=== PATIENT | female | born 1965 | race Two or more races ===

== ENCOUNTER 2016-10-03 03:01 | Inpatient (IN) | payer MEDICAID ==
[~2016-10-03] VITALS: Ht 162.6 cm; Wt 150.1 kg
[~2016-10-03 03:01] MED LIST: ALBU2.5V13 NEB; AMLO2.5T2 PO; ASPI-1035 PO; BACL-141 PO; BENA40TA66 PO; CITA10TA69 PO; FAMO20TA96 PO; FLUT1DIS3 IH; GABA-531 PO; METF850T2 PO; METH4TAB17 PO; MONT4TAB8 PO; Metoprolol Tartrate PO; OYSCO; PANT40TA4 PO
[2016-10-03] MEDS ORDERED: SODIUM CHLORIDE 0.9% 1,000 ML IV ONE (03:06)
[2016-10-03] MEDS ORDERED: IPRATROPIUM BROMIDE (0.02%) 0.5MG/2.5ML NEB HHN STA (03:06)
[2016-10-03] MEDS ORDERED: METHYLPREDNISOLONE SOD SUCC 125 MG/2 ML VIAL IV STA (03:06)
[2016-10-03] MEDS ORDERED: IPRATROPIUM/ALBUTEROL 0.5-3(2.5)MG/3ML NEB ONE (03:12)
[2016-10-03] MEDS ORDERED: MAGNESIUM 2 G PREMIX 50 ML IV ONE (03:15)
[2016-10-03] MEDS ORDERED: ALBUTEROL (0.083%) 2.5MG/3ML NEB HHN SCH ×2 (03:30→19:00)
[2016-10-03 04:10] LABS: ALBUMIN 3.5 g/dL (3.4-5.0); ANION GAP 14; CALCIUM 8.2 mg/dL (8.5-10.1); CARBON DIOXIDE 24 mEq/L (21-32); CHLORIDE 108 mEq/L (98-107); INDEX HEMOLYSI 1 (1-3); INDEX ICTERIC 1 (1-4); INDEX LIPEMIC 1 (1-3)
[2016-10-03 04:12] LABS: ALANINE AMINOTRANSFERASE 22 IU/L (13-61)
[2016-10-03 04:16] LABS: BASOPHILS % 0.7 % (0.0-2.0); EOSINOPHILS % 3.9 % (0.0-5.0); HEMATOCRIT. 34.1 % (36.0-48.0); HEMOGLOBIN. 10.8 g/dL (12.0-16.0); MEAN CORPUSCULAR HEMOGLOBIN 27.6 pg (28.0-32.0); MEAN CORPUSCULAR HGB CONC 31.8 g/dL (31.0-37.0); MEAN CORPUSCULAR VOLUME 86.7 fL (81.0-99.0); MEAN PLATELET VOLUME 7.4 fl (7.4-10.4); MONOCYTES % 6.6 % (2.0-8.0); NEUTROPHILS % 44.8 % (40.0-76.0); PLATELET 375 x1000/uL (130-400); RED BLOOD CELL COUNT 3.94 mill/uL (4.2-5.4); RED CELL DISTRIBUTION WIDTH 15.6 % (11.6-14.6); WHITE BLOOD COUNT 7.5 x1000/uL (4.5-11.0); eGFR > 60 mL/min (>60)
[2016-10-03 04:17] LABS: NT PRO B-TYPE NATRIURETIC PEP 47 pg/mL (5-125); TROPONIN I < 0.02 ng/mL (0.00-0.04)
[2016-10-03 04:19] LABS: UREA NITROGEN BLOOD 4 mg/dL (7-21)
[2016-10-03 04:20] LABS: LACTIC ACID 2.5 mmol/L (0.4-2.0)
[2016-10-03] MEDS ORDERED: KETOROLAC 15MG/ML VIAL IV ONE (04:45)
[2016-10-03] MEDS ORDERED: GUAIFENESIN/CODEINE 200-20MG/10ML UDC PO ONE (04:45)
[2016-10-03] MEDS ORDERED: ONDANSETRON HCL 4MG/2ML VIAL IV ONE (05:45)
[2016-10-03] MEDS ORDERED: MORPHINE SULFATE 4 MG/ML CPJ (NOT FOR IM USE) IV ONE (05:45)
[2016-10-03 08:00] VITALS: BP 110/76
[2016-10-03] MEDS ORDERED: PIPERACILLIN/TAZ 3.375G PREMIX 50 ML IV SCH (08:00)
[2016-10-03 08:04] VITALS: BP 110/76
[2016-10-03] MEDS ORDERED: ACETAMINOPHEN 650MG SUPP PR PRN (08:15)
[2016-10-03] MEDS ORDERED: ACETAMINOPHEN 325MG TABLET PO PRN (08:15)
[2016-10-03] MEDS ORDERED: VANCOMYCIN 1500MG in DEXTROSE 5% WATER 250ML IV NR (08:15)
[2016-10-03] MEDS ORDERED: DIPHENHYDRAMINE 50MG/ML VIAL IV PRN (08:15)
[2016-10-03] MEDS ORDERED: MAGNESIUM/ALUMINUM HYDROXIDE/SIMETHICONE 30ML UDC PO PRN (08:15)
[2016-10-03] MEDS ORDERED: IPRATROPIUM/ALBUTEROL 0.5-3(2.5)MG/3ML NEB INH PRN (08:15)
[2016-10-03] MEDS ORDERED: DOCUSATE SODIUM 100MG CAPSULE PO PRN (08:15)
[2016-10-03] MEDS ORDERED: ACETAMINOPHEN 650MG/20.3ML UDC GT PRN (08:15)
[2016-10-03] MEDS ORDERED: ONDANSETRON HCL 4MG/2ML VIAL IV PRN (08:15)
[2016-10-03] MEDS ORDERED: NA PHOS,M-B/NA PHOS,DI-BA ENEMA 118ML PR PRN (08:15)
[2016-10-03 08:47] LABS: BG BASE EXCESS -7.2 mmol/L (-2.0-2.0); BG CARBOXYHEMOGLOBIN 0.2 % (0.5-1.5); BG DEOXYHEMOGLOBIN 3.7 % (0.0-5.0); BG FRACTION INSPIRED OXYGEN 28; BG HCO3 ACT 18.1 mmol/L (22.0-26.0); BG METHEMOGLOBIN 0.4 % (0.0-1.5); BG OXYGEN SATURATION 96.3 % (92.0-98.5); BG OXYHEMOGLOBIN 95.7 % (94.0-97.0); BG PCO2 35.7 mmHg (35.0-45.0); BG PH 7.323 (7.350-7.450); BG PO2 94.1 mmHg (75.0-100.0); BG SAMPLE SITE LEFT BRACHIAL; BG TOTAL HEMOGLOBIN 11.6 g/dL (12.0-18.0); BG VENT MODE NASAL CANNULA
[2016-10-03] MEDS: ENOXAPARIN 40MG/0.4ML SYR SUBCUT SCH ×2 (09:00→20:08)
[2016-10-03] MEDS ORDERED: LEVOFLOXACIN 750MG PREMIX 150 ML IV SCH (09:00)
[2016-10-03] MEDS: PIPERACILLIN/TAZ 3.375G PREMIX 50 ML IV SCH ×4 (10:00→20:10)
[2016-10-03 10:04] LABS: BASOPHILS % 0.4 % (0.0-2.0); EOSINOPHILS % 0.1 % (0.0-5.0); HEMATOCRIT. 32.1 % (36.0-48.0); HEMOGLOBIN. 10.3 g/dL (12.0-16.0); LYMPHOCYTES % 9.8 % (20.0-50.0); MEAN CORPUSCULAR HEMOGLOBIN 28.1 pg (28.0-32.0); MEAN CORPUSCULAR HGB CONC 32.1 g/dL (31.0-37.0); MEAN CORPUSCULAR VOLUME 87.5 fL (81.0-99.0); MEAN PLATELET VOLUME 7.4 fl (7.4-10.4); MONOCYTES % 0.6 % (2.0-8.0); NEUTROPHILS % 89.1 % (40.0-76.0); PLATELET 356 x1000/uL (130-400); RED BLOOD CELL COUNT 3.67 mill/uL (4.2-5.4); RED CELL DISTRIBUTION WIDTH 15.8 % (11.6-14.6)
[2016-10-03 10:21] LABS: ALANINE AMINOTRANSFERASE 25 IU/L (13-61); ALBUMIN 3.2 g/dL (3.4-5.0); ANION GAP 16; CALCIUM 7.9 mg/dL (8.5-10.1); CARBON DIOXIDE 22 mEq/L (21-32); CHLORIDE 107 mEq/L (98-107); INDEX HEMOLYSI 1 (1-3); INDEX ICTERIC 1 (1-4); INDEX LIPEMIC 1 (1-3); UREA NITROGEN BLOOD 5 mg/dL (7-21); eGFR > 60 mL/min (>60)
[2016-10-03] MEDS ORDERED: POTASSIUM CHLORIDE 20 MEQ/PACKET PO SCH (10:45)
[2016-10-03] MEDS ORDERED: PNEUMOCOCCAL VACCINE IM ONE (11:00)
[2016-10-03] MEDS: VANCOMYCIN 1500MG in DEXTROSE 5% WATER 250ML IV NR ×2 (11:00→13:30)
[2016-10-03] MEDS: HYDROCODONE/ACETAMINOPHEN 5/325MG TABLET PO PRN ×2 (11:16→17:11)
[2016-10-03 12:00] VITALS: BP 115/80
[2016-10-03] MEDS ORDERED: DEXTROSE 50% WATER 50ML SYRINGE IV PRN (12:00)
[2016-10-03] MEDS: BLOOD SUGAR DIAGNOSTIC STRIP TEST SCH ×3 (12:47→20:38)
[2016-10-03] MEDS: INSULIN LISPRO 100 UNITS/ML SUBCUT SCH ×3 (13:29→21:36)
[2016-10-03] MEDS: GUAIFENESIN 200MG/10ML SUGAR FREE UDC PO PRN (13:37)
[2016-10-03] MEDS: SODIUM CHLORIDE 0.9% INJ 3ML FLUSH IVF SCH ×2 (14:00→20:10)
[2016-10-03] MEDS: IPRATROPIUM/ALBUTEROL 0.5-3(2.5)MG/3ML NEB INH SCH ×3 (14:01→23:46)
[2016-10-03] MEDS: BUDESONIDE 0.5MG/2ML NEB HHN SCH ×2 (14:02→20:20)
[2016-10-03] MEDS ORDERED: LIDOCAINE HCL/PF 1% 2ML VIAL ONE (14:10)
[2016-10-03 16:18] LABS: CREATINE KINASE MB FRACTION 1.1 ng/mL (0.5-3.6); TROPONIN I < 0.02 ng/mL (0.00-0.04)
[2016-10-03] MEDS: METHYLPREDNISOLONE SOD SUCC 125 MG/2 ML VIAL IV SCH ×2 (17:11→20:09)
[2016-10-03] MEDS: GABAPENTIN 300MG CAPSULE PO SCH (18:00)
[2016-10-03] MEDS: CLONIDINE 0.1MG TABLET PO PRN (18:17)
[2016-10-03] MEDS ORDERED: METHYLPREDNISOLONE 4MG TABLET PO SCH (19:00)
[2016-10-03 20:00] VITALS: BP 163/113
[2016-10-03] MEDS: ASPIRIN 81MG EC TABLET PO SCH (20:07)
[2016-10-03] MEDS: GUAIFENESIN 600MG ER TABLET PO SCH (20:07)
[2016-10-03] MEDS: METFORMIN HCL 850MG TABLET PO SCH (20:07)
[2016-10-03] MEDS: BACLOFEN 10MG TABLET PO SCH (20:07)
[2016-10-03] MEDS: CITALOPRAM HYDROBROMIDE 10MG TABLET PO SCH (20:07)
[2016-10-03] MEDS: MORPHINE SULFATE 2 MG/ML CPJ (NOT FOR IM USE) IV PRN (20:08)
[2016-10-03] MEDS: VANCOMYCIN 1500MG in DEXTROSE 5% WATER 250ML IV SCH (20:10)
[2016-10-03] MEDS: FAMOTIDINE 20MG TABLET PO SCH (20:13)
[2016-10-03] MEDS: AMLODIPINE 2.5MG TABLET PO SCH (20:13)
[2016-10-03] MEDS ORDERED: PANTOPRAZOLE 40MG DR TABLET PO SCH (21:00)
[2016-10-03 21:40] VITALS: BP 156/90
[2016-10-03 23:09] LABS: TROPONIN I < 0.02 ng/mL (0.00-0.04)
[2016-10-04] VITALS: BP 145/96
[2016-10-04] MEDS: PIPERACILLIN/TAZ 3.375G PREMIX 50 ML IV SCH ×4 (03:35→21:42)
[2016-10-04 04:00] VITALS: BP 145/90
[2016-10-04] MEDS: METHYLPREDNISOLONE SOD SUCC 125 MG/2 ML VIAL IV SCH (05:34)
[2016-10-04] MEDS: SODIUM CHLORIDE 0.9% INJ 3ML FLUSH IVF SCH ×3 (05:34→21:10)
[2016-10-04] MEDS: BLOOD SUGAR DIAGNOSTIC STRIP TEST SCH ×4 (05:40→21:12)
[2016-10-04] MEDS: MORPHINE SULFATE 2 MG/ML CPJ (NOT FOR IM USE) IV PRN ×5 (05:42→23:03)
[2016-10-04] MEDS: IPRATROPIUM/ALBUTEROL 0.5-3(2.5)MG/3ML NEB INH SCH ×3 (06:00→21:04)
[2016-10-04 08:00] VITALS: BP 147/80
[2016-10-04] MEDS: GUAIFENESIN 600MG ER TABLET PO SCH ×2 (08:26→20:47)
[2016-10-04] MEDS: BACLOFEN 10MG TABLET PO SCH ×3 (08:27→16:59)
[2016-10-04] MEDS: FAMOTIDINE 20MG TABLET PO SCH ×2 (08:27→20:47)
[2016-10-04] MEDS: METFORMIN HCL 850MG TABLET PO SCH ×2 (08:27→16:58)
[2016-10-04] MEDS: AMLODIPINE 2.5MG TABLET PO SCH (08:27)
[2016-10-04] MEDS: CITALOPRAM HYDROBROMIDE 10MG TABLET PO SCH (08:27)
[2016-10-04] MEDS: ASPIRIN 81MG EC TABLET PO SCH (08:27)
[2016-10-04] MEDS: INSULIN LISPRO 100 UNITS/ML SUBCUT SCH ×4 (08:29→21:00)
[2016-10-04] MEDS: ENOXAPARIN 40MG/0.4ML SYR SUBCUT SCH ×3 (08:29→20:57)
[2016-10-04] MEDS: VANCOMYCIN 1500MG in DEXTROSE 5% WATER 250ML IV SCH ×2 (09:23→20:47)
[2016-10-04] MEDS: BUDESONIDE 0.5MG/2ML NEB HHN SCH ×2 (09:27→21:04)
[2016-10-04] MEDS: GABAPENTIN 300MG CAPSULE PO SCH ×3 (09:28→17:46)
[2016-10-04 12:00] VITALS: BP 151/93
[2016-10-04 16:00] VITALS: BP 142/91
[2016-10-04] MEDS: DIPHENHYDRAMINE 50MG/ML VIAL IV PRN (19:12)
[2016-10-04 20:00] VITALS: BP 109/77
[2016-10-04] MEDS: METHYLPREDNISOLONE SOD SUCC 40 MG/ML VIAL IV SCH (20:47)
[2016-10-05] VITALS: BP 162/108
[2016-10-05] MEDS: DIPHENHYDRAMINE 50MG/ML VIAL IV PRN ×3 (01:49→21:41)
[2016-10-05] MEDS: IPRATROPIUM/ALBUTEROL 0.5-3(2.5)MG/3ML NEB INH SCH ×5 (02:40→20:35)
[2016-10-05 04:00] VITALS: BP 158/105
[2016-10-05] MEDS: PIPERACILLIN/TAZ 3.375G PREMIX 50 ML IV SCH ×4 (04:01→21:33)
[2016-10-05] MEDS: SODIUM CHLORIDE 0.9% INJ 3ML FLUSH IVF SCH ×3 (05:24→21:34)
[2016-10-05] MEDS: MORPHINE SULFATE 2 MG/ML CPJ (NOT FOR IM USE) IV PRN ×4 (05:40→22:45)
[2016-10-05] MEDS: BLOOD SUGAR DIAGNOSTIC STRIP TEST SCH ×4 (05:48→20:31)
[2016-10-05 07:55] LABS: BASOPHILS % 0.1 % (0.0-2.0); EOSINOPHILS % 0.1 % (0.0-5.0); HEMATOCRIT. 33.5 % (36.0-48.0); HEMOGLOBIN. 10.5 g/dL (12.0-16.0); MEAN CORPUSCULAR HEMOGLOBIN 27.6 pg (28.0-32.0); MEAN CORPUSCULAR HGB CONC 31.2 g/dL (31.0-37.0); MEAN CORPUSCULAR VOLUME 88.4 fL (81.0-99.0); MONOCYTES % 3.6 % (2.0-8.0); NEUTROPHILS % 84.2 % (40.0-76.0); PLATELET 386 x1000/uL (130-400); RED BLOOD CELL COUNT 3.79 mill/uL (4.2-5.4); RED CELL DISTRIBUTION WIDTH 15.7 % (11.6-14.6); WHITE BLOOD COUNT 11.8 x1000/uL (4.5-11.0)
[2016-10-05 08:00] VITALS: BP 142/94
[2016-10-05] MEDS: BUDESONIDE 0.5MG/2ML NEB HHN SCH ×2 (08:10→20:36)
[2016-10-05] MEDS: CITALOPRAM HYDROBROMIDE 10MG TABLET PO SCH (08:30)
[2016-10-05] MEDS: BACLOFEN 10MG TABLET PO SCH ×3 (08:30→17:06)
[2016-10-05] MEDS: METHYLPREDNISOLONE SOD SUCC 40 MG/ML VIAL IV SCH (08:30)
[2016-10-05] MEDS: GABAPENTIN 300MG CAPSULE PO SCH ×3 (08:31→17:06)
[2016-10-05] MEDS: GUAIFENESIN 600MG ER TABLET PO SCH ×2 (08:31→21:34)
[2016-10-05] MEDS: AMLODIPINE 2.5MG TABLET PO SCH (08:32)
[2016-10-05] MEDS: FAMOTIDINE 20MG TABLET PO SCH ×2 (08:32→21:33)
[2016-10-05] MEDS: ASPIRIN 81MG EC TABLET PO SCH (08:32)
[2016-10-05] MEDS: METFORMIN HCL 850MG TABLET PO SCH ×2 (08:34→17:12)
[2016-10-05] MEDS: ENOXAPARIN 40MG/0.4ML SYR SUBCUT SCH ×2 (08:34→21:00)
[2016-10-05 08:35] LABS: ANION GAP 12; CALCIUM 9.7 mg/dL (8.5-10.1); CARBON DIOXIDE 31 mEq/L (21-32); CHLORIDE 100 mEq/L (98-107); INDEX HEMOLYSI 1 (1-3); INDEX ICTERIC 1 (1-4); INDEX LIPEMIC 1 (1-3); UREA NITROGEN BLOOD 12 mg/dL (7-21); eGFR > 60 mL/min (>60)
[2016-10-05] MEDS: INSULIN LISPRO 100 UNITS/ML SUBCUT SCH ×4 (08:36→21:39)
[2016-10-05] MEDS: VANCOMYCIN 1500MG in DEXTROSE 5% WATER 250ML IV SCH (08:50)
[2016-10-05 12:00] VITALS: BP 141/103
[2016-10-05] MEDS: VANCOMYCIN 1250MG in DEXTROSE 5% WATER 250ML IV SCH ×2 (14:49→21:33)
[2016-10-05 16:00] VITALS: BP 150/97
[2016-10-05 20:00] VITALS: BP 135/83
[2016-10-06] MEDS: IPRATROPIUM/ALBUTEROL 0.5-3(2.5)MG/3ML NEB INH SCH ×6 (00:56→21:10)
[2016-10-06 04:00] VITALS: BP 141/99
[2016-10-06] MEDS: PIPERACILLIN/TAZ 3.375G PREMIX 50 ML IV SCH ×4 (04:13→21:55)
[2016-10-06] MEDS: GUAIFENESIN 200MG/10ML SUGAR FREE UDC PO PRN ×2 (04:22→08:53)
[2016-10-06] MEDS: MORPHINE SULFATE 2 MG/ML CPJ (NOT FOR IM USE) IV PRN ×4 (04:24→19:46)
[2016-10-06] MEDS: DIPHENHYDRAMINE 50MG/ML VIAL IV PRN ×3 (04:36→21:54)
[2016-10-06] MEDS: VANCOMYCIN 1250MG in DEXTROSE 5% WATER 250ML IV SCH ×3 (05:35→22:26)
[2016-10-06] MEDS: BLOOD SUGAR DIAGNOSTIC STRIP TEST SCH ×4 (05:35→21:55)
[2016-10-06] MEDS: SODIUM CHLORIDE 0.9% INJ 3ML FLUSH IVF SCH ×3 (05:35→21:55)
[2016-10-06] MEDS: BUDESONIDE 0.5MG/2ML NEB HHN SCH ×2 (07:44→21:11)
[2016-10-06 08:00] VITALS: BP 164/99
[2016-10-06] MEDS: INSULIN LISPRO 100 UNITS/ML SUBCUT SCH ×4 (08:10→21:00)
[2016-10-06] MEDS: GABAPENTIN 300MG CAPSULE PO SCH ×3 (08:53→16:03)
[2016-10-06] MEDS: ENOXAPARIN 40MG/0.4ML SYR SUBCUT SCH ×2 (08:53→21:00)
[2016-10-06] MEDS: AMLODIPINE 2.5MG TABLET PO SCH (08:53)
[2016-10-06] MEDS: METFORMIN HCL 850MG TABLET PO SCH ×2 (08:53→18:34)
[2016-10-06] MEDS: METHYLPREDNISOLONE SOD SUCC 40 MG/ML VIAL IV SCH (08:54)
[2016-10-06] MEDS: ASPIRIN 81MG EC TABLET PO SCH (08:54)
[2016-10-06] MEDS: CITALOPRAM HYDROBROMIDE 10MG TABLET PO SCH (08:54)
[2016-10-06] MEDS: FAMOTIDINE 20MG TABLET PO SCH ×2 (08:54→21:54)
[2016-10-06] MEDS: BACLOFEN 10MG TABLET PO SCH ×3 (08:54→16:03)
[2016-10-06] MEDS: GUAIFENESIN 600MG ER TABLET PO SCH ×2 (08:59→21:54)
[2016-10-06 12:00] VITALS: BP 146/105
[2016-10-06 16:00] VITALS: BP 144/93
[2016-10-06 20:00] VITALS: BP 139/97
[2016-10-07] VITALS: BP 139/97
[2016-10-07] MEDS: IPRATROPIUM/ALBUTEROL 0.5-3(2.5)MG/3ML NEB INH SCH ×6 (00:27→20:07)
[2016-10-07] MEDS: MORPHINE SULFATE 2 MG/ML CPJ (NOT FOR IM USE) IV PRN ×4 (01:30→14:33)
[2016-10-07] MEDS: PIPERACILLIN/TAZ 3.375G PREMIX 50 ML IV SCH ×4 (03:36→21:01)
[2016-10-07] MEDS: DIPHENHYDRAMINE 50MG/ML VIAL IV PRN ×3 (03:36→16:31)
[2016-10-07 04:00] VITALS: BP 150/98
[2016-10-07] MEDS: VANCOMYCIN 1250MG in DEXTROSE 5% WATER 250ML IV SCH ×3 (05:39→22:49)
[2016-10-07] MEDS: CLONIDINE 0.1MG TABLET PO PRN ×2 (05:39→20:57)
[2016-10-07] MEDS: SODIUM CHLORIDE 0.9% INJ 3ML FLUSH IVF SCH ×3 (05:40→21:01)
[2016-10-07] MEDS: BLOOD SUGAR DIAGNOSTIC STRIP TEST SCH ×4 (06:12→21:00)
[2016-10-07 06:28] LABS: BASOPHILS % 0.1 % (0.0-2.0); HEMATOCRIT. 32.2 % (36.0-48.0); HEMOGLOBIN. 10.2 g/dL (12.0-16.0); LYMPHOCYTES % 25.2 % (20.0-50.0); MEAN CORPUSCULAR HEMOGLOBIN 27.7 pg (28.0-32.0); MEAN CORPUSCULAR HGB CONC 31.8 g/dL (31.0-37.0); MEAN CORPUSCULAR VOLUME 87.2 fL (81.0-99.0); MEAN PLATELET VOLUME 7.6 fl (7.4-10.4); NEUTROPHILS % 66.7 % (40.0-76.0); PLATELET 404 x1000/uL (130-400); RED BLOOD CELL COUNT 3.69 mill/uL (4.2-5.4); RED CELL DISTRIBUTION WIDTH 16.2 % (11.6-14.6); WHITE BLOOD COUNT 14.2 x1000/uL (4.5-11.0)
[2016-10-07 07:15] LABS: ANION GAP 12; CALCIUM 9.4 mg/dL (8.5-10.1); CARBON DIOXIDE 33 mEq/L (21-32); CHLORIDE 99 mEq/L (98-107); INDEX HEMOLYSI 1 (1-3); INDEX ICTERIC 1 (1-4); INDEX LIPEMIC 1 (1-3); UREA NITROGEN BLOOD 17 mg/dL (7-21); VANCOMYCIN TROUGH 18.7 ug/mL (5.0-10.0); eGFR > 60 mL/min (>60)
[2016-10-07 08:00] VITALS: BP 134/90
[2016-10-07] MEDS: INSULIN LISPRO 100 UNITS/ML SUBCUT SCH ×4 (08:10→22:50)
[2016-10-07] MEDS: BUDESONIDE 0.5MG/2ML NEB HHN SCH ×2 (08:14→20:08)
[2016-10-07] MEDS: GABAPENTIN 300MG CAPSULE PO SCH ×3 (08:57→16:31)
[2016-10-07] MEDS: FAMOTIDINE 20MG TABLET PO SCH ×2 (08:57→20:57)
[2016-10-07] MEDS: GUAIFENESIN 600MG ER TABLET PO SCH ×2 (08:57→20:58)
[2016-10-07] MEDS: METFORMIN HCL 850MG TABLET PO SCH ×2 (08:57→18:03)
[2016-10-07] MEDS: CITALOPRAM HYDROBROMIDE 10MG TABLET PO SCH (08:57)
[2016-10-07] MEDS: BACLOFEN 10MG TABLET PO SCH ×3 (08:57→16:31)
[2016-10-07] MEDS: AMLODIPINE 2.5MG TABLET PO SCH (08:58)
[2016-10-07] MEDS: ASPIRIN 81MG EC TABLET PO SCH (08:58)
[2016-10-07] MEDS: METHYLPREDNISOLONE SOD SUCC 40 MG/ML VIAL IV SCH (08:58)
[2016-10-07] MEDS: ENOXAPARIN 40MG/0.4ML SYR SUBCUT SCH ×2 (09:01→20:58)
[2016-10-07 12:00] VITALS: BP 121/77
[2016-10-07] MEDS: GUAIFENESIN 200MG/10ML SUGAR FREE UDC PO PRN (14:25)
[2016-10-07 16:00] VITALS: BP 157/101
[2016-10-07 20:00] VITALS: BP 152/102
[2016-10-08] VITALS: BP 137/92
[2016-10-08] MEDS: IPRATROPIUM/ALBUTEROL 0.5-3(2.5)MG/3ML NEB INH SCH ×3 (00:23→11:38)
[2016-10-08] MEDS: PIPERACILLIN/TAZ 3.375G PREMIX 50 ML IV SCH ×2 (03:37→10:00)
[2016-10-08 04:00] VITALS: BP 148/99
[2016-10-08] MEDS: VANCOMYCIN 1250MG in DEXTROSE 5% WATER 250ML IV SCH (05:40)
[2016-10-08] MEDS: SODIUM CHLORIDE 0.9% INJ 3ML FLUSH IVF SCH (05:40)
[2016-10-08] MEDS: CLONIDINE 0.1MG TABLET PO PRN (05:42)
[2016-10-08] MEDS: BLOOD SUGAR DIAGNOSTIC STRIP TEST SCH ×2 (05:42→13:18)
[2016-10-08 08:00] VITALS: BP 134/91
[2016-10-08] MEDS: INSULIN LISPRO 100 UNITS/ML SUBCUT SCH ×2 (08:10→13:32)
[2016-10-08] MEDS: GUAIFENESIN 600MG ER TABLET PO SCH (08:33)
[2016-10-08] MEDS: FAMOTIDINE 20MG TABLET PO SCH (08:34)
[2016-10-08] MEDS: AMLODIPINE 2.5MG TABLET PO SCH (08:34)
[2016-10-08] MEDS: BACLOFEN 10MG TABLET PO SCH ×2 (08:35→13:00)
[2016-10-08] MEDS: ASPIRIN 81MG EC TABLET PO SCH (08:35)
[2016-10-08] MEDS: GABAPENTIN 300MG CAPSULE PO SCH ×2 (08:35→13:00)
[2016-10-08] MEDS: CITALOPRAM HYDROBROMIDE 10MG TABLET PO SCH (08:35)
[2016-10-08] MEDS: ENOXAPARIN 40MG/0.4ML SYR SUBCUT SCH (08:36)
[2016-10-08] MEDS: METFORMIN HCL 850MG TABLET PO SCH (08:42)
[2016-10-08] MEDS ORDERED: PREDNISONE 20MG TABLET PO SCH (09:00)
[2016-10-08 11:32] VITALS: BP 134/91
[2016-10-08 12:00] VITALS: BP 136/93
== END 2016-10-08 15:15 | disposition home or self-care (01) | DRG 140 ==
LOC: ER 03:05 → EDUNIT# 03:05 → 7WST 04:38
PROVIDERS: ADMIT Family Medicine; ATTEND Family Medicine
PROC: 02HV33Z Insertion of Infusion Device into Superior Vena Cava, Percutaneous Approach (ICD-10-PCS; principal; 2016-10-03)
PROC: B5181ZA Fluoroscopy of Superior Vena Cava using Low Osmolar Contrast, Guidance (ICD-10-PCS; 2016-10-03)
PROC: B548ZZA Ultrasonography of Superior Vena Cava, Guidance (ICD-10-PCS; 2016-10-03)
PROC: 5A09457 Assistance with Respiratory Ventilation, 24-96 Consecutive Hours, Continuous Positive Airway Pressure (ICD-10-PCS; 2016-10-03)
DX: J44.0 Chronic obstructive pulmonary disease with (acute) lower respiratory infection (principal); J96.20 Acute and chronic respiratory failure, unspecified whether with hypoxia or hypercapnia; I50.33 Acute on chronic diastolic (congestive) heart failure; J15.6 Pneumonia due to other Gram-negative bacteria; E87.2 Acidosis; Z99.81 Dependence on supplemental oxygen; I11.0 Hypertensive heart disease with heart failure; E11.9 Type 2 diabetes mellitus without complications; D72.829 Elevated white blood cell count, unspecified; E44.1 Mild protein-calorie malnutrition; J20.9 Acute bronchitis, unspecified; M19.90 Unspecified osteoarthritis, unspecified site; E66.01 Morbid (severe) obesity due to excess calories; G47.30 Sleep apnea, unspecified; T38.0X5A Adverse effect of glucocorticoids and synthetic analogues, initial encounter; E78.00 Pure hypercholesterolemia, unspecified; G89.29 Other chronic pain; J44.1 Chronic obstructive pulmonary disease with (acute) exacerbation; Z82.49 Family history of ischemic heart disease and other diseases of the circulatory system; Z87.891 Personal history of nicotine dependence; Z68.43 Body mass index [BMI] 50.0-59.9, adult; Z90.49 Acquired absence of other specified parts of digestive tract; Z88.1 Allergy status to other antibiotic agents; Z91.018 Allergy to other foods; Z79.899 Other long term (current) drug therapy; Z71.89 Other specified counseling; Z90.710 Acquired absence of both cervix and uterus; Y92.89 Other specified places as the place of occurrence of the external cause
CPT/HCPCS: 36415; 36569; 36600; 71010; 76937; 77001; 80048; 80053; 80202; 82375; 82553; 82805; 82962; 83605; 83880; 84484; 85025; 87040; 93306; 94640; 94660; 96365; 96375; 99291; C1725; J1200; J1650; J1815; J1885; J2270; J2405; J2543; J2920; J2930; J3370; J3475; J3490; J7030; J7040; J7050; J7060; J7512; J7611; J7620; J7626

== ENCOUNTER 2016-10-20 06:07 | Emergency (ER) | payer MEDICAID ==
[~2016-10-20] VITALS: Ht 162.6 cm; Wt 136.0 kg
[2016-10-20] MEDS ORDERED: SODIUM CHLORIDE 0.9% 1,000 ML IV ONE (06:27)
[2016-10-20] MEDS ORDERED: LIDOCAINE HCL/PF 1% 2ML VIAL ONE (06:27)
[2016-10-20] MEDS ORDERED: METHYLPREDNISOLONE SOD SUCC 125 MG/2 ML VIAL IV STA (06:27)
[2016-10-20] MEDS ORDERED: IPRATROPIUM/ALBUTEROL 0.5-3(2.5)MG/3ML NEB HHN ONE (06:30)
[2016-10-20] MEDS ORDERED: MAGNESIUM 2 G PREMIX 50 ML IV ONE (06:30)
[2016-10-20] MEDS ORDERED: ASPIRIN 81MG TABLET PO ONE (06:30)
[2016-10-20 06:50] LABS: BASOPHILS % 0.5 % (0.0-2.0); EOSINOPHILS % 1.3 % (0.0-5.0); HEMATOCRIT. 36.3 % (36.0-48.0); HEMOGLOBIN. 11.5 g/dL (12.0-16.0); LYMPHOCYTES % 31.8 % (20.0-50.0); MEAN CORPUSCULAR HEMOGLOBIN 27.2 pg (28.0-32.0); MEAN CORPUSCULAR HGB CONC 31.7 g/dL (31.0-37.0); MEAN CORPUSCULAR VOLUME 85.9 fL (81.0-99.0); MEAN PLATELET VOLUME 6.9 fl (7.4-10.4); MONOCYTES % 6.8 % (2.0-8.0); NEUTROPHILS % 59.6 % (40.0-76.0); PLATELET 377 x1000/uL (130-400); RED BLOOD CELL COUNT 4.22 mill/uL (4.2-5.4); RED CELL DISTRIBUTION WIDTH 16.8 % (11.6-14.6); WHITE BLOOD COUNT 14.6 x1000/uL (4.5-11.0)
[2016-10-20 07:06] LABS: ALANINE AMINOTRANSFERASE 34 IU/L (13-61); ALBUMIN 3.4 g/dL (3.4-5.0); ANION GAP 15; CALCIUM 8.8 mg/dL (8.5-10.1); CARBON DIOXIDE 28 mEq/L (21-32); CHLORIDE 100 mEq/L (98-107); INDEX HEMOLYSI 1 (1-3); INDEX ICTERIC 1 (1-4); INDEX LIPEMIC 1 (1-3); NT PRO B-TYPE NATRIURETIC PEP 86 pg/mL (5-125); TROPONIN I < 0.02 ng/mL (0.00-0.04); UREA NITROGEN BLOOD 18 mg/dL (7-21); eGFR > 60 mL/min (>60)
[2016-10-20 07:18] LABS: BG BASE EXCESS 4.1 mmol/L (-2.0-2.0); BG DEOXYHEMOGLOBIN 5.2 % (0.0-5.0); BG FRACTION INSPIRED OXYGEN 21; BG HCO3 ACT 28.8 mmol/L (22.0-26.0); BG METHEMOGLOBIN 0.2 % (0.0-1.5); BG OXYGEN SATURATION 94.7 % (92.0-98.5); BG OXYHEMOGLOBIN 92.6 % (94.0-97.0); BG PCO2 43.8 mmHg (35.0-45.0); BG PH 7.436 (7.350-7.450); BG PO2 78.5 mmHg (75.0-100.0); BG SAMPLE SITE RIGHT RADIAL; BG TOTAL HEMOGLOBIN 12.5 g/dL (12.0-18.0); BG VENT MODE ROOM AIR
[2016-10-20 07:19] LABS: D-DIMER 0.27 mg/L FEU (<0.50); PROTHROMBIN TIME 10.7 sec
[2016-10-20] MEDS ORDERED: ALPRAZOLAM 0.5 MG TABLET PO PRN (09:15)
[2016-10-20] MEDS ORDERED: BUDESONIDE 0.5MG/2ML NEB HHN SCH (09:15)
[2016-10-20] MEDS ORDERED: IPRATROPIUM/ALBUTEROL 0.5-3(2.5)MG/3ML NEB HHN PRN (09:15)
[2016-10-20] MEDS ORDERED: HYDROCODONE/ACETAMINOPHEN 5/325MG TABLET PO PRN (11:00)
[2016-10-20] MEDS ORDERED: IPRATROPIUM/ALBUTEROL 0.5-3(2.5)MG/3ML NEB INH PRN (11:00)
[2016-10-20] MEDS ORDERED: ONDANSETRON HCL 4MG/2ML VIAL IV PRN (11:00)
[2016-10-20] MEDS ORDERED: CLONIDINE 0.1MG TABLET PO PRN (11:00)
[2016-10-20] MEDS ORDERED: DOCUSATE SODIUM 100MG CAPSULE PO PRN (11:00)
[2016-10-20] MEDS ORDERED: MAGNESIUM/ALUMINUM HYDROXIDE/SIMETHICONE 30ML UDC PO PRN (11:00)
[2016-10-20] MEDS ORDERED: ENOXAPARIN 40MG/0.4ML SYR SUBCUT SCH ×2 (11:00→21:00)
[2016-10-20] MEDS ORDERED: ACETAMINOPHEN 325MG TABLET PO PRN (11:00)
[2016-10-20] MEDS ORDERED: IPRATROPIUM/ALBUTEROL 0.5-3(2.5)MG/3ML NEB HHN SCH (12:00)
[2016-10-20 14:26] VITALS: BP 131/88
== END 2016-10-20 14:33 | disposition left against medical advice (07) ==
LOC: ER 06:10
DX: J44.1 Chronic obstructive pulmonary disease with (acute) exacerbation (principal); R06.09 Other forms of dyspnea; E11.65 Type 2 diabetes mellitus with hyperglycemia; F41.9 Anxiety disorder, unspecified; F11.20 Opioid dependence, uncomplicated; I50.9 Heart failure, unspecified; I11.0 Hypertensive heart disease with heart failure; E66.01 Morbid (severe) obesity due to excess calories; Z79.82 Long term (current) use of aspirin
CPT/HCPCS: 36415; 36600; 71010; 80053; 82375; 82805; 83880; 84484; 85025; 85379; 85610; 87040; 93005; 93970; 94640; 96365; 96372; 96375; 99285; J1650; J2930; J3475; J3490; J7030; Z7610; J7620

== ENCOUNTER 2016-12-27 04:34 | Emergency (ER) | payer MEDICAID ==
[~2016-12-27] VITALS: Ht 167.6 cm; Wt 135.0 kg
[~2016-12-27 04:34] MED LIST changes: -ASPI-1035 PO; +ASPI-1159 PO; +CITA10TA16 PO; -CITA10TA69 PO; +METF10002 PO
[2016-12-27] MEDS ORDERED: METHYLPREDNISOLONE SOD SUCC 125 MG/2 ML VIAL IV STA (06:40)
[2016-12-27] MEDS ORDERED: IPRATROPIUM BROMIDE (0.02%) 0.5MG/2.5ML NEB HHN STA (06:40)
[2016-12-27] MEDS ORDERED: ALBUTEROL (0.083%) 2.5MG/3ML NEB HHN STA (06:40)
[2016-12-27] MEDS ORDERED: ACETAMINOPHEN 500MG TABLET PO ONE (06:45)
[2016-12-27 07:07] LABS: BASOPHILS % 0.9 % (0.0-2.0); EOSINOPHILS % 5.9 % (0.0-5.0); HEMATOCRIT. 34.7 % (36.0-48.0); HEMOGLOBIN. 11.3 g/dL (12.0-16.0); LYMPHOCYTES % 40.8 % (20.0-50.0); MEAN CORPUSCULAR HEMOGLOBIN 28.9 pg (28.0-32.0); MEAN CORPUSCULAR VOLUME 88.8 fL (81.0-99.0); MEAN PLATELET VOLUME 7.1 fl (7.4-10.4); MONOCYTES % 7.1 % (2.0-8.0); NEUTROPHILS % 45.3 % (40.0-76.0); PLATELET 346 x1000/uL (130-400); RED BLOOD CELL COUNT 3.91 mill/uL (4.2-5.4); RED CELL DISTRIBUTION WIDTH 17.4 % (11.6-14.6)
[2016-12-27 07:18] LABS: D-DIMER 0.92 mg/L FEU (<0.50); PROTHROMBIN TIME 10.7 sec
[2016-12-27 07:23] LABS: CARBON DIOXIDE 23 mEq/L (21-32); CHLORIDE 107 mEq/L (98-107)
[2016-12-27 07:29] LABS: TROPONIN I < 0.02 ng/mL (0.00-0.04)
[2016-12-27] MEDS ORDERED: KETOROLAC 30MG/ML VIAL IV ONE (08:45)
[2016-12-27 10:30] VITALS: BP 152/65
[2016-12-27] MEDS ORDERED: IOHEXOL-350 100 ML BOTTLE ONE (11:51)
[2016-12-27] MEDS ORDERED: SODIUM CHLORIDE 0.9% 10ML VIAL ONE (11:51)
== END 2016-12-27 10:30 | disposition home or self-care (01) ==
LOC: ER 08:12 → CANBEDREQ 13:04
DX: R07.9 Chest pain, unspecified (principal); R51 Headache; J44.9 Chronic obstructive pulmonary disease, unspecified; I10 Essential (primary) hypertension; J45.909 Unspecified asthma, uncomplicated; Z88.1 Allergy status to other antibiotic agents
CPT/HCPCS: 36415; 71010; 71275; 80053; 83880; 84484; 85025; 85379; 85610; 93005; 94640; 96374; 96375; 99285; A4216; J1885; J2930; J7611; Q9967; Z7610

== ENCOUNTER 2017-01-09 02:15 | Emergency (ER) | payer MEDICAID ==
[~2017-01-09] VITALS: Ht 165.1 cm; Wt 138.0 kg
[2017-01-09] MEDS ORDERED: LORAZEPAM 2MG/ML CPJ IV STA (03:24)
[2017-01-09] MEDS ORDERED: MORPHINE SULFATE 4 MG/ML CPJ (NOT FOR IM USE) IV STA (03:24)
[2017-01-09] MEDS ORDERED: ONDANSETRON HCL 4MG/2ML VIAL IV STA (03:24)
[2017-01-09 09:00] VITALS: BP 140/80
== END 2017-01-09 09:35 | disposition home or self-care (01) ==
LOC: ER 02:15
DX: R51 Headache (principal); R06.02 Shortness of breath; I10 Essential (primary) hypertension; E11.9 Type 2 diabetes mellitus without complications; J44.9 Chronic obstructive pulmonary disease, unspecified; F17.200 Nicotine dependence, unspecified, uncomplicated; Z79.82 Long term (current) use of aspirin; Z88.1 Allergy status to other antibiotic agents; Z88.8 Allergy status to other drugs, medicaments and biological substances
CPT/HCPCS: 70450; 71010; 82962; 96374; 96375; 99284; J2060; J2270; J2405; Z7610

== ENCOUNTER 2017-03-07 03:33 | Inpatient (IN) | payer MEDICAID ==
[2017-03-07] VITALS (9 sets, daily range): BP systolic 133–174; BP diastolic 79–108
[~2017-03-07] VITALS: Ht 165.1 cm; Wt 153.3 kg
[~2017-03-07 03:33] MED LIST changes: +FAMO-135 PO; -FAMO20TA96 PO; -METF850T2 PO; -MONT4TAB8 PO; +MONT4TAB9 PO; -Metoprolol Tartrate PO; -OYSCO
[2017-03-07] MEDS ORDERED: NITROGLYCERIN OINT 1GM/INCH UDPKT TD ONE (04:30)
[2017-03-07] MEDS ORDERED: ASPIRIN 81MG TABLET PO ONE (04:30)
[2017-03-07] MEDS ORDERED: LEVOFLOXACIN 750MG PREMIX 150 ML IV ONE ×2 (04:30→05:00)
[2017-03-07] MEDS ORDERED: ALBUTEROL (0.083%) 2.5MG/3ML NEB HHN STA (04:49)
[2017-03-07] MEDS ORDERED: IPRATROPIUM BROMIDE (0.02%) 0.5MG/2.5ML NEB HHN STA (04:49)
[2017-03-07] MEDS ORDERED: METHYLPREDNISOLONE SOD SUCC 125 MG/2 ML VIAL IV STA (04:49)
[2017-03-07] MEDS ORDERED: MAGNESIUM 2 G PREMIX 50 ML IV ONE (05:00)
[2017-03-07 05:07] LABS: BG BILEVEL POS AIRWAY PRESSURE 20/5; BG FRACTION INSPIRED OXYGEN 40; BG HCO3 ACT 24.1 mmol/L (22.0-26.0); BG METHEMOGLOBIN 0.4 % (0.0-1.5); BG OXYHEMOGLOBIN 97.6 % (94.0-97.0); BG PCO2 41.9 mmHg (35.0-45.0); BG PH 7.378 (7.350-7.450); BG PO2 166.3 mmHg (75.0-100.0); BG SAMPLE SITE RIGHT RADIAL; BG TOTAL HEMOGLOBIN 11.2 g/dL (12.0-18.0); BG VENT MODE MASK - BIPAP; BG VENT RATE 16 set
[2017-03-07 06:29] LABS: BASOPHILS % 0.2 % (0.0-2.0); EOSINOPHILS % 1.3 % (0.0-5.0); HEMATOCRIT. 31.5 % (36.0-48.0); HEMOGLOBIN. 10.1 g/dL (12.0-16.0); LYMPHOCYTES % 32.5 % (20.0-50.0); MEAN CORPUSCULAR VOLUME 84.5 fL (81.0-99.0); MEAN PLATELET VOLUME 7.4 fl (7.4-10.4); MONOCYTES % 5.4 % (2.0-8.0); NEUTROPHILS % 60.6 % (40.0-76.0); PLATELET 430 x1000/uL (130-400); RED BLOOD CELL COUNT 3.73 mill/uL (4.2-5.4); RED CELL DISTRIBUTION WIDTH 19.8 % (11.6-14.6)
[2017-03-07 06:33] LABS: PARTIAL THROMBOPLASTIN TIME 25.3 sec (23.4-31.0); PROTHROMBIN TIME 10.8 sec (9.4-11.6)
[2017-03-07 06:51] LABS: CARBON DIOXIDE 26 mEq/L (21-32); CHLORIDE 103 mEq/L (98-107); ETHANOL BLOOD 160 mg/dL
[2017-03-07 06:56] LABS: TROPONIN I < 0.04 ng/mL (0.00-0.04)
[2017-03-07] MEDS ORDERED: MORPHINE SULFATE 2 MG/ML CPJ (NOT FOR IM USE) IV PRN (11:30)
[2017-03-07] MEDS ORDERED: ACETAMINOPHEN 325MG TABLET PO PRN (11:30)
[2017-03-07] MEDS ORDERED: IPRATROPIUM/ALBUTEROL 0.5-3(2.5)MG/3ML NEB INH PRN (11:30)
[2017-03-07] MEDS ORDERED: ONDANSETRON HCL 4MG/2ML VIAL IV PRN (11:30)
[2017-03-07] MEDS ORDERED: METHYLPREDNISOLONE 4MG TABLET PO SCH (12:00)
[2017-03-07] MEDS ORDERED: BENAZEPRIL HCL 20 MG PO SCH (12:00)
[2017-03-07] MEDS ORDERED: FAMOTIDINE(NEO) 1MG/ML SUSP PO SCH (12:00)
[2017-03-07] MEDS ORDERED: MONTELUKAST SODIUM PO SCH (12:00)
[2017-03-07] MEDS ORDERED: ALBUTEROL (0.083%) 2.5MG/3ML NEB INH SCH (12:00)
[2017-03-07] MEDS ORDERED: DEXTROSE 50% WATER 50ML SYRINGE IV PRN (12:15)
[2017-03-07] MEDS: IPRATROPIUM/ALBUTEROL 0.5-3(2.5)MG/3ML NEB INH SCH ×3 (12:18→21:01)
[2017-03-07] MEDS: BACLOFEN 10MG TABLET PO SCH ×3 (13:00→17:43)
[2017-03-07] MEDS: GABAPENTIN 300MG CAPSULE PO SCH ×3 (13:00→17:43)
[2017-03-07] MEDS: BLOOD SUGAR DIAGNOSTIC STRIP TEST SCH ×3 (13:01→20:48)
[2017-03-07] MEDS: CITALOPRAM HYDROBROMIDE 10MG TABLET PO SCH (13:14)
[2017-03-07] MEDS: METHYLPREDNISOLONE SOD SUCC 40 MG/ML VIAL IV SCH ×2 (13:14→20:56)
[2017-03-07] MEDS: INSULIN LISPRO 100 UNITS/ML SUBCUT SCH ×3 (13:15→20:54)
[2017-03-07] MEDS: BENAZEPRIL 20MG TABLET PO SCH ×2 (13:17→20:55)
[2017-03-07] MEDS: AMLODIPINE 2.5MG TABLET PO SCH (13:17)
[2017-03-07] MEDS: MORPHINE SULFATE 4 MG/ML CPJ (NOT FOR IM USE) IV PRN ×2 (13:18→20:18)
[2017-03-07] MEDS ORDERED: POTASSIUM CHLORIDE 20MEQ TABLET SR PO NR (15:00)
[2017-03-07] MEDS: DIPHENHYDRAMINE 50MG/ML VIAL IV PRN ×2 (15:38→20:55)
[2017-03-07] MEDS: GUAIFENESIN-DM 200MG-20MG/10ML UDC PO PRN (15:38)
[2017-03-07] MEDS ORDERED: MEDICATION NOT ON FORMULARY EA (Metformin Hcl 1 TAB) PO SCH (17:00)
[2017-03-07] MEDS ORDERED: MEDICATION NOT ON FORMULARY EA (Fluticasone/Salmeterol (Advair 250-50 Diskus) 1 DISK) IH SCH (17:00)
[2017-03-07] MEDS: METFORMIN HCL 500MG TABLET PO SCH (17:43)
[2017-03-07] MEDS: FAMOTIDINE 20MG TABLET PO SCH (20:55)
[2017-03-07] MEDS: CLONIDINE 0.1MG TABLET PO PRN (20:57)
[2017-03-07] MEDS ORDERED: PANTOPRAZOLE 40MG DR TABLET PO SCH (21:00)
[2017-03-08] VITALS (11 sets, daily range): BP systolic 125–198; BP diastolic 66–102
[2017-03-08] MEDS: IPRATROPIUM/ALBUTEROL 0.5-3(2.5)MG/3ML NEB INH SCH ×6 (00:35→16:33)
[2017-03-08] MEDS: HYDROCODONE/ACETAMINOPHEN 5/325MG TABLET PO PRN ×2 (01:13→20:54)
[2017-03-08] MEDS: DIPHENHYDRAMINE 50MG/ML VIAL IV PRN ×5 (04:01→20:30)
[2017-03-08] MEDS: MORPHINE SULFATE 4 MG/ML CPJ (NOT FOR IM USE) IV PRN ×5 (04:14→20:31)
[2017-03-08] MEDS: METHYLPREDNISOLONE SOD SUCC 40 MG/ML VIAL IV SCH ×3 (05:03→20:54)
[2017-03-08] MEDS: LEVOFLOXACIN 500MG PREMIX 100 ML IV SCH (05:04)
[2017-03-08 06:08] LABS: HEMATOCRIT. 31.2 % (36.0-48.0); HEMOGLOBIN. 9.9 g/dL (12.0-16.0); MEAN CORPUSCULAR HEMOGLOBIN 26.9 pg (28.0-32.0); MEAN PLATELET VOLUME 7.7 fl (7.4-10.4); PLATELET 400 x1000/uL (130-400); RED BLOOD CELL COUNT 3.68 mill/uL (4.2-5.4); RED CELL DISTRIBUTION WIDTH 19.8 % (11.6-14.6)
[2017-03-08 06:44] LABS: CARBON DIOXIDE 26 mEq/L (21-32); CHLORIDE 100 mEq/L (98-107); HDL CHOLESTEROL 101 mg/dL (40-59); LDL CHOLESTEROL 68 mg/dL (5-100)
[2017-03-08] MEDS: BLOOD SUGAR DIAGNOSTIC STRIP TEST SCH ×4 (07:30→20:33)
[2017-03-08] MEDS: ASPIRIN 81MG EC TABLET PO SCH (08:18)
[2017-03-08] MEDS: GABAPENTIN 300MG CAPSULE PO SCH ×3 (08:18→17:28)
[2017-03-08] MEDS: BACLOFEN 10MG TABLET PO SCH ×3 (08:19→17:28)
[2017-03-08] MEDS: METFORMIN HCL 500MG TABLET PO SCH ×2 (08:19→17:28)
[2017-03-08] MEDS: CITALOPRAM HYDROBROMIDE 10MG TABLET PO SCH (08:19)
[2017-03-08] MEDS: FAMOTIDINE 20MG TABLET PO SCH ×2 (08:19→20:29)
[2017-03-08] MEDS: BENAZEPRIL 20MG TABLET PO SCH ×2 (08:23→20:29)
[2017-03-08] MEDS: AMLODIPINE 2.5MG TABLET PO SCH (08:24)
[2017-03-08] MEDS: INSULIN LISPRO 100 UNITS/ML SUBCUT SCH ×4 (08:30→20:48)
[2017-03-08] MEDS: GUAIFENESIN-DM 200MG-20MG/10ML UDC PO PRN (09:17)
[2017-03-08 10:33] LABS: PLATELET ESTIMATE NORMAL
[2017-03-08] MEDS: GUAIFENESIN 600MG ER TABLET PO SCH ×2 (12:27→20:29)
[2017-03-08] MEDS: HYDRALAZINE HCL 25MG TABLET PO SCH ×2 (12:28→20:30)
[2017-03-08] MEDS: ENOXAPARIN 40MG/0.4ML SYR SUBCUT SCH (12:29)
[2017-03-08] MEDS ORDERED: ZOLPIDEM TARTRATE 5MG TABLET PO PRN (22:30)
[2017-03-09] VITALS (12 sets, daily range): BP systolic 138–175; BP diastolic 81–122
[2017-03-09] MEDS: IPRATROPIUM/ALBUTEROL 0.5-3(2.5)MG/3ML NEB INH SCH ×3 (00:03→08:10)
[2017-03-09] MEDS: DIPHENHYDRAMINE 50MG/ML VIAL IV PRN ×6 (00:06→20:48)
[2017-03-09] MEDS: ENOXAPARIN 40MG/0.4ML SYR SUBCUT SCH ×2 (00:08→12:27)
[2017-03-09] MEDS: MORPHINE SULFATE 4 MG/ML CPJ (NOT FOR IM USE) IV PRN ×6 (00:08→20:50)
[2017-03-09] MEDS: HYDROCODONE/ACETAMINOPHEN 5/325MG TABLET PO PRN ×2 (00:10→04:15)
[2017-03-09] MEDS: LEVOFLOXACIN 500MG PREMIX 100 ML IV SCH (04:11)
[2017-03-09] MEDS: CLONIDINE 0.1MG TABLET PO PRN (04:13)
[2017-03-09] MEDS: METHYLPREDNISOLONE SOD SUCC 40 MG/ML VIAL IV SCH (06:32)
[2017-03-09 07:02] LABS: BASOPHILS % 0.1 % (0.0-2.0); HEMATOCRIT. 30.2 % (36.0-48.0); HEMOGLOBIN. 9.6 g/dL (12.0-16.0); LYMPHOCYTES % 7.5 % (20.0-50.0); MEAN CORPUSCULAR HEMOGLOBIN 27.1 pg (28.0-32.0); MEAN CORPUSCULAR VOLUME 84.9 fL (81.0-99.0); MEAN PLATELET VOLUME 7.6 fl (7.4-10.4); MONOCYTES % 4.7 % (2.0-8.0); NEUTROPHILS % 87.7 % (40.0-76.0); PLATELET 353 x1000/uL (130-400); RED BLOOD CELL COUNT 3.56 mill/uL (4.2-5.4); RED CELL DISTRIBUTION WIDTH 19.6 % (11.6-14.6)
[2017-03-09] MEDS: BLOOD SUGAR DIAGNOSTIC STRIP TEST SCH ×4 (07:38→20:53)
[2017-03-09 07:48] LABS: CARBON DIOXIDE 28 mEq/L (21-32); CHLORIDE 98 mEq/L (98-107)
[2017-03-09] MEDS: FAMOTIDINE 20MG TABLET PO SCH ×2 (08:35→20:48)
[2017-03-09] MEDS: BACLOFEN 10MG TABLET PO SCH ×3 (08:35→16:28)
[2017-03-09] MEDS: CITALOPRAM HYDROBROMIDE 10MG TABLET PO SCH (08:36)
[2017-03-09] MEDS: METFORMIN HCL 500MG TABLET PO SCH ×2 (08:36→18:01)
[2017-03-09] MEDS: ASPIRIN 81MG EC TABLET PO SCH (08:40)
[2017-03-09] MEDS: GABAPENTIN 300MG CAPSULE PO SCH ×3 (08:40→16:28)
[2017-03-09] MEDS: GUAIFENESIN 600MG ER TABLET PO SCH ×2 (08:41→20:48)
[2017-03-09] MEDS: AMLODIPINE 2.5MG TABLET PO SCH (08:44)
[2017-03-09] MEDS: BENAZEPRIL 20MG TABLET PO SCH ×2 (08:44→20:50)
[2017-03-09] MEDS: HYDRALAZINE HCL 25MG TABLET PO SCH ×2 (08:44→20:50)
[2017-03-09] MEDS: INSULIN LISPRO 100 UNITS/ML SUBCUT SCH ×4 (08:45→20:56)
[2017-03-09] MEDS ORDERED: AZITHROMYCIN 500 MG TABLET PO SCH (13:16)
[2017-03-09] MEDS ORDERED: IPRATROPIUM/ALBUTEROL 0.5-3(2.5)MG/3ML NEB HHN PRN (14:15)
[2017-03-09] MEDS ORDERED: FUROSEMIDE 40MG/4ML VIAL IVP NR (14:30)
[2017-03-09] MEDS: ALPRAZOLAM 0.5 MG TABLET PO SCH ×2 (14:43→21:00)
[2017-03-09] MEDS: LEVOFLOXACIN 500MG TABLET PO SCH (14:43)
[2017-03-09] MEDS: PREDNISONE 20MG TABLET PO SCH (14:43)
[2017-03-09] MEDS: IPRATROPIUM/ALBUTEROL 0.5-3(2.5)MG/3ML NEB HHN SCH ×2 (16:50→20:48)
[2017-03-09] MEDS: BUDESONIDE 0.5MG/2ML NEB HHN SCH (20:48)
[2017-03-10] VITALS (7 sets, daily range): BP systolic 150–161; BP diastolic 65–107
[2017-03-10] MEDS: IPRATROPIUM/ALBUTEROL 0.5-3(2.5)MG/3ML NEB HHN SCH ×4 (00:46→12:44)
[2017-03-10] MEDS: ENOXAPARIN 40MG/0.4ML SYR SUBCUT SCH ×2 (01:19→12:53)
[2017-03-10] MEDS: DIPHENHYDRAMINE 50MG/ML VIAL IV PRN ×4 (01:21→13:31)
[2017-03-10] MEDS: MORPHINE SULFATE 4 MG/ML CPJ (NOT FOR IM USE) IV PRN ×4 (01:22→13:30)
[2017-03-10] MEDS: ALPRAZOLAM 0.5 MG TABLET PO SCH ×2 (05:18→12:45)
[2017-03-10 06:59] LABS: BASOPHILS % 0.3 % (0.0-2.0); EOSINOPHILS % 0.1 % (0.0-5.0); HEMATOCRIT. 33.4 % (36.0-48.0); HEMOGLOBIN. 10.7 g/dL (12.0-16.0); LYMPHOCYTES % 18.8 % (20.0-50.0); MEAN CORPUSCULAR HEMOGLOBIN 27.1 pg (28.0-32.0); MEAN CORPUSCULAR VOLUME 84.9 fL (81.0-99.0); MEAN PLATELET VOLUME 7.7 fl (7.4-10.4); MONOCYTES % 8.5 % (2.0-8.0); NEUTROPHILS % 72.3 % (40.0-76.0); PLATELET 371 x1000/uL (130-400); RED BLOOD CELL COUNT 3.94 mill/uL (4.2-5.4); RED CELL DISTRIBUTION WIDTH 19.9 % (11.6-14.6)
[2017-03-10] MEDS: BLOOD SUGAR DIAGNOSTIC STRIP TEST SCH ×2 (07:57→12:50)
[2017-03-10] MEDS: BUDESONIDE 0.5MG/2ML NEB HHN SCH (08:19)
[2017-03-10 08:20] LABS: CARBON DIOXIDE 33 mEq/L (21-32); CHLORIDE 95 mEq/L (98-107)
[2017-03-10] MEDS: GABAPENTIN 300MG CAPSULE PO SCH ×2 (08:53→12:44)
[2017-03-10] MEDS: PREDNISONE 20MG TABLET PO SCH (08:53)
[2017-03-10] MEDS: ASPIRIN 81MG EC TABLET PO SCH (08:53)
[2017-03-10] MEDS: FAMOTIDINE 20MG TABLET PO SCH (08:53)
[2017-03-10] MEDS: METFORMIN HCL 500MG TABLET PO SCH (08:53)
[2017-03-10] MEDS: AMLODIPINE 2.5MG TABLET PO SCH (08:53)
[2017-03-10] MEDS: HYDRALAZINE HCL 25MG TABLET PO SCH (08:54)
[2017-03-10] MEDS: BENAZEPRIL 20MG TABLET PO SCH (08:54)
[2017-03-10] MEDS: GUAIFENESIN 600MG ER TABLET PO SCH (08:54)
[2017-03-10] MEDS: INSULIN LISPRO 100 UNITS/ML SUBCUT SCH ×2 (08:57→12:49)
[2017-03-10] MEDS: HYDROCODONE/ACETAMINOPHEN 5/325MG TABLET PO PRN ×2 (08:59→12:45)
[2017-03-10] MEDS ORDERED: FLUOXETINE HCL 10 MG CAPSULE PO SCH (09:00)
[2017-03-10] MEDS ORDERED: FUROSEMIDE 40MG/4ML VIAL IVP SCH (09:00)
[2017-03-10] MEDS: BACLOFEN 10MG TABLET PO SCH ×2 (09:32→12:45)
[2017-03-10] MEDS: CITALOPRAM HYDROBROMIDE 10MG TABLET PO SCH (09:32)
[2017-03-10] MEDS: LEVOFLOXACIN 500MG TABLET PO SCH (11:44)
[2017-03-10] MEDS: GUAIFENESIN-DM 200MG-20MG/10ML UDC PO PRN (11:56)
[2017-03-10] MEDS ORDERED: GUAI600T44 PO (12:36)
[2017-03-10] MEDS ORDERED: BENA20TA3 PO (12:36)
[2017-03-10] MEDS ORDERED: HYDR-4134 PO (12:36)
[2017-03-10] MEDS ORDERED: P20 PO (12:36)
[2017-05-11] MEDS ORDERED: D-ME473S8 PO (13:14)
[2017-05-11] MEDS ORDERED: HYDR-4001 PO (13:14)
[2017-05-11] MEDS ORDERED: LORA-250 PO (13:14)
== END 2017-03-10 17:10 | disposition home or self-care (01) | DRG 133 ==
LOC: ER 03:33 → ENRESERV 08:06 → 5EST 09:15
PROVIDERS: ADMIT Internal Medicine; ATTEND Internal Medicine
PROC: 5A09457 Assistance with Respiratory Ventilation, 24-96 Consecutive Hours, Continuous Positive Airway Pressure (ICD-10-PCS; principal; 2017-03-07)
DX: J96.00 Acute respiratory failure, unspecified whether with hypoxia or hypercapnia (principal); I50.33 Acute on chronic diastolic (congestive) heart failure; R65.10 Systemic inflammatory response syndrome (SIRS) of non-infectious origin without acute organ dysfunction; J44.0 Chronic obstructive pulmonary disease with (acute) lower respiratory infection; E11.65 Type 2 diabetes mellitus with hyperglycemia; Z68.43 Body mass index [BMI] 50.0-59.9, adult; I11.0 Hypertensive heart disease with heart failure; Z79.82 Long term (current) use of aspirin; D64.9 Anemia, unspecified; G47.33 Obstructive sleep apnea (adult) (pediatric); E66.01 Morbid (severe) obesity due to excess calories; F41.9 Anxiety disorder, unspecified; J20.9 Acute bronchitis, unspecified; T38.0X5A Adverse effect of glucocorticoids and synthetic analogues, initial encounter; Z90.710 Acquired absence of both cervix and uterus; Y92.89 Other specified places as the place of occurrence of the external cause; Z88.1 Allergy status to other antibiotic agents; Z91.013 Allergy to seafood; Z88.8 Allergy status to other drugs, medicaments and biological substances; Z79.51 Long term (current) use of inhaled steroids; Z79.899 Other long term (current) drug therapy; Z90.49 Acquired absence of other specified parts of digestive tract; Z72.89 Other problems related to lifestyle; Z82.49 Family history of ischemic heart disease and other diseases of the circulatory system; Z71.41 Alcohol abuse counseling and surveillance of alcoholic
CPT/HCPCS: 36415; 36600; 71010; 80048; 80053; 80061; 82375; 82805; 82962; 83605; 83690; 83735; 83880; 84484; 85025; 85610; 85730; 87040; 93005; 94640; 94660; 96365; 96366; 96367; 96375; 97162; 99285; A6261; G0482; J1200; J1650; J1815; J1940; J1956; J2270; J2405; J2920; J2930; J3475; J7030; J7050; J7512; J7611; J7620; J7626

== ENCOUNTER 2017-06-13 16:19 | Emergency (ER) | payer MEDICAID ==
[~2017-06-13] VITALS: Ht 170.2 cm; Wt 110.0 kg
[~2017-06-13 16:19] MED LIST changes: +AZIT500T2 PO; +BENA20TA3 PO; -BENA40TA66 PO; +D-ME473S8 PO; +GUAI600T44 PO; +HYDR-4001 PO; +HYDR-4134 PO; +LORA-250 PO; -METH4TAB17 PO; -MONT4TAB9 PO; +QUET200T PO; +SERT20OR6 PO
[2017-06-13 16:23] VITALS: BP_SYST 1
== END 2017-06-13 19:00 | disposition left against medical advice (07) ==
LOC: ER 16:39
DX: R06.02 Shortness of breath (principal); Z53.21 Procedure and treatment not carried out due to patient leaving prior to being seen by health care provider

== ENCOUNTER 2017-06-27 00:02 | Inpatient (IN) | payer MEDICAID ==
[~2017-06-27] VITALS: Ht 160 cm; Wt 140.6 kg
[2017-06-27] MEDS ORDERED: ALBUTEROL (0.083%) 2.5MG/3ML NEB HHN STA (00:28)
[2017-06-27] MEDS ORDERED: METHYLPREDNISOLONE SOD SUCC 125 MG/2 ML VIAL IV STA (00:28)
[2017-06-27] MEDS ORDERED: IBUPROFEN 600MG TABLET PO ONE (01:00)
[2017-06-27 01:45] LABS: BASOPHILS % 0.6 % (0.0-2.0); EOSINOPHILS % 2.9 % (0.0-5.0); HEMATOCRIT. 33.9 % (36.0-48.0); HEMOGLOBIN. 10.4 g/dL (12.0-16.0); LYMPHOCYTES % 66.1 % (20.0-50.0); MEAN CORPUSCULAR HEMOGLOBIN 24.6 pg (28.0-32.0); MEAN CORPUSCULAR VOLUME 80.1 fL (81.0-99.0); MEAN PLATELET VOLUME 7.6 fl (7.4-10.4); MONOCYTES % 5.9 % (2.0-8.0); NEUTROPHILS % 24.5 % (40.0-76.0); PLATELET 531 x1000/uL (130-400); RED BLOOD CELL COUNT 4.23 mill/uL (4.2-5.4); RED CELL DISTRIBUTION WIDTH 22.6 % (11.6-14.6)
[2017-06-27 01:49] LABS: PROTHROMBIN TIME 10.7 sec (9.4-11.6)
[2017-06-27 01:58] LABS: CARBON DIOXIDE 17 mEq/L (21-32); CHLORIDE 103 mEq/L (98-107); TROPONIN I <0.01 ng/mL ng/mL (0.00-0.04)
[2017-06-27] MEDS ORDERED: LEVOFLOXACIN 500MG PREMIX 100 ML IV SCH (08:45)
[2017-06-27] MEDS ORDERED: IPRATROPIUM/ALBUTEROL 0.5-3(2.5)MG/3ML NEB HHN PRN (08:45)
[2017-06-27] MEDS ORDERED: IPRATROPIUM/ALBUTEROL 0.5-3(2.5)MG/3ML NEB HHN SCH (08:45)
[2017-06-27] MEDS ORDERED: IPRATROPIUM/ALBUTEROL 0.5-3(2.5)MG/3ML NEB ONE (09:10)
[2017-06-27] MEDS: MORPHINE SULFATE 4 MG/ML CPJ (NOT FOR IM USE) IV PRN ×4 (09:26→22:45)
[2017-06-27] MEDS ORDERED: DIPHENHYDRAMINE 50MG/ML VIAL IV ONE (13:30)
[2017-06-27 14:52] VITALS: BP 133/109
[2017-06-27 16:44] VITALS: BP 153/108
[2017-06-27] MEDS ORDERED: DEXTROSE 50% WATER 50ML SYRINGE IV PRN (17:45)
[2017-06-27] MEDS: METHYLPREDNISOLONE SOD SUCC 40 MG/ML VIAL IV SCH (18:00)
[2017-06-27] MEDS ORDERED: CLONIDINE 0.1MG TABLET PO PRN (18:30)
[2017-06-27] MEDS ORDERED: DIPHENHYDRAMINE 50MG/ML VIAL IV PRN (18:30)
[2017-06-27 20:00] VITALS: BP 146/76
[2017-06-27] MEDS: BENAZEPRIL 20MG TABLET PO SCH (20:10)
[2017-06-27] MEDS: AMLODIPINE 10MG TABLET PO SCH (20:11)
[2017-06-27] MEDS: BLOOD SUGAR DIAGNOSTIC STRIP TEST SCH (20:42)
[2017-06-27] MEDS: BUDESONIDE 0.5MG/2ML NEB HHN SCH (20:47)
[2017-06-27] MEDS: INSULIN LISPRO 100 UNITS/ML SUBCUT SCH (20:48)
[2017-06-27] MEDS ORDERED: BUDESONIDE 0.5MG/2ML NEB ONE (21:01)
[2017-06-27] MEDS: GABAPENTIN 300MG CAPSULE PO SCH (22:44)
[2017-06-27] MEDS: LORAZEPAM 1MG TABLET PO PRN (22:44)
[2017-06-27] MEDS: DIPHENHYDRAMINE 50MG/ML VIAL IV PRN (23:13)
[2017-06-28] VITALS (7 sets, daily range): BP systolic 113–134; BP diastolic 58–84
[2017-06-28] MEDS: IPRATROPIUM/ALBUTEROL 0.5-3(2.5)MG/3ML NEB HHN SCH ×4 (01:36→19:54)
[2017-06-28] MEDS: METHYLPREDNISOLONE SOD SUCC 40 MG/ML VIAL IV SCH ×3 (02:00→18:00)
[2017-06-28] MEDS: MORPHINE SULFATE 4 MG/ML CPJ (NOT FOR IM USE) IV PRN ×5 (03:13→23:56)
[2017-06-28] MEDS: DIPHENHYDRAMINE 50MG/ML VIAL IV PRN ×3 (06:04→20:48)
[2017-06-28] MEDS: INSULIN LISPRO 100 UNITS/ML SUBCUT SCH ×4 (07:40→21:35)
[2017-06-28] MEDS: BLOOD SUGAR DIAGNOSTIC STRIP TEST SCH ×4 (07:52→21:02)
[2017-06-28] MEDS: BUDESONIDE 0.5MG/2ML NEB HHN SCH ×2 (08:43→19:54)
[2017-06-28] MEDS: AMLODIPINE 10MG TABLET PO SCH (08:57)
[2017-06-28] MEDS: GABAPENTIN 300MG CAPSULE PO SCH (08:57)
[2017-06-28] MEDS: BENAZEPRIL 20MG TABLET PO SCH (09:03)
[2017-06-28] MEDS ORDERED: LEVOFLOXACIN 500MG PREMIX 100 ML IV SCH (10:00)
[2017-06-28] MEDS: LORAZEPAM 1MG TABLET PO PRN ×3 (10:47→23:15)
[2017-06-28] MEDS: LEVOFLOXACIN 500MG TABLET PO SCH (12:16)
[2017-06-28] MEDS: NYSTATIN POWDER 15GM TOP SCH ×2 (14:30→17:00)
[2017-06-28] MEDS ORDERED: GUAIFENESIN 200MG/10ML SUGAR FREE UDC PO PRN (23:30)
[2017-06-29] VITALS: BP 118/75
[2017-06-29] MEDS: METHYLPREDNISOLONE SOD SUCC 40 MG/ML VIAL IV SCH ×2 (00:58→10:00)
[2017-06-29] MEDS: IPRATROPIUM/ALBUTEROL 0.5-3(2.5)MG/3ML NEB HHN SCH ×2 (01:51→09:12)
[2017-06-29 04:00] VITALS: BP 113/74
[2017-06-29] MEDS: MORPHINE SULFATE 4 MG/ML CPJ (NOT FOR IM USE) IV PRN ×2 (04:22→08:51)
[2017-06-29] MEDS: DIPHENHYDRAMINE 50MG/ML VIAL IV PRN ×2 (05:03→11:33)
[2017-06-29] MEDS: LORAZEPAM 1MG TABLET PO PRN (06:33)
[2017-06-29] MEDS: INSULIN LISPRO 100 UNITS/ML SUBCUT SCH ×2 (07:05→12:40)
[2017-06-29] MEDS: BLOOD SUGAR DIAGNOSTIC STRIP TEST SCH ×2 (07:05→11:22)
[2017-06-29 08:00] VITALS: BP 132/86
[2017-06-29] MEDS: BENAZEPRIL 20MG TABLET PO SCH (08:45)
[2017-06-29] MEDS: GABAPENTIN 300MG CAPSULE PO SCH (08:45)
[2017-06-29] MEDS: AMLODIPINE 10MG TABLET PO SCH (08:45)
[2017-06-29] MEDS: NYSTATIN POWDER 15GM TOP SCH (08:46)
[2017-06-29] MEDS: LEVOFLOXACIN 500MG TABLET PO SCH (10:19)
[2017-06-29 12:27] LABS: BG BASE EXCESS 4.4 mmol/L (-2.0-2.0); BG CARBOXYHEMOGLOBIN 0.4 % (0.5-1.5); BG FRACTION INSPIRED OXYGEN 21; BG HCO3 ACT 28.8 mmol/L (22.0-26.0); BG METHEMOGLOBIN 0.3 % (0.0-1.5); BG OXYHEMOGLOBIN 94.3 % (94.0-97.0); BG PCO2 42.4 mmHg (35.0-45.0); BG PO2 75.9 mmHg (75.0-100.0); BG SAMPLE SITE RIGHT RADIAL; BG TOTAL HEMOGLOBIN 11.1 g/dL (12.0-18.0); BG VENT MODE ROOM AIR
[2017-06-29 14:11] VITALS: BP 135/89
== END 2017-06-29 14:38 | disposition home or self-care (01) | DRG 140 ==
LOC: ER 00:15 → 8WST 03:00 → ENRESERV 12:55
PROVIDERS: ADMIT Internal Medicine; ATTEND Internal Medicine
PROC: 5A09357 Assistance with Respiratory Ventilation, Less than 24 Consecutive Hours, Continuous Positive Airway Pressure (ICD-10-PCS; principal; 2017-06-27)
PROC: 5A09357 Assistance with Respiratory Ventilation, Less than 24 Consecutive Hours, Continuous Positive Airway Pressure (ICD-10-PCS; 2017-06-28)
PROC: 5A09357 Assistance with Respiratory Ventilation, Less than 24 Consecutive Hours, Continuous Positive Airway Pressure (ICD-10-PCS; 2017-06-29)
DX: J44.0 Chronic obstructive pulmonary disease with (acute) lower respiratory infection (principal); J96.00 Acute respiratory failure, unspecified whether with hypoxia or hypercapnia; I11.0 Hypertensive heart disease with heart failure; I50.30 Unspecified diastolic (congestive) heart failure; Z99.81 Dependence on supplemental oxygen; E11.9 Type 2 diabetes mellitus without complications; E66.01 Morbid (severe) obesity due to excess calories; G47.33 Obstructive sleep apnea (adult) (pediatric); J44.1 Chronic obstructive pulmonary disease with (acute) exacerbation; J20.9 Acute bronchitis, unspecified; M17.0 Bilateral primary osteoarthritis of knee; F41.9 Anxiety disorder, unspecified; Z90.49 Acquired absence of other specified parts of digestive tract; Z98.891 History of uterine scar from previous surgery; Z88.8 Allergy status to other drugs, medicaments and biological substances; Z79.899 Other long term (current) drug therapy; Z79.82 Long term (current) use of aspirin; Z68.43 Body mass index [BMI] 50.0-59.9, adult
CPT/HCPCS: 36415; 36600; 71010; 71045; 80053; 82375; 82805; 82962; 83880; 84484; 85025; 85610; 87804; 93005; 94640; 94660; 96365; 96375; 99285; A6261; C1893; J1200; J1815; J1956; J2270; J2920; J2930; J7611; J7620; J7626

== ENCOUNTER 2017-07-22 03:12 | Emergency (ER) | payer MEDICAID ==
[~2017-07-22] VITALS: Ht 162.6 cm; Wt 141.0 kg
[~2017-07-22 03:12] MED LIST changes: -AZIT500T2 PO
[2017-07-22] MEDS ORDERED: ALBUTEROL (0.083%) 2.5MG/3ML NEB HHN STA (03:38)
[2017-07-22] MEDS ORDERED: METHYLPREDNISOLONE SOD SUCC 125 MG/2 ML VIAL IV STA (03:38)
[2017-07-22] MEDS ORDERED: IPRATROPIUM BROMIDE (0.02%) 0.5MG/2.5ML NEB HHN STA (03:38)
[2017-07-22] MEDS ORDERED: MAGNESIUM 2 G PREMIX 50 ML IV ONE (03:45)
[2017-07-22] MEDS ORDERED: FUROSEMIDE 40MG/4ML VIAL IV ONE (05:45)
[2017-07-22] MEDS ORDERED: KETOROLAC 30MG/ML VIAL IV ONE (05:45)
[2017-07-22 06:12] LABS: HEMATOCRIT. 32.1 % (36.0-48.0); MEAN CORPUSCULAR HEMOGLOBIN 24.2 pg (28.0-32.0); MEAN CORPUSCULAR VOLUME 77.5 fL (81.0-99.0); MEAN PLATELET VOLUME 7.5 fl (7.4-10.4); PLATELET 474 x1000/uL (130-400); RED BLOOD CELL COUNT 4.14 mill/uL (4.2-5.4); RED CELL DISTRIBUTION WIDTH 23.3 % (11.6-14.6)
[2017-07-22 06:13] LABS: CHLORIDE 106 mEq/L (98-107)
[2017-07-22 06:15] LABS: PROTHROMBIN TIME 10.5 sec (9.4-11.6)
[2017-07-22 06:24] LABS: CARBON DIOXIDE 23 mEq/L (21-32)
[2017-07-22 07:50] VITALS: BP 155/68
[2017-07-22 09:00] LABS: PLATELET ESTIMATE INCREASED
== END 2017-07-22 08:47 | disposition left against medical advice (07) ==
LOC: ER 03:12 → CANBEDREQ 16:05
DX: R06.03 Acute respiratory distress (principal); I50.9 Heart failure, unspecified; I11.0 Hypertensive heart disease with heart failure; E11.9 Type 2 diabetes mellitus without complications; J44.9 Chronic obstructive pulmonary disease, unspecified; Z88.1 Allergy status to other antibiotic agents; Z79.82 Long term (current) use of aspirin
CPT/HCPCS: 36415; 71045; 80053; 83880; 85025; 85610; 93005; 94644; 96361; 96374; 96375; 99285; J1885; J1940; J2930; J3475; J7611; Z7610

== ENCOUNTER 2017-07-31 03:37 | Inpatient (IN) | payer MEDICAID ==
[~2017-07-31] VITALS: Ht 160 cm; Wt 154.7 kg
[~2017-07-31 03:37] MED LIST changes: +BENA20TA10 PO; -BENA20TA3 PO; +METF-416 PO; -METF10002 PO
[2017-07-31] MEDS ORDERED: METHYLPREDNISOLONE SOD SUCC 125 MG/2 ML VIAL IV STA (03:49)
[2017-07-31] MEDS ORDERED: IPRATROPIUM BROMIDE (0.02%) 0.5MG/2.5ML NEB HHN STA (03:49)
[2017-07-31] MEDS ORDERED: ALBUTEROL (0.083%) 2.5MG/3ML NEB HHN STA (03:49)
[2017-07-31] MEDS ORDERED: ALBUTEROL (0.5%) 2.5MG/0.5ML NEB HHN ONE (04:00)
[2017-07-31 04:52] LABS: BASOPHILS % 0.8 % (0.0-2.0); EOSINOPHILS % 5.6 % (0.0-5.0); HEMATOCRIT. 31.2 % (36.0-48.0); HEMOGLOBIN. 9.8 g/dL (12.0-16.0); LYMPHOCYTES % 37.8 % (20.0-50.0); MEAN CORPUSCULAR HEMOGLOBIN 24.1 pg (28.0-32.0); MEAN CORPUSCULAR VOLUME 76.7 fL (81.0-99.0); MEAN PLATELET VOLUME 7.5 fl (7.4-10.4); MONOCYTES % 10.7 % (2.0-8.0); NEUTROPHILS % 45.1 % (40.0-76.0); PLATELET 416 x1000/uL (130-400); RED BLOOD CELL COUNT 4.07 mill/uL (4.2-5.4); RED CELL DISTRIBUTION WIDTH 23.1 % (11.6-14.6)
[2017-07-31 05:03] LABS: CHLORIDE 103 mEq/L (98-107)
[2017-07-31 05:07] LABS: PROTHROMBIN TIME 10.7 sec (9.4-11.6)
[2017-07-31] MEDS ORDERED: KETOROLAC 30MG/ML VIAL IV ONE (05:45)
[2017-07-31] MEDS ORDERED: ACETAMINOPHEN 325MG TABLET PO PRN (06:15)
[2017-07-31] MEDS ORDERED: MAGNESIUM/ALUMINUM HYDROXIDE/SIMETHICONE 30ML UDC PO PRN (06:15)
[2017-07-31] MEDS ORDERED: IPRATROPIUM/ALBUTEROL 0.5-3(2.5)MG/3ML NEB INH PRN (06:15)
[2017-07-31] MEDS ORDERED: ENOXAPARIN 40MG/0.4ML SYR SUBCUT SCH (06:15)
[2017-07-31] MEDS ORDERED: CLONIDINE 0.1MG TABLET PO PRN (06:15)
[2017-07-31] MEDS ORDERED: DOCUSATE SODIUM 100MG CAPSULE PO PRN (06:15)
[2017-07-31] MEDS ORDERED: NA PHOS,M-B/NA PHOS,DI-BA ENEMA 118ML PR PRN (06:15)
[2017-07-31] MEDS ORDERED: ONDANSETRON HCL 4MG/2ML INJ IV PRN (06:15)
[2017-07-31] MEDS ORDERED: HYDROCODONE/ACETAMINOPHEN 10/325MG TABLET PO PRN (06:15)
[2017-07-31 08:00] VITALS: BP 140/85
[2017-07-31 08:29] LABS: CHLORIDE 105 mEq/L (98-107)
[2017-07-31] MEDS ORDERED: DEXTROSE 50% WATER 50ML SYRINGE IV PRN (09:00)
[2017-07-31] MEDS: INSULIN LISPRO 100 UNITS/ML SUBCUT SCH ×4 (09:00→20:14)
[2017-07-31] MEDS: BLOOD SUGAR DIAGNOSTIC STRIP TEST SCH ×4 (09:23→20:11)
[2017-07-31] MEDS: ASPIRIN 81MG EC TABLET PO SCH (09:56)
[2017-07-31] MEDS: METHYLPREDNISOLONE SOD SUCC 125 MG/2 ML VIAL IV SCH ×2 (09:56→15:00)
[2017-07-31] MEDS: ENOXAPARIN 30MG/0.3ML SYR SUBCUT SCH ×2 (09:57→20:16)
[2017-07-31] MEDS: MORPHINE SULFATE 2 MG/ML CPJ (NOT FOR IM USE) IV PRN ×3 (10:08→18:28)
[2017-07-31] MEDS: BUDESONIDE 0.5MG/2ML NEB HHN SCH ×2 (11:30→21:24)
[2017-07-31] MEDS: IPRATROPIUM/ALBUTEROL 0.5-3(2.5)MG/3ML NEB HHN SCH ×3 (11:30→21:25)
[2017-07-31 11:58] VITALS: BP 125/83
[2017-07-31] MEDS: GUAIFENESIN-DM 200MG-20MG/10ML UDC PO PRN (12:17)
[2017-07-31] MEDS: LEVOFLOXACIN 500MG PREMIX 100 ML IV SCH (12:17)
[2017-07-31] MEDS: CITALOPRAM HYDROBROMIDE 10MG TABLET PO SCH (13:29)
[2017-07-31] MEDS: GABAPENTIN 300MG CAPSULE PO SCH ×2 (13:29→18:27)
[2017-07-31] MEDS: AMLODIPINE 2.5MG TABLET PO SCH (13:29)
[2017-07-31 16:00] VITALS: BP 153/94
[2017-07-31] MEDS: BACLOFEN 10MG TABLET PO SCH ×2 (16:02→17:00)
[2017-07-31 16:31] LABS: CREATINE KINASE 86 IU/L (26-192); CREATINE KINASE MB FRACTION 0.9 ng/mL (0.5-3.6)
[2017-07-31 16:45] VITALS: BP 125/83
[2017-07-31] MEDS ORDERED: METFORMIN HCL PO SCH (17:00)
[2017-07-31] MEDS: METFORMIN HCL 500MG TABLET PO SCH (18:27)
[2017-07-31] MEDS: SERTRALINE HCL 50MG TABLET PO SCH (18:27)
[2017-07-31] MEDS: GUAIFENESIN 200MG/10ML SUGAR FREE UDC PO PRN (18:28)
[2017-07-31] MEDS ORDERED: LORAZEPAM 1MG TABLET PO PRN (19:00)
[2017-07-31 20:00] VITALS: BP 147/97
[2017-07-31] MEDS: DIPHENHYDRAMINE 50MG/ML VIAL IV PRN (20:16)
[2017-07-31] MEDS: LORAZEPAM 2MG/ML CPJ IV PRN (21:43)
[2017-08-01] VITALS: BP 148/88
[2017-08-01 00:10] LABS: CREATINE KINASE 65 IU/L (26-192); CREATINE KINASE MB FRACTION 0.8 ng/mL (0.5-3.6)
[2017-08-01] MEDS: MORPHINE SULFATE 2 MG/ML CPJ (NOT FOR IM USE) IV PRN ×6 (00:36→21:35)
[2017-08-01] MEDS: IPRATROPIUM/ALBUTEROL 0.5-3(2.5)MG/3ML NEB HHN SCH ×6 (00:54→21:23)
[2017-08-01 04:00] VITALS: BP 149/81
[2017-08-01] MEDS: BLOOD SUGAR DIAGNOSTIC STRIP TEST SCH ×4 (06:17→21:00)
[2017-08-01] MEDS: GUAIFENESIN 200MG/10ML SUGAR FREE UDC PO PRN (06:22)
[2017-08-01] MEDS: INSULIN LISPRO 100 UNITS/ML SUBCUT SCH ×4 (06:23→21:00)
[2017-08-01 07:34] VITALS: BP 144/91
[2017-08-01] MEDS: SERTRALINE HCL 50MG TABLET PO SCH (08:27)
[2017-08-01] MEDS: METFORMIN HCL 500MG TABLET PO SCH ×2 (08:27→16:47)
[2017-08-01] MEDS: ASPIRIN 81MG EC TABLET PO SCH (08:27)
[2017-08-01] MEDS: GABAPENTIN 300MG CAPSULE PO SCH ×3 (08:27→16:47)
[2017-08-01] MEDS: CITALOPRAM HYDROBROMIDE 10MG TABLET PO SCH (08:27)
[2017-08-01] MEDS: AMLODIPINE 2.5MG TABLET PO SCH (08:28)
[2017-08-01] MEDS: BACLOFEN 10MG TABLET PO SCH ×3 (08:28→16:47)
[2017-08-01] MEDS: ENOXAPARIN 30MG/0.3ML SYR SUBCUT SCH ×2 (08:42→21:00)
[2017-08-01 08:55] LABS: BASOPHILS % 0.6 % (0.0-2.0); EOSINOPHILS % 2.7 % (0.0-5.0); HEMATOCRIT. 28.7 % (36.0-48.0); HEMOGLOBIN. 9.2 g/dL (12.0-16.0); LYMPHOCYTES % 36.4 % (20.0-50.0); MEAN CORPUSCULAR VOLUME 78.1 fL (81.0-99.0); MEAN PLATELET VOLUME 7.6 fl (7.4-10.4); MONOCYTES % 13.3 % (2.0-8.0); PLATELET 391 x1000/uL (130-400); RED BLOOD CELL COUNT 3.68 mill/uL (4.2-5.4); RED CELL DISTRIBUTION WIDTH 23.2 % (11.6-14.6)
[2017-08-01] MEDS ORDERED: SERTRALINE HCL 50 MG PO SCH (09:00)
[2017-08-01] MEDS: BUDESONIDE 0.5MG/2ML NEB HHN SCH ×2 (09:19→21:22)
[2017-08-01 09:30] LABS: CHLORIDE 102 mEq/L (98-107); CREATINE KINASE 56 IU/L (26-192); HDL CHOLESTEROL 84 mg/dL (40-59); LDL CHOLESTEROL 76 mg/dL (5-100)
[2017-08-01] MEDS: DIPHENHYDRAMINE 50MG/ML VIAL IV PRN ×2 (09:31→18:53)
[2017-08-01] MEDS: LEVOFLOXACIN 500MG PREMIX 100 ML IV SCH (09:50)
[2017-08-01 11:21] LABS: PLATELET ESTIMATE NORMAL
[2017-08-01] MEDS: LORAZEPAM 2MG/ML CPJ IV PRN ×2 (13:58→21:26)
[2017-08-01 16:17] VITALS: BP 152/94
[2017-08-01 20:00] VITALS: BP 153/89
[2017-08-02] VITALS: BP 148/66
[2017-08-02] MEDS: IPRATROPIUM/ALBUTEROL 0.5-3(2.5)MG/3ML NEB HHN SCH ×6 (00:54→20:07)
[2017-08-02] MEDS: DIPHENHYDRAMINE 50MG/ML VIAL IV PRN ×2 (01:31→10:50)
[2017-08-02] MEDS: MORPHINE SULFATE 2 MG/ML CPJ (NOT FOR IM USE) IV PRN ×5 (01:32→23:26)
[2017-08-02] MEDS: GUAIFENESIN-DM 200MG-20MG/10ML UDC PO PRN (02:46)
[2017-08-02] MEDS: LORAZEPAM 2MG/ML CPJ IV PRN ×4 (03:58→23:25)
[2017-08-02 04:00] VITALS: BP 147/97
[2017-08-02] MEDS: BLOOD SUGAR DIAGNOSTIC STRIP TEST SCH ×4 (06:44→21:00)
[2017-08-02] MEDS: INSULIN LISPRO 100 UNITS/ML SUBCUT SCH ×4 (06:44→21:00)
[2017-08-02] MEDS: BUDESONIDE 0.5MG/2ML NEB HHN SCH ×2 (07:51→20:11)
[2017-08-02 08:00] VITALS: BP_SYST 160
[2017-08-02] MEDS: METFORMIN HCL 500MG TABLET PO SCH ×2 (08:18→17:36)
[2017-08-02] MEDS: SERTRALINE HCL 50MG TABLET PO SCH (08:19)
[2017-08-02] MEDS: GABAPENTIN 300MG CAPSULE PO SCH ×3 (08:19→17:36)
[2017-08-02] MEDS: ASPIRIN 81MG EC TABLET PO SCH (08:19)
[2017-08-02] MEDS: BACLOFEN 10MG TABLET PO SCH ×3 (08:19→17:36)
[2017-08-02] MEDS: CITALOPRAM HYDROBROMIDE 10MG TABLET PO SCH (08:20)
[2017-08-02] MEDS: AMLODIPINE 2.5MG TABLET PO SCH (08:22)
[2017-08-02] MEDS: ENOXAPARIN 30MG/0.3ML SYR SUBCUT SCH ×2 (08:22→21:00)
[2017-08-02] MEDS: GUAIFENESIN 200MG/10ML SUGAR FREE UDC PO PRN (10:50)
[2017-08-02 12:00] VITALS: BP 155/95
[2017-08-02] MEDS: LEVOFLOXACIN 500MG PREMIX 100 ML IV SCH (13:22)
[2017-08-02 16:00] VITALS: BP 147/71
[2017-08-02 20:00] VITALS: BP 148/84
[2017-08-03] VITALS: BP 152/100
[2017-08-03] MEDS: IPRATROPIUM/ALBUTEROL 0.5-3(2.5)MG/3ML NEB HHN SCH ×7 (00:15→23:38)
[2017-08-03 04:00] VITALS: BP 123/100
[2017-08-03] MEDS: DIPHENHYDRAMINE 50MG/ML VIAL IV PRN ×4 (04:32→23:48)
[2017-08-03] MEDS: MORPHINE SULFATE 2 MG/ML CPJ (NOT FOR IM USE) IV PRN ×4 (04:33→23:50)
[2017-08-03] MEDS ORDERED: FLUCONAZOLE 100MG TABLET PO SCH (06:15)
[2017-08-03] MEDS: INSULIN LISPRO 100 UNITS/ML SUBCUT SCH ×4 (06:31→21:00)
[2017-08-03] MEDS: BLOOD SUGAR DIAGNOSTIC STRIP TEST SCH ×4 (06:40→21:29)
[2017-08-03] MEDS: BUDESONIDE 0.5MG/2ML NEB HHN SCH ×2 (07:47→15:32)
[2017-08-03] MEDS: LORAZEPAM 2MG/ML CPJ IV PRN ×2 (07:56→19:01)
[2017-08-03 08:00] VITALS: BP 138/90
[2017-08-03] MEDS: METFORMIN HCL 500MG TABLET PO SCH ×2 (08:08→18:04)
[2017-08-03] MEDS: ASPIRIN 81MG EC TABLET PO SCH (08:52)
[2017-08-03] MEDS: BACLOFEN 10MG TABLET PO SCH ×3 (08:52→18:04)
[2017-08-03] MEDS: CITALOPRAM HYDROBROMIDE 10MG TABLET PO SCH (08:52)
[2017-08-03] MEDS: SERTRALINE HCL 50MG TABLET PO SCH (08:53)
[2017-08-03] MEDS: GABAPENTIN 300MG CAPSULE PO SCH ×3 (08:53→18:04)
[2017-08-03] MEDS: AMLODIPINE 2.5MG TABLET PO SCH (08:54)
[2017-08-03] MEDS: ENOXAPARIN 30MG/0.3ML SYR SUBCUT SCH (08:55)
[2017-08-03] MEDS: GUAIFENESIN 200MG/10ML SUGAR FREE UDC PO PRN (10:30)
[2017-08-03 12:00] VITALS: BP 136/96
[2017-08-03] MEDS: LEVOFLOXACIN 500MG PREMIX 100 ML IV SCH (13:48)
[2017-08-03 16:00] VITALS: BP 133/91
[2017-08-03] MEDS ORDERED: LORAZEPAM 1MG TABLET PO PRN (19:00)
[2017-08-03 20:00] VITALS: BP 140/68
[2017-08-03] MEDS: ENOXAPARIN 40MG/0.4ML SYR SUBCUT SCH (21:00)
[2017-08-04] VITALS: BP 147/87
[2017-08-04] MEDS: LORAZEPAM 2MG/ML CPJ IV PRN ×3 (00:20→18:45)
[2017-08-04] MEDS: IPRATROPIUM/ALBUTEROL 0.5-3(2.5)MG/3ML NEB HHN SCH ×5 (03:27→21:55)
[2017-08-04 04:00] VITALS: BP 152/66
[2017-08-04] MEDS: DIPHENHYDRAMINE 50MG/ML VIAL IV PRN ×5 (04:12→22:45)
[2017-08-04] MEDS: MORPHINE SULFATE 2 MG/ML CPJ (NOT FOR IM USE) IV PRN ×5 (04:13→21:44)
[2017-08-04] MEDS: BLOOD SUGAR DIAGNOSTIC STRIP TEST SCH ×4 (06:23→21:52)
[2017-08-04] MEDS: INSULIN LISPRO 100 UNITS/ML SUBCUT SCH ×4 (06:46→21:00)
[2017-08-04 07:08] LABS: BASOPHILS % 0.7 % (0.0-2.0); EOSINOPHILS % 6.4 % (0.0-5.0); HEMOGLOBIN. 8.8 g/dL (12.0-16.0); LYMPHOCYTES % 33.4 % (20.0-50.0); MEAN PLATELET VOLUME 7.6 fl (7.4-10.4); MONOCYTES % 7.8 % (2.0-8.0); NEUTROPHILS % 51.7 % (40.0-76.0); PLATELET 373 x1000/uL (130-400); RED BLOOD CELL COUNT 3.54 mill/uL (4.2-5.4); RED CELL DISTRIBUTION WIDTH 23.4 % (11.6-14.6)
[2017-08-04 07:25] LABS: CHLORIDE 101 mEq/L (98-107)
[2017-08-04] MEDS: BUDESONIDE 0.5MG/2ML NEB HHN SCH ×2 (07:28→21:55)
[2017-08-04] MEDS: CITALOPRAM HYDROBROMIDE 10MG TABLET PO SCH (08:31)
[2017-08-04] MEDS: SERTRALINE HCL 50MG TABLET PO SCH (08:31)
[2017-08-04] MEDS: GUAIFENESIN 200MG/10ML SUGAR FREE UDC PO PRN ×2 (08:31→21:41)
[2017-08-04] MEDS: GABAPENTIN 300MG CAPSULE PO SCH ×3 (08:31→17:08)
[2017-08-04] MEDS: METFORMIN HCL 500MG TABLET PO SCH ×2 (08:31→17:08)
[2017-08-04] MEDS: ASPIRIN 81MG EC TABLET PO SCH (08:31)
[2017-08-04] MEDS: BACLOFEN 10MG TABLET PO SCH ×3 (08:32→17:08)
[2017-08-04] MEDS: ENOXAPARIN 40MG/0.4ML SYR SUBCUT SCH ×2 (08:32→21:43)
[2017-08-04] MEDS: AMLODIPINE 2.5MG TABLET PO SCH (08:32)
[2017-08-04 12:00] VITALS: BP 122/76
[2017-08-04] MEDS: LEVOFLOXACIN 500MG PREMIX 100 ML IV SCH (12:40)
[2017-08-04 16:00] VITALS: BP_SYST 122; BP_SYST 151; BP_DIAS 69; BP_DIAS 76
[2017-08-04 20:00] VITALS: BP 116/57
[2017-08-05] VITALS: BP 140/80
[2017-08-05] MEDS: IPRATROPIUM/ALBUTEROL 0.5-3(2.5)MG/3ML NEB HHN SCH ×3 (00:53→09:11)
[2017-08-05 04:00] VITALS: BP 123/77
[2017-08-05] MEDS: MORPHINE SULFATE 2 MG/ML CPJ (NOT FOR IM USE) IV PRN (04:25)
[2017-08-05] MEDS: LORAZEPAM 2MG/ML CPJ IV PRN (05:31)
[2017-08-05] MEDS: BLOOD SUGAR DIAGNOSTIC STRIP TEST SCH (07:33)
[2017-08-05] MEDS: INSULIN LISPRO 100 UNITS/ML SUBCUT SCH (07:34)
[2017-08-05] MEDS: METFORMIN HCL 500MG TABLET PO SCH (08:19)
[2017-08-05] MEDS: SERTRALINE HCL 50MG TABLET PO SCH (08:19)
[2017-08-05] MEDS: AMLODIPINE 2.5MG TABLET PO SCH (08:19)
[2017-08-05] MEDS: GABAPENTIN 300MG CAPSULE PO SCH (08:19)
[2017-08-05] MEDS: CITALOPRAM HYDROBROMIDE 10MG TABLET PO SCH (08:19)
[2017-08-05 08:20] VITALS: BP 164/104
[2017-08-05] MEDS: BACLOFEN 10MG TABLET PO SCH (08:20)
[2017-08-05] MEDS: ENOXAPARIN 40MG/0.4ML SYR SUBCUT SCH ×2 (08:20→08:28)
[2017-08-05] MEDS: ASPIRIN 81MG EC TABLET PO SCH (08:20)
[2017-08-05] MEDS: BUDESONIDE 0.5MG/2ML NEB HHN SCH (09:10)
[2017-08-05] MEDS ORDERED: IPRATROPIUM/ALBUTEROL 0.5-3(2.5)MG/3ML NEB INH SCH (09:15)
[2017-08-05 09:50] VITALS: BP 155/97
[2017-08-05] MEDS ORDERED: LEVOFLOXACIN 500MG TABLET PO SCH (11:00)
[2018-05-14] MEDS ORDERED: LANTUSUD SUBCUT (16:40)
== END 2017-08-05 10:05 | disposition home or self-care (01) | DRG 133 ==
LOC: ER 03:37 → 8WST 05:43 → EDBEDREQ 05:48 → ENRESERV 07:16
PROVIDERS: ADMIT Internal Medicine; ATTEND Internal Medicine
PROC: 5A09357 Assistance with Respiratory Ventilation, Less than 24 Consecutive Hours, Continuous Positive Airway Pressure (ICD-10-PCS; principal; 2017-07-31)
PROC: 5A09357 Assistance with Respiratory Ventilation, Less than 24 Consecutive Hours, Continuous Positive Airway Pressure (ICD-10-PCS; 2017-07-31)
PROC: 5A09357 Assistance with Respiratory Ventilation, Less than 24 Consecutive Hours, Continuous Positive Airway Pressure (ICD-10-PCS; 2017-08-03)
PROC: 5A09357 Assistance with Respiratory Ventilation, Less than 24 Consecutive Hours, Continuous Positive Airway Pressure (ICD-10-PCS; 2017-08-04)
DX: J96.01 Acute respiratory failure with hypoxia (principal); I50.33 Acute on chronic diastolic (congestive) heart failure; R65.10 Systemic inflammatory response syndrome (SIRS) of non-infectious origin without acute organ dysfunction; E87.2 Acidosis; J44.0 Chronic obstructive pulmonary disease with (acute) lower respiratory infection; I11.0 Hypertensive heart disease with heart failure; E66.2 Morbid (severe) obesity with alveolar hypoventilation; Z99.81 Dependence on supplemental oxygen; J44.1 Chronic obstructive pulmonary disease with (acute) exacerbation; E11.9 Type 2 diabetes mellitus without complications; D64.9 Anemia, unspecified; G89.29 Other chronic pain; E78.5 Hyperlipidemia, unspecified; F41.9 Anxiety disorder, unspecified; I25.10 Atherosclerotic heart disease of native coronary artery without angina pectoris; Z79.82 Long term (current) use of aspirin; Z79.84 Long term (current) use of oral hypoglycemic drugs; Z79.899 Other long term (current) drug therapy; Z74.01 Bed confinement status; Z88.1 Allergy status to other antibiotic agents; Z79.1 Long term (current) use of non-steroidal anti-inflammatories (NSAID); Z90.49 Acquired absence of other specified parts of digestive tract; Z68.44 Body mass index [BMI] 60.0-69.9, adult; J40 Bronchitis, not specified as acute or chronic
CPT/HCPCS: 36415; 71045; 80048; 80061; 82550; 82553; 82962; 83036; 83605; 83880; 84439; 84443; 84484; 85379; 87804; 93005; 93306; 94640; 94660; 96374; 96375; 97161; 99285; C1893; J1200; J1650; J1815; J1885; J1956; J2060; J2270; J2405; J2930; J7611; J7620; J7626

== ENCOUNTER 2017-08-14 04:37 | Emergency (ER) | payer MEDICAID ==
[~2017-08-14] VITALS: Ht 170.2 cm; Wt 148.0 kg
[~2017-08-14 04:37] MED LIST changes: -BENA20TA10 PO; +BENA20TA3 PO; -METF-416 PO; +METF10002 PO
[2017-08-14 05:45] LABS: BASOPHILS % 0.4 % (0.0-2.0); HEMATOCRIT. 32.3 % (36.0-48.0); HEMOGLOBIN. 10.3 g/dL (12.0-16.0); LYMPHOCYTES % 34.4 % (20.0-50.0); MEAN CORPUSCULAR HEMOGLOBIN 25.1 pg (28.0-32.0); MEAN CORPUSCULAR VOLUME 78.5 fL (81.0-99.0); MEAN PLATELET VOLUME 7.4 fl (7.4-10.4); MONOCYTES % 6.5 % (2.0-8.0); NEUTROPHILS % 53.7 % (40.0-76.0); PLATELET 515 x1000/uL (130-400); RED BLOOD CELL COUNT 4.11 mill/uL (4.2-5.4)
[2017-08-14 06:01] LABS: CHLORIDE 104 mEq/L (98-107); TROPONIN I < 0.02 ng/mL (0.00-0.04)
[2017-08-14 06:03] LABS: PROTHROMBIN TIME 10.7 sec (9.4-11.6)
[2017-08-14] MEDS ORDERED: TRAMADOL 50MG TABLET PO ONE ×2 (06:30→18:00)
[2017-08-14] MEDS ORDERED: KETOROLAC 30MG/ML VIAL IV ONE (06:30)
[2017-08-14] MEDS ORDERED: LORAZEPAM 1MG TABLET PO SCH (06:45)
[2017-08-14] MEDS ORDERED: OXYCODONE HCL/ACETAMINOPHEN 5/325MG TABLET PO ONE (07:30)
[2017-08-14 18:21] VITALS: BP 148/72
== END 2017-08-14 18:23 | disposition home or self-care (01) ==
LOC: ER 04:48
DX: S20.211A Contusion of right front wall of thorax, initial encounter (principal); I11.0 Hypertensive heart disease with heart failure; I50.9 Heart failure, unspecified; J44.9 Chronic obstructive pulmonary disease, unspecified; E11.9 Type 2 diabetes mellitus without complications; Z88.1 Allergy status to other antibiotic agents; Z79.82 Long term (current) use of aspirin; Y04.0XXA Assault by unarmed brawl or fight, initial encounter; Y93.89 Activity, other specified; Y92.89 Other specified places as the place of occurrence of the external cause; Y99.8 Other external cause status
CPT/HCPCS: 36415; 71045; 71100; 80053; 82962; 83880; 84484; 85025; 85610; 93005; 99285; J1885; Z7610

== ENCOUNTER 2017-08-31 08:35 | Emergency (ER) | payer MEDICAID ==
[~2017-08-31] VITALS: Ht 167.6 cm; Wt 147.0 kg
[2017-08-31 09:45] VITALS: BP 139/99
[2017-08-31] MEDS ORDERED: LORAZEPAM 2MG/ML CPJ IV ONE (11:45)
[2017-08-31] MEDS ORDERED: KETOROLAC 30MG/ML VIAL IV STA (11:45)
[2017-08-31] MEDS ORDERED: KETOROLAC 15MG/ML VIAL IM ONE (13:30)
[2017-08-31] MEDS ORDERED: OXYCODONE HCL 5MG TABLET PO ONE (13:30)
[2017-08-31] MEDS ORDERED: LORAZEPAM 2MG/ML CPJ IM ONE (13:30)
[2017-08-31 14:08] LABS: BASOPHILS % 0.7 % (0.0-2.0); EOSINOPHILS % 6.6 % (0.0-5.0); HEMATOCRIT. 31.9 % (36.0-48.0); HEMOGLOBIN. 9.7 g/dL (12.0-16.0); LYMPHOCYTES % 39.8 % (20.0-50.0); MEAN CORPUSCULAR HEMOGLOBIN 23.7 pg (28.0-32.0); MEAN CORPUSCULAR VOLUME 77.8 fL (81.0-99.0); MEAN PLATELET VOLUME 7.6 fl (7.4-10.4); MONOCYTES % 7.2 % (2.0-8.0); NEUTROPHILS % 45.7 % (40.0-76.0); PLATELET 485 x1000/uL (130-400); RED BLOOD CELL COUNT 4.09 mill/uL (4.2-5.4); RED CELL DISTRIBUTION WIDTH 21.4 % (11.6-14.6)
[2017-08-31] MEDS ORDERED: OXYCODONE HCL 5MG TABLET PO SCH (14:10)
[2017-08-31 14:13] LABS: PROTHROMBIN TIME 10.6 sec (9.4-11.6)
[2017-08-31 14:17] LABS: CHLORIDE 104 mEq/L (98-107)
== END 2017-08-31 17:43 | disposition home or self-care (01) ==
LOC: ER 08:35
DX: G62.9 Polyneuropathy, unspecified (principal); M17.12 Unilateral primary osteoarthritis, left knee; E87.3 Alkalosis; D50.9 Iron deficiency anemia, unspecified; E11.9 Type 2 diabetes mellitus without complications; F41.9 Anxiety disorder, unspecified; J44.9 Chronic obstructive pulmonary disease, unspecified; I10 Essential (primary) hypertension; M19.90 Unspecified osteoarthritis, unspecified site; E66.01 Morbid (severe) obesity due to excess calories; Z88.3 Allergy status to other anti-infective agents; Z91.013 Allergy to seafood; Z91.018 Allergy to other foods; Z68.43 Body mass index [BMI] 50.0-59.9, adult; Z79.82 Long term (current) use of aspirin
CPT/HCPCS: 36415; 71045; 73562; 80053; 82962; 83735; 85025; 85610; 93971; 96372; 99285; J1885; J2060; Z7610

== ENCOUNTER 2017-11-03 08:13 | Emergency (ER) | payer MEDICAID ==
[~2017-11-03] VITALS: Ht 160 cm; Wt 150.0 kg
[2017-11-03] MEDS ORDERED: ONDANSETRON HCL 4MG/2ML VIAL IV STA (09:00)
[2017-11-03] MEDS ORDERED: MORPHINE SULFATE 4 MG/ML CPJ (NOT FOR IM USE) IV STA (09:00)
[2017-11-03] MEDS ORDERED: DIPHENHYDRAMINE 50MG/ML VIAL IV ONE (10:15)
[2017-11-03] MEDS ORDERED: TRAMADOL 50MG TABLET PO ONE (14:00)
[2017-11-03 14:27] VITALS: BP 158/99
== END 2017-11-03 14:35 | disposition home or self-care (01) ==
LOC: ER 08:19
DX: S80.12XA Contusion of left lower leg, initial encounter (principal); S93.402A Sprain of unspecified ligament of left ankle, initial encounter; J44.9 Chronic obstructive pulmonary disease, unspecified; E11.9 Type 2 diabetes mellitus without complications; E78.00 Pure hypercholesterolemia, unspecified; I10 Essential (primary) hypertension; Z79.82 Long term (current) use of aspirin; Z87.891 Personal history of nicotine dependence; W05.0XXA Fall from non-moving wheelchair, initial encounter; Y93.89 Activity, other specified; Y92.129 Unspecified place in nursing home as the place of occurrence of the external cause
CPT/HCPCS: 73590; 73610; 73630; 96374; 96375; 99284; J1200; J2270; J2405; Z7610

== ENCOUNTER 2018-01-02 02:24 | Inpatient (IN) | payer MEDICAID ==
[~2018-01-02] VITALS: Ht 160 cm; Wt 148.3 kg
[~2018-01-02 02:24] MED LIST changes: -METF10002 PO; +METF10004 PO
[2018-01-02] MEDS ORDERED: IPRATROPIUM BROMIDE (0.02%) 0.5MG/2.5ML NEB HHN STA (03:07)
[2018-01-02] MEDS ORDERED: METHYLPREDNISOLONE SOD SUCC 125 MG/2 ML VIAL IV STA (03:07)
[2018-01-02] MEDS ORDERED: ALBUTEROL (0.083%) 2.5MG/3ML NEB HHN STA (03:07)
[2018-01-02 03:28] LABS: BASOPHILS % 0.8 % (0.0-2.0); EOSINOPHILS % 3.1 % (0.0-5.0); HEMATOCRIT. 35.5 % (36.0-48.0); LYMPHOCYTES % 54.9 % (20.0-50.0); MEAN CORPUSCULAR VOLUME 77.9 fL (81.0-99.0); MEAN PLATELET VOLUME 6.9 fl (7.4-10.4); MONOCYTES % 5.1 % (2.0-8.0); NEUTROPHILS % 36.1 % (40.0-76.0); PLATELET 494 x1000/uL (130-400); RED BLOOD CELL COUNT 4.56 mill/uL (4.2-5.4); RED CELL DISTRIBUTION WIDTH 21.1 % (11.6-14.6)
[2018-01-02 03:32] LABS: CHLORIDE 110 mEq/L (98-107)
[2018-01-02] MEDS ORDERED: ACETAMINOPHEN WITH CODEINE 300/30MG TABLET PO ONE (06:15)
[2018-01-02] MEDS ORDERED: GUAIFENESIN 200MG/10ML SUGAR FREE UDC PO PRN (07:15)
[2018-01-02] MEDS ORDERED: MAGNESIUM/ALUMINUM HYDROXIDE/SIMETHICONE 30ML UDC PO PRN (07:15)
[2018-01-02] MEDS ORDERED: LORAZEPAM 0.5MG TABLET PO PRN (07:15)
[2018-01-02] MEDS ORDERED: DOCUSATE SODIUM 100MG CAPSULE PO PRN (07:15)
[2018-01-02] MEDS ORDERED: HYDROMORPHONE HCL/PF 2MG/ML CPJ IV PRN (07:15)
[2018-01-02] MEDS ORDERED: HYDROCODONE/ACETAMINOPHEN 5/325MG TABLET PO PRN (07:15)
[2018-01-02] MEDS ORDERED: ONDANSETRON HCL 4MG/2ML VIAL IV PRN (07:15)
[2018-01-02] MEDS ORDERED: ACETAMINOPHEN 325MG TABLET PO PRN (07:15)
[2018-01-02] MEDS ORDERED: CLONIDINE 0.1MG TABLET PO PRN (07:15)
[2018-01-02] MEDS ORDERED: METHYLPREDNISOLONE SOD SUCC 40 MG/ML VIAL IV NR (10:15)
[2018-01-02] MEDS ORDERED: ASPIRIN 81MG EC TABLET PO NR (10:15)
[2018-01-02] MEDS ORDERED: ENOXAPARIN 40MG/0.4ML SYR SUBCUT NR (10:15)
[2018-01-02 11:08] VITALS: BP 138/88
[2018-01-02 11:20] VITALS: BP 138/88
[2018-01-02] MEDS ORDERED: DEXTROSE 50% WATER 50ML SYRINGE IV PRN (12:30)
[2018-01-02] MEDS: BLOOD SUGAR DIAGNOSTIC STRIP TEST SCH ×3 (12:52→21:25)
[2018-01-02] MEDS: INSULIN LISPRO 100 UNITS/ML SUBCUT SCH ×3 (12:57→21:25)
[2018-01-02] MEDS: MORPHINE SULFATE 4 MG/ML CPJ (NOT FOR IM USE) IV PRN ×2 (12:59→18:32)
[2018-01-02 16:00] VITALS: BP 134/96
[2018-01-02 16:51] LABS: CREATINE KINASE 49 IU/L (26-192)
[2018-01-02 16:52] LABS: CREATINE KINASE MB FRACTION 0.6 ng/mL (0.5-3.6)
[2018-01-02] MEDS: IPRATROPIUM/ALBUTEROL 0.5-3(2.5)MG/3ML NEB INH PRN ×2 (17:05→23:46)
[2018-01-02] MEDS: METHYLPREDNISOLONE SOD SUCC 40 MG/ML VIAL IV SCH ×2 (18:00→18:30)
[2018-01-02] MEDS ORDERED: ZOLPIDEM TARTRATE 5MG TABLET PO PRN (19:00)
[2018-01-02 20:00] VITALS: BP 147/88
[2018-01-02] MEDS: ENOXAPARIN 40MG/0.4ML SYR SUBCUT SCH (21:00)
[2018-01-02] MEDS: GABAPENTIN 300MG CAPSULE PO SCH (21:25)
[2018-01-03] MEDS: MORPHINE SULFATE 4 MG/ML CPJ (NOT FOR IM USE) IV PRN ×4 (00:28→19:07)
[2018-01-03 04:00] VITALS: BP 156/90
[2018-01-03] MEDS: IPRATROPIUM/ALBUTEROL 0.5-3(2.5)MG/3ML NEB INH PRN ×2 (04:06→10:06)
[2018-01-03] MEDS: GABAPENTIN 300MG CAPSULE PO SCH ×2 (06:51→13:15)
[2018-01-03] MEDS: INSULIN LISPRO 100 UNITS/ML SUBCUT SCH ×3 (06:54→17:44)
[2018-01-03] MEDS: BLOOD SUGAR DIAGNOSTIC STRIP TEST SCH ×3 (06:54→17:08)
[2018-01-03 08:00] VITALS: BP 127/84
[2018-01-03] MEDS: ENOXAPARIN 40MG/0.4ML SYR SUBCUT SCH (08:08)
[2018-01-03] MEDS ORDERED: ASPIRIN 81MG EC TABLET PO SCH (09:00)
[2018-01-03 10:08] LABS: BG BASE EXCESS -8.8 mmol/L (-2.0-2.0); BG CARBOXYHEMOGLOBIN 0.1 % (0.5-1.5); BG DEOXYHEMOGLOBIN 2.8 % (0.0-5.0); BG FRACTION INSPIRED OXYGEN 28; BG HCO3 ACT 13.3 mmol/L (22.0-26.0); BG METHEMOGLOBIN 0.3 % (0.0-1.5); BG OXYGEN SATURATION 97.2 % (92.0-98.5); BG OXYHEMOGLOBIN 96.8 % (94.0-97.0); BG PCO2 18.6 mmHg (35.0-45.0); BG PH 7.472 (7.350-7.450); BG PO2 108.9 mmHg (75.0-100.0); BG SAMPLE SITE LEFT RADIAL; BG TOTAL HEMOGLOBIN 8.9 g/dL (12.0-18.0); BG VENT MODE NASAL CANNULA
[2018-01-03 11:18] LABS: BASOPHILS % 0.3 % (0.0-2.0); EOSINOPHILS % 0.4 % (0.0-5.0); HEMATOCRIT. 31.5 % (36.0-48.0); HEMOGLOBIN. 9.9 g/dL (12.0-16.0); LYMPHOCYTES % 30.5 % (20.0-50.0); MEAN CORPUSCULAR HEMOGLOBIN 24.4 pg (28.0-32.0); MEAN PLATELET VOLUME 7.5 fl (7.4-10.4); MONOCYTES % 7.3 % (2.0-8.0); NEUTROPHILS % 61.5 % (40.0-76.0); PLATELET 432 x1000/uL (130-400); RED BLOOD CELL COUNT 4.04 mill/uL (4.2-5.4); RED CELL DISTRIBUTION WIDTH 21.4 % (11.6-14.6)
[2018-01-03 11:28] LABS: CHLORIDE 101 mEq/L (98-107)
[2018-01-03 11:43] LABS: LDL CHOLESTEROL 79 mg/dL (5-100)
[2018-01-03 11:44] LABS: CREATINE KINASE 42 IU/L (26-192)
[2018-01-03 11:45] LABS: HDL CHOLESTEROL 73 mg/dL (40-59); T4 FREE 0.82 ng/dL (0.76-1.46)
[2018-01-03 12:00] VITALS: BP 160/110
[2018-01-03] MEDS ORDERED: GUAIFENESIN/CODEINE 200-20MG/10ML UDC PO PRN (12:00)
[2018-01-03] MEDS: DILTIAZEM HCL 30MG TABLET PO SCH ×2 (13:15→17:42)
[2018-01-03] MEDS ORDERED: LIDOCAINE HCL/PF 1% 2ML VIAL ONE (14:41)
[2018-01-03] MEDS ORDERED: IPRATROPIUM/ALBUTEROL 0.5-3(2.5)MG/3ML NEB INH SCH (15:15)
[2018-01-03 16:00] VITALS: BP 118/79
[2018-01-03] MEDS ORDERED: GUAIFENESIN/CODEINE 100-10MG/5ML UDC PO PRN (18:45)
[2018-01-03 19:07] VITALS: BP 118/79
== END 2018-01-03 19:48 | disposition left against medical advice (07) | DRG 133 ==
LOC: ER 02:24 → 5WST 05:39 → EDBEDREQ 05:41 → EDBEDREQTM 05:41 → ENRESERV 09:56
PROVIDERS: ADMIT Internal Medicine; ATTEND Internal Medicine
DX: J96.20 Acute and chronic respiratory failure, unspecified whether with hypoxia or hypercapnia (principal); I50.33 Acute on chronic diastolic (congestive) heart failure; J44.0 Chronic obstructive pulmonary disease with (acute) lower respiratory infection; E66.2 Morbid (severe) obesity with alveolar hypoventilation; Z99.81 Dependence on supplemental oxygen; I11.0 Hypertensive heart disease with heart failure; J44.1 Chronic obstructive pulmonary disease with (acute) exacerbation; J20.9 Acute bronchitis, unspecified; R07.89 Other chest pain; E11.9 Type 2 diabetes mellitus without complications; E78.00 Pure hypercholesterolemia, unspecified; F41.9 Anxiety disorder, unspecified; G89.29 Other chronic pain; Z53.21 Procedure and treatment not carried out due to patient leaving prior to being seen by health care provider; M54.9 Dorsalgia, unspecified; Z68.43 Body mass index [BMI] 50.0-59.9, adult; M17.0 Bilateral primary osteoarthritis of knee; Z87.891 Personal history of nicotine dependence; Z79.899 Other long term (current) drug therapy; Z79.82 Long term (current) use of aspirin; Z88.8 Allergy status to other drugs, medicaments and biological substances; J98.11 Atelectasis
CPT/HCPCS: 36415; 36600; 71045; 71101; 80053; 80061; 82375; 82550; 82553; 82805; 82962; 83880; 84439; 84443; 84481; 84484; 85025; 93005; 93970; 94640; 96374; 99285; J1650; J1815; J2270; J2920; J2930; J3490; J7611; J7620

== ENCOUNTER 2018-03-29 23:09 | Emergency (ER) | payer MEDICAID ==
[~2018-03-29] VITALS: Ht 162.6 cm; Wt 145.0 kg
[~2018-03-29 23:09] MED LIST changes: +BENA20TA10 PO; -BENA20TA3 PO
[2018-03-30] MEDS ORDERED: MORPHINE SULFATE 10 MG/ML CPJ IM ONE (00:45)
[2018-03-30] MEDS ORDERED: IPRATROPIUM/ALBUTEROL 0.5-3(2.5)MG/3ML NEB HHN ONE ×2 (00:45→03:30)
[2018-03-30] MEDS ORDERED: KETOROLAC 60MG/2ML VIAL IM ONE (00:45)
[2018-03-30 04:50] VITALS: BP 132/95
== END 2018-03-30 05:05 | disposition home or self-care (01) ==
LOC: ER 23:09
DX: S00.83XA Contusion of other part of head, initial encounter (principal); R07.89 Other chest pain; R06.2 Wheezing; J44.9 Chronic obstructive pulmonary disease, unspecified; M54.2 Cervicalgia; E11.9 Type 2 diabetes mellitus without complications; I10 Essential (primary) hypertension; Y08.89XA Assault by other specified means, initial encounter; Y93.89 Activity, other specified; Y92.89 Other specified places as the place of occurrence of the external cause; Y99.8 Other external cause status; Z90.49 Acquired absence of other specified parts of digestive tract; Z79.899 Other long term (current) drug therapy; Z91.013 Allergy to seafood; Z88.1 Allergy status to other antibiotic agents
CPT/HCPCS: 70450; 71045; 72125; 94640; 96372; 99284; J1885; J2270; J7620

== ENCOUNTER 2019-01-23 00:39 | Inpatient (IN) | payer MEDICAID ==
[2019-01-23] VITALS (19 sets, daily range): BP systolic 122–161; BP diastolic 55–94
[~2019-01-23] VITALS: Ht 160 cm; Wt 152.4 kg
[~2019-01-23 00:39] MED LIST changes: -ASPI-1159 PO; +ASPI-1393 PO; -D-ME473S8 PO; -HYDR-4001 PO; +LANTUSUD SUBCUT; -LORA-250 PO; +METF-416 PO; -METF10004 PO; -SERT20OR6 PO
[2019-01-23] MEDS ORDERED: IPRATROPIUM BROMIDE (0.02%) 0.5MG/2.5ML NEB HHN STA (00:45)
[2019-01-23] MEDS ORDERED: ALBUTEROL (0.083%) 2.5MG/3ML NEB HHN STA (00:45)
[2019-01-23] MEDS ORDERED: METHYLPREDNISOLONE SOD SUCC 125 MG/2 ML VIAL IV STA (00:45)
[2019-01-23] MEDS ORDERED: ASPIRIN 81MG TABLET PO ONE (01:00)
[2019-01-23] MEDS ORDERED: ONDANSETRON HCL 4MG/2ML INJ IV ONE (01:00)
[2019-01-23] MEDS: NITROGLYCERIN 0.4MG TABLET SL SL PRN ×2 (01:12→03:54)
[2019-01-23] MEDS ORDERED: ONDANSETRON HCL 4MG/2ML INJ IV STA (01:41)
[2019-01-23] MEDS ORDERED: MORPHINE SULFATE 4 MG/ML CPJ (NOT FOR IM USE) IV STA (01:41)
[2019-01-23 01:52] LABS: BASOPHILS % 0.5 % (0.0-2.0); EOSINOPHILS % 3.5 % (0.0-5.0); HEMATOCRIT. 32.5 % (36.0-48.0); HEMOGLOBIN. 10.4 g/dL (12.0-16.0); LYMPHOCYTES % 44.3 % (20.0-50.0); MEAN CORPUSCULAR HEMOGLOBIN 25.5 pg (28.0-32.0); MEAN CORPUSCULAR VOLUME 79.9 fL (81.0-99.0); MEAN PLATELET VOLUME 7.6 fl (7.4-10.4); NEUTROPHILS % 46.7 % (40.0-76.0); PLATELET 352 x1000/uL (130-400); RED BLOOD CELL COUNT 4.07 mill/uL (4.2-5.4); RED CELL DISTRIBUTION WIDTH 19.7 % (11.6-14.6)
[2019-01-23 01:59] LABS: CHLORIDE 102 mEq/L (98-107)
[2019-01-23 02:03] LABS: PARTIAL THROMBOPLASTIN TIME 30.5 sec (23.4-31.0); PROTHROMBIN TIME 10.7 sec (9.6-11.0)
[2019-01-23 02:36] LABS: BG BILEVEL POS AIRWAY PRESSURE 15/5; BG CARBOXYHEMOGLOBIN 0.7 % (0.5-1.5); BG DEOXYHEMOGLOBIN 6.1 % (0.0-5.0); BG FRACTION INSPIRED OXYGEN 100; BG HCO3 ACT 22.2 mmol/L (22.0-26.0); BG METHEMOGLOBIN 0.4 % (0.0-1.5); BG OXYGEN SATURATION 93.8 % (92.0-98.5); BG OXYHEMOGLOBIN 92.8 % (94.0-97.0); BG PCO2 50.6 mmHg (35.0-45.0); BG PO2 82.6 mmHg (75.0-100.0); BG SAMPLE SITE RIGHT RADIAL; BG TOTAL HEMOGLOBIN 11.2 g/dL (12.0-18.0); BG VENT MODE MASK - BIPAP
[2019-01-23] MEDS ORDERED: MORPHINE SULFATE 4 MG/ML CPJ (NOT FOR IM USE) IV ONE (03:00)
[2019-01-23] MEDS ORDERED: FUROSEMIDE 40MG/4ML VIAL IV ONE (03:00)
[2019-01-23] MEDS ORDERED: DEXTROSE 50% WATER 50ML SYRINGE IV PRN (06:15)
[2019-01-23] MEDS: BLOOD SUGAR DIAGNOSTIC STRIP TEST SCH ×4 (07:16→21:00)
[2019-01-23] MEDS: PANTOPRAZOLE 40MG DR TABLET PO SCH (07:16)
[2019-01-23] MEDS: METHYLPREDNISOLONE SOD SUCC 40 MG/ML VIAL IV SCH ×2 (07:16→16:51)
[2019-01-23] MEDS: INSULIN LISPRO 100 UNITS/ML SUBCUT SCH ×4 (08:00→21:35)
[2019-01-23] MEDS ORDERED: LIDOCAINE HCL/PF 1% 2ML VIAL ONE (08:34)
[2019-01-23] MEDS: IPRATROPIUM/ALBUTEROL 0.5-3(2.5)MG/3ML NEB HHN SCH ×4 (09:20→21:08)
[2019-01-23] MEDS: ENOXAPARIN 40MG/0.4ML SYR SUBCUT SCH ×2 (09:41→21:00)
[2019-01-23] MEDS: FUROSEMIDE 40MG/4ML VIAL IVP SCH (10:12)
[2019-01-23] MEDS: MORPHINE SULFATE 2 MG/ML CPJ (NOT FOR IM USE) IV PRN ×3 (10:15→20:41)
[2019-01-23] MEDS ORDERED: AMLODIPINE BESYLATE 2.5 MG PO SCH (11:00)
[2019-01-23] MEDS ORDERED: ALBUTEROL SULFATE NEB SCH (11:00)
[2019-01-23] MEDS ORDERED: MEDICATION NOT ON FORMULARY EA (Famotidine (Pepcid) 20 MG) PO SCH (11:00)
[2019-01-23] MEDS ORDERED: CITALOPRAM HYDROBROMIDE 10 MG PO SCH (11:00)
[2019-01-23] MEDS ORDERED: MEDICATION NOT ON FORMULARY EA (Baclofen 10 MG) PO SCH (13:00)
[2019-01-23] MEDS ORDERED: MEDICATION NOT ON FORMULARY EA (Gabapentin 300 MG) PO SCH (13:00)
[2019-01-23] MEDS: BACLOFEN 10MG TABLET PO SCH ×2 (13:40→21:31)
[2019-01-23] MEDS: AMLODIPINE 2.5MG TABLET PO SCH (13:40)
[2019-01-23] MEDS: CITALOPRAM HYDROBROMIDE 10MG TABLET PO SCH (13:40)
[2019-01-23] MEDS: QUETIAPINE FUMARATE 50MG TABLET PO SCH (13:41)
[2019-01-23] MEDS: ASPIRIN 81MG EC TABLET PO SCH (13:41)
[2019-01-23] MEDS: GABAPENTIN 300MG CAPSULE PO SCH ×2 (14:17→21:31)
[2019-01-23] MEDS: BUDESONIDE 0.5MG/2ML NEB HHN SCH ×2 (15:55→21:08)
[2019-01-23] MEDS ORDERED: MEDICATION NOT ON FORMULARY EA (Quetiapine Fumarate (Seroquel) 1 TAB) PO SCH (17:00)
[2019-01-23] MEDS ORDERED: MEDICATION NOT ON FORMULARY EA (Fluticasone/Salmeterol (Advair 250-50 Diskus) 1 DISK) IH SCH (17:00)
[2019-01-23 20:05] LABS: BG BILEVEL POS AIRWAY PRESSURE 15/5; BG CARBOXYHEMOGLOBIN 0.3 % (0.5-1.5); BG DEOXYHEMOGLOBIN 0.8 % (0.0-5.0); BG FRACTION INSPIRED OXYGEN 100; BG HCO3 ACT 25.6 mmol/L (22.0-26.0); BG METHEMOGLOBIN 0.2 % (0.0-1.5); BG OXYGEN SATURATION 99.2 % (92.0-98.5); BG OXYHEMOGLOBIN 98.7 % (94.0-97.0); BG PCO2 45.6 mmHg (35.0-45.0); BG PH 7.367 (7.350-7.450); BG PO2 202.6 mmHg (75.0-100.0); BG SAMPLE SITE LEFT RADIAL; BG TOTAL HEMOGLOBIN 11.1 g/dL (12.0-18.0); BG VENT MODE MASK - BIPAP
[2019-01-23] MEDS ORDERED: MEDICATION NOT ON FORMULARY EA (Hydralazine Hcl 25 MG) PO SCH (21:00)
[2019-01-23] MEDS ORDERED: GUAIFENESIN 600 MG PO SCH (21:00)
[2019-01-23] MEDS ORDERED: MEDICATION NOT ON FORMULARY EA (Pantoprazole Sodium 40 MG) PO SCH (21:00)
[2019-01-23] MEDS ORDERED: MEDICATION NOT ON FORMULARY EA (Benazepril Hcl 20 MG) PO SCH (21:00)
[2019-01-23] MEDS: HYDRALAZINE HCL 25MG TABLET PO SCH (21:00)
[2019-01-23] MEDS: GUAIFENESIN 600MG ER TABLET PO SCH (21:31)
[2019-01-23] MEDS: BENAZEPRIL 10MG TABLET PO SCH (21:31)
[2019-01-23] MEDS ORDERED: INSULIN GLARGINE UD 100 UNITS/ML SYR SUBCUT SCH (22:00)
[2019-01-24] VITALS (24 sets, daily range): BP systolic 118–168; BP diastolic 68–110
[2019-01-24] MEDS: METHYLPREDNISOLONE SOD SUCC 40 MG/ML VIAL IV SCH ×3 (00:51→16:22)
[2019-01-24] MEDS: IPRATROPIUM/ALBUTEROL 0.5-3(2.5)MG/3ML NEB HHN SCH ×6 (01:58→20:52)
[2019-01-24] MEDS: MORPHINE SULFATE 2 MG/ML CPJ (NOT FOR IM USE) IV PRN ×3 (04:29→17:18)
[2019-01-24] MEDS: PANTOPRAZOLE 40MG DR TABLET PO SCH (06:23)
[2019-01-24] MEDS: BLOOD SUGAR DIAGNOSTIC STRIP TEST SCH ×4 (06:23→21:00)
[2019-01-24] MEDS: BACLOFEN 10MG TABLET PO SCH ×3 (06:23→21:53)
[2019-01-24] MEDS: GABAPENTIN 300MG CAPSULE PO SCH ×3 (06:23→21:54)
[2019-01-24 08:26] LABS: BG BASE EXCESS 3.3 mmol/L (-2.0-2.0); BG BILEVEL POS AIRWAY PRESSURE 15/5; BG CARBOXYHEMOGLOBIN 0.3 % (0.5-1.5); BG DEOXYHEMOGLOBIN 0.8 % (0.0-5.0); BG FRACTION INSPIRED OXYGEN 100; BG HCO3 ACT 30.1 mmol/L (22.0-26.0); BG METHEMOGLOBIN 0.3 % (0.0-1.5); BG OXYGEN SATURATION 99.2 % (92.0-98.5); BG OXYHEMOGLOBIN 98.6 % (94.0-97.0); BG PCO2 57.1 mmHg (35.0-45.0); BG PO2 189.1 mmHg (75.0-100.0); BG SAMPLE SITE LEFT RADIAL; BG TOTAL HEMOGLOBIN 10.7 g/dL (12.0-18.0); BG VENT MODE MASK - BIPAP; BG VENT RATE 16 set
[2019-01-24] MEDS: INSULIN LISPRO 100 UNITS/ML SUBCUT SCH ×4 (08:35→21:56)
[2019-01-24] MEDS: FUROSEMIDE 40MG/4ML VIAL IVP SCH (08:43)
[2019-01-24] MEDS: ENOXAPARIN 40MG/0.4ML SYR SUBCUT SCH ×2 (08:45→21:57)
[2019-01-24] MEDS: BENAZEPRIL 10MG TABLET PO SCH ×2 (08:45→21:54)
[2019-01-24] MEDS: GUAIFENESIN 600MG ER TABLET PO SCH ×2 (08:46→21:53)
[2019-01-24] MEDS: CITALOPRAM HYDROBROMIDE 10MG TABLET PO SCH (08:46)
[2019-01-24] MEDS: ASPIRIN 81MG EC TABLET PO SCH (08:46)
[2019-01-24] MEDS: AMLODIPINE 2.5MG TABLET PO SCH (08:46)
[2019-01-24] MEDS: HYDRALAZINE HCL 25MG TABLET PO SCH ×2 (09:24→21:58)
[2019-01-24] MEDS: QUETIAPINE FUMARATE 50MG TABLET PO SCH (09:27)
[2019-01-24] MEDS ORDERED: INSULIN GLARGINE UD 100 UNITS/ML SYR SUBCUT SCH (10:00)
[2019-01-24] MEDS: BUDESONIDE 0.5MG/2ML NEB HHN SCH ×2 (10:37→20:52)
[2019-01-24] MEDS ORDERED: GUAIFENESIN/CODEINE 100-10MG/5ML UDC PO PRN (10:45)
[2019-01-24 12:17] LABS: CHLORIDE 95 mEq/L (98-107)
[2019-01-24 12:27] LABS: BASOPHILS % 0.1 % (0.0-2.0); HEMATOCRIT. 32.6 % (36.0-48.0); HEMOGLOBIN. 10.1 g/dL (12.0-16.0); LYMPHOCYTES % 12.1 % (20.0-50.0); MEAN CORPUSCULAR HEMOGLOBIN 24.9 pg (28.0-32.0); MEAN CORPUSCULAR VOLUME 80.6 fL (81.0-99.0); MEAN PLATELET VOLUME 8.3 fl (7.4-10.4); MONOCYTES % 3.3 % (2.0-8.0); NEUTROPHILS % 84.5 % (40.0-76.0); PLATELET 334 x1000/uL (130-400); RED BLOOD CELL COUNT 4.05 mill/uL (4.2-5.4); RED CELL DISTRIBUTION WIDTH 19.7 % (11.6-14.6)
[2019-01-24] MEDS: HYDROCODONE/ACETAMINOPHEN 5/325MG TABLET PO PRN (13:55)
[2019-01-24] MEDS ORDERED: CEFTRIAXONE 2 G PREMIX 50 ML IV ONE (16:30)
[2019-01-24] MEDS ORDERED: CEFTRIAXONE 2 G in DEXTROSE 5% WATER 50 ML IV NR (18:00)
[2019-01-24] MEDS ORDERED: ALBU2.5V13 NEB (19:51)
[2019-01-24] MEDS ORDERED: BENA20TA10 MT (19:53)
[2019-01-24] MEDS: INSULIN GLARGINE UD 100 UNITS/ML SYR SUBCUT SCH (22:01)
[2019-01-25] VITALS (9 sets, daily range): BP systolic 97–132; BP diastolic 68–87
[2019-01-25] MEDS: IPRATROPIUM/ALBUTEROL 0.5-3(2.5)MG/3ML NEB HHN SCH ×6 (00:43→20:02)
[2019-01-25] MEDS: METHYLPREDNISOLONE SOD SUCC 40 MG/ML VIAL IV SCH ×3 (01:05→15:25)
[2019-01-25] MEDS: MORPHINE SULFATE 2 MG/ML CPJ (NOT FOR IM USE) IV PRN ×4 (01:14→22:08)
[2019-01-25] MEDS: BACLOFEN 10MG TABLET PO SCH ×3 (06:15→21:48)
[2019-01-25] MEDS: HYDROCODONE/ACETAMINOPHEN 5/325MG TABLET PO PRN ×2 (06:16→20:47)
[2019-01-25] MEDS: GABAPENTIN 300MG CAPSULE PO SCH ×3 (06:16→21:48)
[2019-01-25 07:33] LABS: HEMATOCRIT. 31.6 % (36.0-48.0); HEMOGLOBIN. 10.2 g/dL (12.0-16.0); LYMPHOCYTES % 14.9 % (20.0-50.0); MEAN CORPUSCULAR HEMOGLOBIN 25.8 pg (28.0-32.0); MEAN CORPUSCULAR VOLUME 80.3 fL (81.0-99.0); MEAN PLATELET VOLUME 8.4 fl (7.4-10.4); NEUTROPHILS % 81.1 % (40.0-76.0); PLATELET 369 x1000/uL (130-400); RED BLOOD CELL COUNT 3.93 mill/uL (4.2-5.4); RED CELL DISTRIBUTION WIDTH 20.2 % (11.6-14.6)
[2019-01-25] MEDS: QUETIAPINE FUMARATE 50MG TABLET PO SCH (08:30)
[2019-01-25] MEDS: ASPIRIN 81MG EC TABLET PO SCH (08:30)
[2019-01-25] MEDS: GUAIFENESIN 600MG ER TABLET PO SCH ×2 (08:31→21:48)
[2019-01-25] MEDS: FUROSEMIDE 40MG/4ML VIAL IVP SCH (08:31)
[2019-01-25] MEDS: BUDESONIDE 0.5MG/2ML NEB HHN SCH ×2 (08:31→20:01)
[2019-01-25] MEDS: FAMOTIDINE 20MG TABLET PO SCH ×2 (08:31→21:47)
[2019-01-25 08:32] LABS: CHLORIDE 98 mEq/L (98-107)
[2019-01-25] MEDS: HYDRALAZINE HCL 25MG TABLET PO SCH ×2 (08:32→21:48)
[2019-01-25] MEDS: CITALOPRAM HYDROBROMIDE 10MG TABLET PO SCH (08:32)
[2019-01-25] MEDS: BENAZEPRIL 10MG TABLET PO SCH ×2 (08:32→21:47)
[2019-01-25] MEDS: AMLODIPINE 2.5MG TABLET PO SCH (08:32)
[2019-01-25] MEDS: INSULIN LISPRO 100 UNITS/ML SUBCUT SCH ×4 (08:33→21:54)
[2019-01-25] MEDS: ENOXAPARIN 40MG/0.4ML SYR SUBCUT SCH ×3 (08:33→21:49)
[2019-01-25] MEDS: BLOOD SUGAR DIAGNOSTIC STRIP TEST SCH ×5 (11:05→21:35)
[2019-01-25] MEDS: INSULIN GLARGINE UD 100 UNITS/ML SYR SUBCUT SCH ×2 (11:06→21:54)
[2019-01-26] VITALS (7 sets, daily range): BP systolic 128–162; BP diastolic 71–96
[2019-01-26] MEDS: METHYLPREDNISOLONE SOD SUCC 40 MG/ML VIAL IV SCH ×2 (00:08→08:36)
[2019-01-26] MEDS: IPRATROPIUM/ALBUTEROL 0.5-3(2.5)MG/3ML NEB HHN SCH ×6 (00:26→20:42)
[2019-01-26] MEDS: MORPHINE SULFATE 2 MG/ML CPJ (NOT FOR IM USE) IV PRN ×2 (04:22→10:53)
[2019-01-26] MEDS: GABAPENTIN 300MG CAPSULE PO SCH ×3 (06:19→22:32)
[2019-01-26] MEDS: BACLOFEN 10MG TABLET PO SCH ×3 (06:19→22:32)
[2019-01-26] MEDS: BLOOD SUGAR DIAGNOSTIC STRIP TEST SCH ×4 (06:20→21:00)
[2019-01-26] MEDS: INSULIN LISPRO 100 UNITS/ML SUBCUT SCH ×5 (06:58→23:00)
[2019-01-26 08:02] LABS: HEMATOCRIT. 33.1 % (36.0-48.0); HEMOGLOBIN. 10.5 g/dL (12.0-16.0); LYMPHOCYTES % 17.2 % (20.0-50.0); MEAN CORPUSCULAR HEMOGLOBIN 25.6 pg (28.0-32.0); MEAN CORPUSCULAR VOLUME 80.9 fL (81.0-99.0); MONOCYTES % 4.1 % (2.0-8.0); NEUTROPHILS % 78.7 % (40.0-76.0); PLATELET 342 x1000/uL (130-400); RED BLOOD CELL COUNT 4.09 mill/uL (4.2-5.4); RED CELL DISTRIBUTION WIDTH 20.1 % (11.6-14.6)
[2019-01-26 08:10] LABS: CHLORIDE 98 mEq/L (98-107)
[2019-01-26] MEDS: FUROSEMIDE 40MG/4ML VIAL IVP SCH (08:37)
[2019-01-26] MEDS: CITALOPRAM HYDROBROMIDE 10MG TABLET PO SCH (08:37)
[2019-01-26] MEDS: QUETIAPINE FUMARATE 50MG TABLET PO SCH (08:37)
[2019-01-26] MEDS: FAMOTIDINE 20MG TABLET PO SCH ×2 (08:38→22:33)
[2019-01-26] MEDS: BENAZEPRIL 10MG TABLET PO SCH ×2 (08:38→22:33)
[2019-01-26] MEDS: AMLODIPINE 2.5MG TABLET PO SCH (08:38)
[2019-01-26] MEDS: GUAIFENESIN 600MG ER TABLET PO SCH ×2 (08:38→22:32)
[2019-01-26] MEDS: ENOXAPARIN 40MG/0.4ML SYR SUBCUT SCH ×3 (08:39→22:32)
[2019-01-26] MEDS: BUDESONIDE 0.5MG/2ML NEB HHN SCH ×2 (08:52→20:43)
[2019-01-26] MEDS: HYDROCODONE/ACETAMINOPHEN 5/325MG TABLET PO PRN (08:54)
[2019-01-26] MEDS: ASPIRIN 81MG EC TABLET PO SCH (08:55)
[2019-01-26] MEDS: HYDRALAZINE HCL 25MG TABLET PO SCH ×2 (08:57→22:33)
[2019-01-26] MEDS: INSULIN GLARGINE UD 100 UNITS/ML SYR SUBCUT SCH ×2 (10:51→22:59)
[2019-01-26] MEDS ORDERED: DEXTROSE 50% WATER 50ML SYRINGE IV PRN (12:30)
[2019-01-26] MEDS ORDERED: MORPHINE SULFATE 2 MG/ML CPJ (NOT FOR IM USE) IV PRN (14:00)
[2019-01-26] MEDS: PREDNISONE 20MG TABLET PO SCH (16:47)
[2019-01-26] MEDS ORDERED: INSULIN LISPRO 100 UNITS/ML SUBCUT NR (22:45)
[2019-01-27] VITALS: BP 138/77
[2019-01-27] MEDS: IPRATROPIUM/ALBUTEROL 0.5-3(2.5)MG/3ML NEB HHN SCH ×4 (00:41→11:20)
[2019-01-27 04:00] VITALS: BP 127/78
[2019-01-27] MEDS: BLOOD SUGAR DIAGNOSTIC STRIP TEST SCH ×2 (06:15→12:20)
[2019-01-27] MEDS: BACLOFEN 10MG TABLET PO SCH ×2 (06:15→13:42)
[2019-01-27] MEDS: GABAPENTIN 300MG CAPSULE PO SCH ×2 (06:15→13:43)
[2019-01-27] MEDS: INSULIN LISPRO 100 UNITS/ML SUBCUT SCH ×2 (06:25→13:58)
[2019-01-27] MEDS: BUDESONIDE 0.5MG/2ML NEB HHN SCH (07:38)
[2019-01-27 08:00] VITALS: BP 132/92
[2019-01-27] MEDS: HYDRALAZINE HCL 25MG TABLET PO SCH (09:00)
[2019-01-27] MEDS: ENOXAPARIN 40MG/0.4ML SYR SUBCUT SCH (09:00)
[2019-01-27] MEDS: ASPIRIN 81MG EC TABLET PO SCH (10:09)
[2019-01-27] MEDS: PREDNISONE 20MG TABLET PO SCH (10:09)
[2019-01-27] MEDS: FAMOTIDINE 20MG TABLET PO SCH (10:10)
[2019-01-27] MEDS: QUETIAPINE FUMARATE 50MG TABLET PO SCH (10:10)
[2019-01-27] MEDS: GUAIFENESIN 600MG ER TABLET PO SCH (10:12)
[2019-01-27] MEDS: BENAZEPRIL 10MG TABLET PO SCH (10:12)
[2019-01-27] MEDS: FUROSEMIDE 40MG/4ML VIAL IVP SCH (10:13)
[2019-01-27] MEDS: CITALOPRAM HYDROBROMIDE 10MG TABLET PO SCH (10:13)
[2019-01-27] MEDS: AMLODIPINE 2.5MG TABLET PO SCH (10:13)
[2019-01-27] MEDS: INSULIN GLARGINE UD 100 UNITS/ML SYR SUBCUT SCH (10:36)
[2019-01-27 12:00] VITALS: BP 96/48
[2019-01-27 14:03] VITALS: BP_SYST 125; BP_SYST 96; BP_DIAS 48; BP_DIAS 79
== END 2019-01-27 16:29 | disposition home or self-care (01) | DRG 133 ==
LOC: ER 00:39 → EDBEDREQ 03:10 → EDBEDREQTM 03:10 → ENRESERV 03:27 → 3WST 04:15 → 6WST 01-25 11:49
PROVIDERS: ADMIT Internal Medicine; ATTEND Internal Medicine
PROC: 5A09357 Assistance with Respiratory Ventilation, Less than 24 Consecutive Hours, Continuous Positive Airway Pressure (ICD-10-PCS; principal; 2019-01-23)
PROC: 5A09357 Assistance with Respiratory Ventilation, Less than 24 Consecutive Hours, Continuous Positive Airway Pressure (ICD-10-PCS; 2019-01-24)
PROC: 5A09357 Assistance with Respiratory Ventilation, Less than 24 Consecutive Hours, Continuous Positive Airway Pressure (ICD-10-PCS; 2019-01-25)
PROC: 5A09357 Assistance with Respiratory Ventilation, Less than 24 Consecutive Hours, Continuous Positive Airway Pressure (ICD-10-PCS; 2019-01-26)
PROC: 5A09357 Assistance with Respiratory Ventilation, Less than 24 Consecutive Hours, Continuous Positive Airway Pressure (ICD-10-PCS; 2019-01-27)
DX: J96.20 Acute and chronic respiratory failure, unspecified whether with hypoxia or hypercapnia (principal); I50.33 Acute on chronic diastolic (congestive) heart failure; J44.1 Chronic obstructive pulmonary disease with (acute) exacerbation; J45.901 Unspecified asthma with (acute) exacerbation; E11.65 Type 2 diabetes mellitus with hyperglycemia; E66.2 Morbid (severe) obesity with alveolar hypoventilation; K76.0 Fatty (change of) liver, not elsewhere classified; Z99.81 Dependence on supplemental oxygen; I11.0 Hypertensive heart disease with heart failure; M94.0 Chondrocostal junction syndrome [Tietze]; F11.90 Opioid use, unspecified, uncomplicated; D64.9 Anemia, unspecified; F41.9 Anxiety disorder, unspecified; S97.82XA Crushing injury of left foot, initial encounter; S97.81XA Crushing injury of right foot, initial encounter; X58.XXXA Exposure to other specified factors, initial encounter; T38.0X5A Adverse effect of glucocorticoids and synthetic analogues, initial encounter; Z90.49 Acquired absence of other specified parts of digestive tract; Z88.8 Allergy status to other drugs, medicaments and biological substances; Z88.4 Allergy status to anesthetic agent; Z91.013 Allergy to seafood; Z79.82 Long term (current) use of aspirin; Z79.84 Long term (current) use of oral hypoglycemic drugs; Z68.43 Body mass index [BMI] 50.0-59.9, adult; Z71.3 Dietary counseling and surveillance; Y93.89 Activity, other specified; Y92.89 Other specified places as the place of occurrence of the external cause; Y99.8 Other external cause status
CPT/HCPCS: 36415; 36600; 71045; 73620; 80048; 82375; 82805; 82962; 83880; 84484; 93005; 93306; 93970; 94640; 94660; 96374; 96375; 96376; 97162; 99291; J0696; J1650; J1815; J1940; J2270; J2405; J2920; J2930; J3490; J7060; J7512; J7611; J7620; J7626

== ENCOUNTER 2019-03-24 14:52 | Inpatient (IN) | payer MEDICAID ==
[~2019-03-24] VITALS: Ht 162.6 cm; Wt 159.7 kg
[~2019-03-24 14:52] MED LIST changes: -AMLO2.5T2 PO; -BACL-141 PO; +BENA20TA10 MT; -BENA20TA10 PO; -GUAI600T44 PO; -HYDR-4134 PO
[2019-03-24] MEDS ORDERED: METHYLPREDNISOLONE SOD SUCC 125 MG/2 ML VIAL IV STA (15:16)
[2019-03-24] MEDS ORDERED: MAGNESIUM 2 G PREMIX 50 ML IV STA (15:16)
[2019-03-24] MEDS ORDERED: IPRATROPIUM BROMIDE (0.02%) 0.5MG/2.5ML NEB HHN STA (15:16)
[2019-03-24] MEDS ORDERED: ALBUTEROL (0.083%) 2.5MG/3ML NEB HHN STA (15:16)
[2019-03-24] MEDS ORDERED: ASPIRIN 81MG TABLET PO ONE (15:30)
[2019-03-24 16:42] LABS: BASOPHILS % 0.3 % (0.0-2.0); EOSINOPHILS % 0.1 % (0.0-5.0); HEMATOCRIT. 34.8 % (36.0-48.0); LYMPHOCYTES % 13.1 % (20.0-50.0); MEAN CORPUSCULAR HEMOGLOBIN 26.3 pg (28.0-32.0); MEAN CORPUSCULAR VOLUME 82.7 fL (81.0-99.0); MEAN PLATELET VOLUME 8.3 fl (7.4-10.4); MONOCYTES % 1.2 % (2.0-8.0); NEUTROPHILS % 85.3 % (40.0-76.0); PLATELET 293 x1000/uL (130-400); RED BLOOD CELL COUNT 4.21 mill/uL (4.2-5.4); RED CELL DISTRIBUTION WIDTH 22.5 % (11.6-14.6)
[2019-03-24 16:45] LABS: CHLORIDE 99 mEq/L (98-107)
[2019-03-24 16:58] LABS: PLATELET ESTIMATE NORMAL
[2019-03-24] MEDS ORDERED: HYDROCODONE/ACETAMINOPHEN 5/325MG TABLET PO ONE (17:00)
[2019-03-24] MEDS ORDERED: INSULIN REGULAR (HUMULIN R) 300UNITS/3ML SUBCUT ONE (19:45)
[2019-03-24] MEDS: MORPHINE SULFATE 2 MG/ML CPJ (NOT FOR IM USE) IV PRN (20:13)
[2019-03-24 22:50] VITALS: BP 150/87
[2019-03-24 22:51] VITALS: BP 151/88
[2019-03-24] MEDS ORDERED: DEXTROSE 50% WATER 50ML SYRINGE IV PRN (23:00)
[2019-03-24] MEDS ORDERED: IPRATROPIUM/ALBUTEROL 0.5-3(2.5)MG/3ML NEB HHN PRN (23:00)
[2019-03-24] MEDS ORDERED: ACETAMINOPHEN 325MG TABLET PO PRN (23:15)
[2019-03-24] MEDS: IPRATROPIUM/ALBUTEROL 0.5-3(2.5)MG/3ML NEB HHN SCH (23:41)
[2019-03-25] VITALS (7 sets, daily range): BP systolic 107–161; BP diastolic 56–94
[2019-03-25] MEDS: QUETIAPINE FUMARATE 50MG TABLET PO SCH ×2 (00:33→16:43)
[2019-03-25] MEDS: MORPHINE SULFATE 2 MG/ML CPJ (NOT FOR IM USE) IV PRN ×4 (00:51→17:02)
[2019-03-25] MEDS: IPRATROPIUM/ALBUTEROL 0.5-3(2.5)MG/3ML NEB HHN SCH ×5 (04:56→20:17)
[2019-03-25] MEDS: ALBUTEROL (0.083%) 2.5MG/3ML NEB HHN SCH ×4 (06:00→18:00)
[2019-03-25] MEDS: BLOOD SUGAR DIAGNOSTIC STRIP TEST SCH ×4 (06:28→20:11)
[2019-03-25] MEDS: INSULIN LISPRO 100 UNITS/ML SUBCUT SCH ×6 (06:29→20:11)
[2019-03-25] MEDS ORDERED: MEDICATION NOT ON FORMULARY EA (Metformin Hcl 1 TAB) PO SCH (09:00)
[2019-03-25] MEDS ORDERED: MEDICATION NOT ON FORMULARY EA (Fluticasone/Salmeterol (Advair 250-50 Diskus) 1 DISK) IH SCH (09:00)
[2019-03-25] MEDS ORDERED: ENOXAPARIN 40MG/0.4ML SYR SUBCUT SCH (09:00)
[2019-03-25] MEDS: ENOXAPARIN 40MG/0.4ML SYR SUBCUT SCH ×2 (09:00→20:11)
[2019-03-25] MEDS ORDERED: PREDNISONE 20MG TABLET PO SCH (09:00)
[2019-03-25] MEDS ORDERED: MEDICATION NOT ON FORMULARY EA (Benazepril Hcl 1 TAB) MT SCH (09:00)
[2019-03-25] MEDS: GABAPENTIN 300MG CAPSULE PO SCH ×3 (09:12→16:44)
[2019-03-25] MEDS: CITALOPRAM HYDROBROMIDE 10MG TABLET PO SCH (09:12)
[2019-03-25] MEDS: METFORMIN HCL 500MG TABLET PO SCH ×2 (09:12→18:20)
[2019-03-25] MEDS: GUAIFENESIN 600MG ER TABLET PO SCH ×2 (09:13→20:10)
[2019-03-25] MEDS: ASPIRIN 81MG EC TABLET PO SCH (09:14)
[2019-03-25] MEDS: BENAZEPRIL 10MG TABLET PO SCH (09:14)
[2019-03-25] MEDS: FAMOTIDINE 20MG TABLET PO SCH (09:14)
[2019-03-25] MEDS: BUDESONIDE 0.5MG/2ML NEB HHN SCH ×2 (09:33→20:16)
[2019-03-25] MEDS: INSULIN GLARGINE UD 100 UNITS/ML SYR SUBCUT SCH ×2 (09:53→22:00)
[2019-03-25] MEDS ORDERED: INSULIN GLARGINE UD 100 UNITS/ML SYR SUBCUT SCH (10:00)
[2019-03-25 10:08] LABS: BASOPHILS % 0.4 % (0.0-2.0); HEMATOCRIT. 32.3 % (36.0-48.0); LYMPHOCYTES % 11.8 % (20.0-50.0); MEAN CORPUSCULAR HEMOGLOBIN 25.9 pg (28.0-32.0); MEAN CORPUSCULAR VOLUME 83.6 fL (81.0-99.0); MONOCYTES % 2.8 % (2.0-8.0); RED BLOOD CELL COUNT 3.86 mill/uL (4.2-5.4); RED CELL DISTRIBUTION WIDTH 22.3 % (11.6-14.6)
[2019-03-25 10:34] LABS: CHLORIDE 102 mEq/L (98-107)
[2019-03-25 10:45] LABS: LDL CHOLESTEROL 80 mg/dL (5-100)
[2019-03-25 10:48] LABS: HDL CHOLESTEROL 106 mg/dL (40-59)
[2019-03-25] MEDS: DIPHENHYDRAMINE 50MG/ML VIAL IV PRN ×2 (11:01→20:10)
[2019-03-25] MEDS: MONTELUKAST SODIUM 10MG TABLET PO SCH (16:43)
[2019-03-25] MEDS ORDERED: MEDICATION NOT ON FORMULARY EA (Quetiapine Fumarate (Seroquel) 1 TAB) PO SCH (17:00)
[2019-03-25] MEDS: ONDANSETRON HCL 4MG/2ML INJ IV PRN (17:20)
[2019-03-26] VITALS: BP 137/77
[2019-03-26] MEDS: ALBUTEROL (0.083%) 2.5MG/3ML NEB HHN SCH
[2019-03-26] MEDS: IPRATROPIUM/ALBUTEROL 0.5-3(2.5)MG/3ML NEB HHN SCH ×6 (00:24→20:04)
[2019-03-26] MEDS: ONDANSETRON HCL 4MG/2ML INJ IV PRN ×4 (00:49→15:52)
[2019-03-26] MEDS: MORPHINE SULFATE 2 MG/ML CPJ (NOT FOR IM USE) IV PRN ×5 (00:50→19:14)
[2019-03-26 04:00] VITALS: BP 148/83
[2019-03-26] MEDS: DIPHENHYDRAMINE 50MG/ML VIAL IV PRN ×2 (05:02→13:51)
[2019-03-26] MEDS: BLOOD SUGAR DIAGNOSTIC STRIP TEST SCH ×4 (07:46→20:19)
[2019-03-26 08:00] VITALS: BP 148/82
[2019-03-26] MEDS: ENOXAPARIN 40MG/0.4ML SYR SUBCUT SCH ×3 (09:00→20:19)
[2019-03-26] MEDS: INSULIN LISPRO 100 UNITS/ML SUBCUT SCH ×7 (09:12→20:19)
[2019-03-26] MEDS: BENAZEPRIL 10MG TABLET PO SCH (09:17)
[2019-03-26] MEDS: GUAIFENESIN 600MG ER TABLET PO SCH ×2 (09:17→20:17)
[2019-03-26] MEDS: FAMOTIDINE 20MG TABLET PO SCH (09:18)
[2019-03-26] MEDS: GABAPENTIN 300MG CAPSULE PO SCH ×3 (09:18→15:52)
[2019-03-26] MEDS: CITALOPRAM HYDROBROMIDE 10MG TABLET PO SCH (09:18)
[2019-03-26] MEDS: METFORMIN HCL 500MG TABLET PO SCH ×2 (09:18→17:24)
[2019-03-26] MEDS: ASPIRIN 81MG EC TABLET PO SCH (09:18)
[2019-03-26] MEDS: BUDESONIDE 0.5MG/2ML NEB HHN SCH ×2 (09:26→20:03)
[2019-03-26] MEDS: INSULIN GLARGINE UD 100 UNITS/ML SYR SUBCUT SCH ×2 (10:39→22:00)
[2019-03-26 12:00] VITALS: BP 134/83
[2019-03-26 12:05] LABS: PLATELET 155 x1000/uL (130-400)
[2019-03-26] MEDS ORDERED: LIDOCAINE HCL/PF 1% 2ML VIAL ONE (13:13)
[2019-03-26 16:00] VITALS: BP 121/79
[2019-03-26 16:45] LABS: BG BASE EXCESS 4.9 mmol/L (-2.0-2.0); BG CARBOXYHEMOGLOBIN 0.3 % (0.5-1.5); BG DEOXYHEMOGLOBIN 5.6 % (0.0-5.0); BG FRACTION INSPIRED OXYGEN 21; BG HCO3 ACT 30.3 mmol/L (22.0-26.0); BG OXYGEN SATURATION 94.4 % (92.0-98.5); BG OXYHEMOGLOBIN 94.1 % (94.0-97.0); BG PH 7.409 (7.350-7.450); BG PO2 73.7 mmHg (75.0-100.0); BG SAMPLE SITE RIGHT RADIAL; BG TOTAL HEMOGLOBIN 10.2 g/dL (12.0-18.0); BG VENT MODE ROOM AIR
[2019-03-26] MEDS: MONTELUKAST SODIUM 10MG TABLET PO SCH (17:23)
[2019-03-26] MEDS: QUETIAPINE FUMARATE 50MG TABLET PO SCH (17:24)
[2019-03-26] MEDS ORDERED: PREDNISONE 20MG TABLET PO NR (18:15)
[2019-03-26 20:09] VITALS: BP 124/71
[2019-03-27] VITALS: BP 126/67
[2019-03-27] MEDS: ONDANSETRON HCL 4MG/2ML INJ IV PRN (00:21)
[2019-03-27] MEDS: DIPHENHYDRAMINE 50MG/ML VIAL IV PRN ×3 (00:21→16:56)
[2019-03-27] MEDS: MORPHINE SULFATE 2 MG/ML CPJ (NOT FOR IM USE) IV PRN ×5 (00:23→21:31)
[2019-03-27] MEDS: IPRATROPIUM/ALBUTEROL 0.5-3(2.5)MG/3ML NEB HHN SCH ×7 (00:25→22:01)
[2019-03-27 04:00] VITALS: BP 147/82
[2019-03-27] MEDS: BLOOD SUGAR DIAGNOSTIC STRIP TEST SCH ×4 (07:22→21:31)
[2019-03-27 08:08] VITALS: BP 163/105
[2019-03-27] MEDS: ENOXAPARIN 40MG/0.4ML SYR SUBCUT SCH ×2 (08:14→20:26)
[2019-03-27] MEDS: INSULIN LISPRO 100 UNITS/ML SUBCUT SCH ×7 (08:16→20:28)
[2019-03-27] MEDS: GUAIFENESIN 600MG ER TABLET PO SCH ×2 (08:19→20:26)
[2019-03-27] MEDS: GABAPENTIN 300MG CAPSULE PO SCH ×2 (08:19→17:12)
[2019-03-27] MEDS: FAMOTIDINE 20MG TABLET PO SCH (08:19)
[2019-03-27] MEDS: BENAZEPRIL 10MG TABLET PO SCH (08:19)
[2019-03-27] MEDS: CITALOPRAM HYDROBROMIDE 10MG TABLET PO SCH (08:19)
[2019-03-27] MEDS: ASPIRIN 81MG EC TABLET PO SCH (08:19)
[2019-03-27] MEDS: METFORMIN HCL 500MG TABLET PO SCH ×2 (08:22→17:11)
[2019-03-27] MEDS: INSULIN GLARGINE UD 100 UNITS/ML SYR SUBCUT SCH ×2 (10:06→21:32)
[2019-03-27] MEDS: BUDESONIDE 0.5MG/2ML NEB HHN SCH ×3 (10:43→17:53)
[2019-03-27 12:18] VITALS: BP 121/67
[2019-03-27] MEDS ORDERED: CARISOPRODOL 350 MG TABLET PO NR (13:45)
[2019-03-27] MEDS ORDERED: METHYLPREDNISOLONE SOD SUCC 40 MG/ML VIAL IV NR (13:45)
[2019-03-27 16:00] VITALS: BP 142/58
[2019-03-27] MEDS: MONTELUKAST SODIUM 10MG TABLET PO SCH (17:10)
[2019-03-27] MEDS: QUETIAPINE FUMARATE 50MG TABLET PO SCH (17:11)
[2019-03-27] MEDS: ALBUTEROL (0.083%) 2.5MG/3ML NEB HHN SCH (17:55)
[2019-03-27 20:00] VITALS: BP 140/97
[2019-03-28] VITALS: BP 164/98
[2019-03-28] MEDS: IPRATROPIUM/ALBUTEROL 0.5-3(2.5)MG/3ML NEB HHN SCH ×6 (01:48→20:31)
[2019-03-28] MEDS: MORPHINE SULFATE 2 MG/ML CPJ (NOT FOR IM USE) IV PRN ×4 (02:47→17:32)
[2019-03-28] MEDS: DIPHENHYDRAMINE 50MG/ML VIAL IV PRN ×2 (03:00→13:16)
[2019-03-28 04:00] VITALS: BP 161/88
[2019-03-28 08:00] VITALS: BP 152/91
[2019-03-28] MEDS: BLOOD SUGAR DIAGNOSTIC STRIP TEST SCH ×4 (08:04→20:30)
[2019-03-28] MEDS: METFORMIN HCL 500MG TABLET PO SCH ×2 (08:31→18:36)
[2019-03-28] MEDS: INSULIN LISPRO 100 UNITS/ML SUBCUT SCH ×7 (08:34→20:30)
[2019-03-28] MEDS: GUAIFENESIN 600MG ER TABLET PO SCH (08:45)
[2019-03-28] MEDS: ASPIRIN 81MG EC TABLET PO SCH (08:45)
[2019-03-28] MEDS: BENAZEPRIL 10MG TABLET PO SCH (08:46)
[2019-03-28] MEDS: FAMOTIDINE 20MG TABLET PO SCH (08:46)
[2019-03-28] MEDS: CITALOPRAM HYDROBROMIDE 10MG TABLET PO SCH (08:46)
[2019-03-28] MEDS: ENOXAPARIN 40MG/0.4ML SYR SUBCUT SCH ×2 (08:51→20:30)
[2019-03-28] MEDS: GABAPENTIN 300MG CAPSULE PO SCH ×2 (09:04→18:36)
[2019-03-28] MEDS ORDERED: GLIPIZIDE 5MG TABLET PO NR (09:30)
[2019-03-28] MEDS: INSULIN GLARGINE UD 100 UNITS/ML SYR SUBCUT SCH ×2 (11:05→22:38)
[2019-03-28] MEDS ORDERED: CARISOPRODOL 350 MG TABLET PO NR (11:15)
[2019-03-28 12:00] VITALS: BP 116/74
[2019-03-28] MEDS ORDERED: IPRATROPIUM/ALBUTEROL 0.5-3(2.5)MG/3ML NEB HHN PRN (13:00)
[2019-03-28] MEDS ORDERED: TERBUTALINE SULFATE 1MG/ML VIAL SUBCUT NR (13:00)
[2019-03-28] MEDS ORDERED: BENZONATATE 100MG CAPSULE PO PRN (13:15)
[2019-03-28] MEDS: METHYLPREDNISOLONE SOD SUCC 125 MG/2 ML VIAL IV SCH ×2 (13:57→18:00)
[2019-03-28 16:00] VITALS: BP 127/74
[2019-03-28] MEDS: QUETIAPINE FUMARATE 50MG TABLET PO SCH (17:31)
[2019-03-28] MEDS ORDERED: GLIPIZIDE 5MG TABLET PO SCH (19:07)
[2019-03-28 20:00] VITALS: BP 148/89
[2019-03-29] VITALS: BP 154/96
[2019-03-29] MEDS: METHYLPREDNISOLONE SOD SUCC 125 MG/2 ML VIAL IV SCH ×2 (00:05→11:21)
[2019-03-29] MEDS: IPRATROPIUM/ALBUTEROL 0.5-3(2.5)MG/3ML NEB HHN SCH ×6 (00:19→21:20)
[2019-03-29] MEDS: MORPHINE SULFATE 2 MG/ML CPJ (NOT FOR IM USE) IV PRN ×5 (00:50→21:53)
[2019-03-29] MEDS: DIPHENHYDRAMINE 50MG/ML VIAL IV PRN ×3 (02:32→21:59)
[2019-03-29 04:00] VITALS: BP 150/87
[2019-03-29] MEDS: BLOOD SUGAR DIAGNOSTIC STRIP TEST SCH ×4 (07:40→21:00)
[2019-03-29 08:00] VITALS: BP 160/108
[2019-03-29] MEDS: CITALOPRAM HYDROBROMIDE 10MG TABLET PO SCH (08:38)
[2019-03-29] MEDS: LOSARTAN POTASSIUM 25 MG TABLET PO SCH (08:39)
[2019-03-29] MEDS: GLIPIZIDE 5MG TABLET PO SCH ×2 (08:39→17:13)
[2019-03-29] MEDS: FAMOTIDINE 20MG TABLET PO SCH (08:39)
[2019-03-29] MEDS: METFORMIN HCL 500MG TABLET PO SCH ×2 (08:39→17:12)
[2019-03-29] MEDS: INSULIN LISPRO 100 UNITS/ML SUBCUT SCH ×7 (08:41→21:00)
[2019-03-29] MEDS: ENOXAPARIN 40MG/0.4ML SYR SUBCUT SCH ×3 (08:42→21:42)
[2019-03-29] MEDS: ASPIRIN 81MG EC TABLET PO SCH (08:44)
[2019-03-29] MEDS: GABAPENTIN 300MG CAPSULE PO SCH ×2 (08:56→17:27)
[2019-03-29 12:00] VITALS: BP 152/88
[2019-03-29] MEDS ORDERED: GUAIFENESIN/CODEINE 100-10MG/5ML UDC PO PRN (15:00)
[2019-03-29 16:00] VITALS: BP 168/105
[2019-03-29] MEDS: BENZONATATE 100MG CAPSULE PO SCH ×2 (17:12→21:43)
[2019-03-29] MEDS: CARISOPRODOL 350 MG TABLET PO PRN (17:12)
[2019-03-29] MEDS: QUETIAPINE FUMARATE 50MG TABLET PO SCH (17:13)
[2019-03-29] MEDS: NITROGLYCERIN OINT 1GM/INCH UDPKT TD SCH ×2 (17:17→21:43)
[2019-03-29 20:00] VITALS: BP 141/78
[2019-03-29] MEDS: FLUTICASONE PROPIONATE 50MCG/SPRAY BOTTLE BOTHNSTRLS SCH (21:42)
[2019-03-29] MEDS: INSULIN GLARGINE UD 100 UNITS/ML SYR SUBCUT SCH (21:59)
[2019-03-30 00:05] VITALS: BP 137/90
[2019-03-30] MEDS: METHYLPREDNISOLONE SOD SUCC 125 MG/2 ML VIAL IV SCH ×2 (00:33→12:27)
[2019-03-30] MEDS: IPRATROPIUM/ALBUTEROL 0.5-3(2.5)MG/3ML NEB HHN SCH ×6 (00:41→20:48)
[2019-03-30] MEDS: MORPHINE SULFATE 2 MG/ML CPJ (NOT FOR IM USE) IV PRN ×4 (02:45→21:49)
[2019-03-30 04:00] VITALS: BP 144/79
[2019-03-30] MEDS: DIPHENHYDRAMINE 50MG/ML VIAL IV PRN ×3 (04:31→18:03)
[2019-03-30] MEDS: CARISOPRODOL 350 MG TABLET PO PRN ×2 (04:31→12:27)
[2019-03-30] MEDS: NITROGLYCERIN OINT 1GM/INCH UDPKT TD SCH ×3 (05:56→21:48)
[2019-03-30] MEDS: BENZONATATE 100MG CAPSULE PO SCH ×3 (05:56→21:48)
[2019-03-30] MEDS: BLOOD SUGAR DIAGNOSTIC STRIP TEST SCH ×4 (06:02→21:48)
[2019-03-30 08:00] VITALS: BP 141/97
[2019-03-30] MEDS: GLIPIZIDE 5MG TABLET PO SCH ×2 (08:10→18:04)
[2019-03-30] MEDS: CITALOPRAM HYDROBROMIDE 10MG TABLET PO SCH (09:05)
[2019-03-30] MEDS: FLUTICASONE PROPIONATE 50MCG/SPRAY BOTTLE BOTHNSTRLS SCH ×2 (09:05→21:49)
[2019-03-30] MEDS: METFORMIN HCL 500MG TABLET PO SCH ×2 (09:05→18:04)
[2019-03-30] MEDS: LOSARTAN POTASSIUM 25 MG TABLET PO SCH (09:05)
[2019-03-30] MEDS: ASPIRIN 81MG EC TABLET PO SCH (09:05)
[2019-03-30] MEDS: FAMOTIDINE 20MG TABLET PO SCH (09:05)
[2019-03-30] MEDS: INSULIN LISPRO 100 UNITS/ML SUBCUT SCH ×6 (09:08→21:53)
[2019-03-30] MEDS: ENOXAPARIN 40MG/0.4ML SYR SUBCUT SCH ×2 (09:09→21:50)
[2019-03-30] MEDS: GABAPENTIN 300MG CAPSULE PO SCH ×2 (09:13→18:04)
[2019-03-30] MEDS: INSULIN GLARGINE UD 100 UNITS/ML SYR SUBCUT SCH ×2 (10:28→21:52)
[2019-03-30 12:00] VITALS: BP 164/107
[2019-03-30 16:00] VITALS: BP 170/118
[2019-03-30] MEDS: ACETYLCYSTEINE 100MG/ML 10% VIAL 4ML INH SCH (16:35)
[2019-03-30] MEDS: QUETIAPINE FUMARATE 50MG TABLET PO SCH (18:03)
[2019-03-31 00:42] VITALS: BP 158/95
[2019-03-31] MEDS: IPRATROPIUM/ALBUTEROL 0.5-3(2.5)MG/3ML NEB HHN SCH ×4 (00:44→12:39)
[2019-03-31] MEDS: ACETYLCYSTEINE 100MG/ML 10% VIAL 4ML INH SCH ×2 (00:44→10:43)
[2019-03-31] MEDS: METHYLPREDNISOLONE SOD SUCC 125 MG/2 ML VIAL IV SCH ×2 (00:49→13:20)
[2019-03-31] MEDS: MORPHINE SULFATE 2 MG/ML CPJ (NOT FOR IM USE) IV PRN ×3 (03:11→13:11)
[2019-03-31 04:00] VITALS: BP 157/109
[2019-03-31 05:06] VITALS: BP 157/109
[2019-03-31] MEDS: BENZONATATE 100MG CAPSULE PO SCH ×2 (06:01→13:28)
[2019-03-31] MEDS: NITROGLYCERIN OINT 1GM/INCH UDPKT TD SCH ×2 (06:02→13:28)
[2019-03-31] MEDS: DIPHENHYDRAMINE 50MG/ML VIAL IV PRN (06:10)
[2019-03-31] MEDS: INSULIN LISPRO 100 UNITS/ML SUBCUT SCH ×4 (07:40→13:27)
[2019-03-31 08:00] VITALS: BP 109/107
[2019-03-31] MEDS: FLUTICASONE PROPIONATE 50MCG/SPRAY BOTTLE BOTHNSTRLS SCH (08:09)
[2019-03-31] MEDS: CITALOPRAM HYDROBROMIDE 10MG TABLET PO SCH (08:10)
[2019-03-31] MEDS: ASPIRIN 81MG EC TABLET PO SCH (08:10)
[2019-03-31] MEDS: METFORMIN HCL 500MG TABLET PO SCH (08:10)
[2019-03-31] MEDS: FAMOTIDINE 20MG TABLET PO SCH (08:10)
[2019-03-31] MEDS: GABAPENTIN 300MG CAPSULE PO SCH (08:10)
[2019-03-31] MEDS: LOSARTAN POTASSIUM 25 MG TABLET PO SCH (08:11)
[2019-03-31] MEDS: GLIPIZIDE 5MG TABLET PO SCH (08:11)
[2019-03-31] MEDS: BLOOD SUGAR DIAGNOSTIC STRIP TEST SCH ×2 (08:11→13:27)
[2019-03-31] MEDS: ENOXAPARIN 40MG/0.4ML SYR SUBCUT SCH (08:12)
[2019-03-31] MEDS: CARISOPRODOL 350 MG TABLET PO PRN (09:49)
[2019-03-31] MEDS: INSULIN GLARGINE UD 100 UNITS/ML SYR SUBCUT SCH (09:52)
[2019-03-31 12:00] VITALS: BP 145/93
[2019-03-31 13:23] LABS: CLARITY URINE CLEAR (CLEAR); COLOR URINE YELLOW (YELLOW); KETONES URINE NEGATIVE (NEGATIVE); LEUKOCYTE ESTERASE URINE NEGATIVE (NEGATIVE); NITRITE URINE NEGATIVE (NEGATIVE); OCCULT BLOOD URINE NEGATIVE (NEGATIVE); PH URINE 7.5 (4.5-8.0); PROTEIN URINE NEGATIVE (NEGATIVE); UROBILINOGEN URINE 0.2 E.U./dL (0.2-1.0)
[2019-03-31 14:26] LABS: *AMPHETAMINES SCREEN URINE NEGATIVE (NEGATIVE); *BARBITURATES SCREEN URINE NEGATIVE (NEGATIVE); *BENZODIAZEPINES SCREEN URINE NEGATIVE (NEGATIVE); *COCAINE SCREEN URINE NEGATIVE (NEGATIVE); CANNABINOID URINE SCREEN NEGATIVE (NEGATIVE); METHADONE URINE SCREEN NEGATIVE (NEGATIVE); OPIATES URINE SCREEN PRESUMTIVE POSITIVE (NEGATIVE); PHENCYCLIDINE URINE SCREEN NEGATIVE (NEGATIVE)
[2019-03-31 15:06] VITALS: BP 135/69
[2019-04-01] MEDS ORDERED: LOSARTAN POTASSIUM 100 MG TABLET PO SCH (09:00)
== END 2019-03-31 15:20 | disposition home or self-care (01) | DRG 140 ==
LOC: ER 14:52 → 7WST 17:10 → EDBEDREQ 17:13 → EDBEDREQTM 17:13 → ENRESERV 20:55
PROVIDERS: ADMIT Internal Medicine; ATTEND Internal Medicine
PROC: 5A09357 Assistance with Respiratory Ventilation, Less than 24 Consecutive Hours, Continuous Positive Airway Pressure (ICD-10-PCS; principal; 2019-03-25)
PROC: 5A09357 Assistance with Respiratory Ventilation, Less than 24 Consecutive Hours, Continuous Positive Airway Pressure (ICD-10-PCS; 2019-03-26)
PROC: 5A09357 Assistance with Respiratory Ventilation, Less than 24 Consecutive Hours, Continuous Positive Airway Pressure (ICD-10-PCS; 2019-03-28)
PROC: 5A09357 Assistance with Respiratory Ventilation, Less than 24 Consecutive Hours, Continuous Positive Airway Pressure (ICD-10-PCS; 2019-03-29)
PROC: 5A09357 Assistance with Respiratory Ventilation, Less than 24 Consecutive Hours, Continuous Positive Airway Pressure (ICD-10-PCS; 2019-03-30)
PROC: 5A09357 Assistance with Respiratory Ventilation, Less than 24 Consecutive Hours, Continuous Positive Airway Pressure (ICD-10-PCS; 2019-03-31)
DX: J44.1 Chronic obstructive pulmonary disease with (acute) exacerbation (principal); J96.20 Acute and chronic respiratory failure, unspecified whether with hypoxia or hypercapnia; E11.00 Type 2 diabetes mellitus with hyperosmolarity without nonketotic hyperglycemic-hyperosmolar coma (NKHHC); I11.0 Hypertensive heart disease with heart failure; Z99.81 Dependence on supplemental oxygen; I50.32 Chronic diastolic (congestive) heart failure; K76.0 Fatty (change of) liver, not elsewhere classified; E11.65 Type 2 diabetes mellitus with hyperglycemia; E44.1 Mild protein-calorie malnutrition; M94.0 Chondrocostal junction syndrome [Tietze]; Z68.44 Body mass index [BMI] 60.0-69.9, adult; D64.9 Anemia, unspecified; T38.0X5A Adverse effect of glucocorticoids and synthetic analogues, initial encounter; M19.90 Unspecified osteoarthritis, unspecified site; Z90.49 Acquired absence of other specified parts of digestive tract; E66.2 Morbid (severe) obesity with alveolar hypoventilation; F41.9 Anxiety disorder, unspecified; J98.4 Other disorders of lung; Z87.891 Personal history of nicotine dependence; Z98.891 History of uterine scar from previous surgery; Y92.89 Other specified places as the place of occurrence of the external cause; Z91.013 Allergy to seafood; Z71.3 Dietary counseling and surveillance; Z79.4 Long term (current) use of insulin
CPT/HCPCS: 36415; 36600; 70490; 71045; 80048; 80061; 80305; 81003; 82375; 82805; 82962; 83036; 83880; 84484; 93005; 94640; 94644; 94660; 96374; 99291; C1893; J1200; J1650; J1815; J2270; J2405; J2920; J2930; J3105; J3475; J3490; J7512; J7608; J7611; J7620; J7626

== ENCOUNTER 2019-04-11 16:10 | Inpatient (IN) | payer MEDICAID ==
[~2019-04-11] VITALS: Ht 162.6 cm; Wt 167.8 kg
[~2019-04-11 16:10] MED LIST changes: -BENA20TA10 MT
[2019-04-11] MEDS ORDERED: IPRATROPIUM BROMIDE (0.02%) 0.5MG/2.5ML NEB HHN STA (16:31)
[2019-04-11] MEDS ORDERED: METHYLPREDNISOLONE SOD SUCC 125 MG/2 ML VIAL IV STA (16:31)
[2019-04-11] MEDS ORDERED: ALBUTEROL (0.083%) 2.5MG/3ML NEB HHN STA (16:31)
[2019-04-11] MEDS ORDERED: ASPIRIN 81MG TABLET PO ONE (16:45)
[2019-04-11 17:18] LABS: BG BASE EXCESS 4.6 mmol/L (-2.0-2.0); BG BILEVEL POS AIRWAY PRESSURE 15/5; BG CARBOXYHEMOGLOBIN 0.3 % (0.5-1.5); BG DEOXYHEMOGLOBIN 0.9 % (0.0-5.0); BG FRACTION INSPIRED OXYGEN 40; BG HCO3 ACT 31.2 mmol/L (22.0-26.0); BG METHEMOGLOBIN 0.2 % (0.0-1.5); BG OXYGEN SATURATION 99.1 % (92.0-98.5); BG OXYHEMOGLOBIN 98.6 % (94.0-97.0); BG PCO2 56.6 mmHg (35.0-45.0); BG PH 7.359 (7.350-7.450); BG PO2 171.9 mmHg (75.0-100.0); BG SAMPLE SITE RIGHT RADIAL; BG TOTAL HEMOGLOBIN 10.7 g/dL (12.0-18.0); BG VENT MODE MASK - BIPAP; BG VENT RATE 16 set
[2019-04-11 17:24] LABS: BASOPHILS % 0.5 % (0.0-2.0); EOSINOPHILS % 2.9 % (0.0-5.0); HEMATOCRIT. 29.8 % (36.0-48.0); HEMOGLOBIN. 9.4 g/dL (12.0-16.0); MEAN CORPUSCULAR HEMOGLOBIN 27.3 pg (28.0-32.0); MEAN CORPUSCULAR VOLUME 86.1 fL (81.0-99.0); MEAN PLATELET VOLUME 8.7 fl (7.4-10.4); MONOCYTES % 7.9 % (2.0-8.0); NEUTROPHILS % 58.7 % (40.0-76.0); PLATELET 152 x1000/uL (130-400); RED BLOOD CELL COUNT 3.46 mill/uL (4.2-5.4); RED CELL DISTRIBUTION WIDTH 23.2 % (11.6-14.6)
[2019-04-11] MEDS ORDERED: FUROSEMIDE 100MG/10ML VIAL IVP ONE (17:30)
[2019-04-11 17:31] LABS: CHLORIDE 103 mEq/L (98-107)
[2019-04-11 17:32] LABS: PARTIAL THROMBOPLASTIN TIME 25.9 sec (23.4-31.0); PROTHROMBIN TIME 10.2 sec (9.6-11.0)
[2019-04-11 17:42] LABS: PLATELET ESTIMATE NORMAL
[2019-04-11] MEDS ORDERED: DIPHENHYDRAMINE 50MG/ML VIAL IV ONE (18:15)
[2019-04-11] MEDS ORDERED: ALBUTEROL (0.5%) 2.5MG/0.5ML NEB HHN ONE (21:41)
[2019-04-11 22:15] VITALS: BP 128/81
[2019-04-11 22:30] VITALS: BP 128/81
[2019-04-11] MEDS ORDERED: ONDANSETRON HCL 4MG/2ML INJ IV PRN (23:30)
[2019-04-11] MEDS ORDERED: ACETAMINOPHEN 325MG TABLET PO PRN (23:45)
[2019-04-12] VITALS (12 sets, daily range): BP systolic 106–155; BP diastolic 62–100
[2019-04-12] MEDS: MORPHINE SULFATE 2 MG/ML CPJ (NOT FOR IM USE) IV PRN ×5 (00:33→20:00)
[2019-04-12] MEDS: IPRATROPIUM/ALBUTEROL 0.5-3(2.5)MG/3ML NEB HHN SCH ×6 (00:38→20:09)
[2019-04-12] MEDS ORDERED: DIPHENHYDRAMINE 50MG CAPSULE PO PRN (01:15)
[2019-04-12] MEDS ORDERED: DIPHENHYDRAMINE 50MG/ML VIAL IV PRN (03:45)
[2019-04-12] MEDS ORDERED: ALBUTEROL (0.083%) 2.5MG/3ML NEB HHN SCH (06:00)
[2019-04-12 06:30] LABS: CHLORIDE 98 mEq/L (98-107)
[2019-04-12] MEDS: BLOOD SUGAR DIAGNOSTIC STRIP TEST SCH ×4 (07:33→21:00)
[2019-04-12] MEDS: METFORMIN HCL 500MG TABLET PO SCH ×2 (08:00→17:31)
[2019-04-12] MEDS: INSULIN LISPRO 100 UNITS/ML SUBCUT SCH ×4 (08:00→21:15)
[2019-04-12] MEDS ORDERED: ADVAIR SCH (09:00)
[2019-04-12] MEDS ORDERED: BUDESONIDE 0.5MG/2ML NEB HHN SCH ×2 (09:00→13:00)
[2019-04-12] MEDS ORDERED: PREDNISONE 20MG TABLET PO SCH (09:00)
[2019-04-12] MEDS ORDERED: [UNRECOGNIZED DRUG - OTHER] INH SCH (09:00)
[2019-04-12] MEDS ORDERED: ADVAIR INH SCH (09:00)
[2019-04-12] MEDS ORDERED: ENOXAPARIN 40MG/0.4ML SYR SUBCUT SCH (09:00)
[2019-04-12] MEDS: QUETIAPINE FUMARATE 25MG TABLET PO SCH ×2 (09:43→20:57)
[2019-04-12] MEDS: ASPIRIN 81MG TABLET PO SCH (09:43)
[2019-04-12] MEDS: CITALOPRAM HYDROBROMIDE 10MG TABLET PO SCH (09:43)
[2019-04-12] MEDS: FAMOTIDINE 20MG/2ML VIAL IV SCH (09:43)
[2019-04-12] MEDS: ENOXAPARIN 30MG/0.3ML SYR SUBCUT SCH ×2 (09:44→20:57)
[2019-04-12] MEDS ORDERED: INSULIN GLARGINE UD 100 UNITS/ML SYR SUBCUT SCH (10:00)
[2019-04-12] MEDS: LEVOFLOXACIN 500MG TABLET PO SCH (10:50)
[2019-04-12] MEDS: DIPHENHYDRAMINE 25MG CAPSULE PO PRN ×2 (12:16→19:57)
[2019-04-12] MEDS: NYSTATIN 100,000 UNITS/ML 5ML UDC SSW SCH ×3 (12:16→23:19)
[2019-04-12] MEDS: HYDROCODONE/ACETAMINOPHEN 5/325MG TABLET PO PRN (13:31)
[2019-04-12] MEDS: GLIPIZIDE 5MG TABLET PO SCH (17:31)
[2019-04-12] MEDS: BUDESONIDE 0.5MG/2ML NEB HHN SCH (20:13)
[2019-04-12] MEDS: INSULIN GLARGINE UD 100 UNITS/ML SYR SUBCUT SCH (21:16)
[2019-04-13] VITALS (13 sets, daily range): BP systolic 116–165; BP diastolic 34–109
[2019-04-13] MEDS: IPRATROPIUM/ALBUTEROL 0.5-3(2.5)MG/3ML NEB HHN SCH ×6 (00:15→20:10)
[2019-04-13] MEDS: NYSTATIN 100,000 UNITS/ML 5ML UDC SSW SCH ×3 (06:03→17:47)
[2019-04-13] MEDS: GLIPIZIDE 5MG TABLET PO SCH ×2 (06:03→17:47)
[2019-04-13] MEDS: MORPHINE SULFATE 2 MG/ML CPJ (NOT FOR IM USE) IV PRN ×3 (07:00→22:45)
[2019-04-13] MEDS: INSULIN LISPRO 100 UNITS/ML SUBCUT SCH ×7 (07:30→20:53)
[2019-04-13] MEDS: BLOOD SUGAR DIAGNOSTIC STRIP TEST SCH ×4 (07:57→20:51)
[2019-04-13] MEDS: BUDESONIDE 0.5MG/2ML NEB HHN SCH ×2 (08:02→09:26)
[2019-04-13] MEDS ORDERED: CLONIDINE 0.1MG TABLET PO PRN (08:45)
[2019-04-13] MEDS: METFORMIN HCL 500MG TABLET PO SCH ×2 (09:00→17:47)
[2019-04-13] MEDS: FAMOTIDINE 20MG/2ML VIAL IV SCH (09:00)
[2019-04-13] MEDS: CITALOPRAM HYDROBROMIDE 10MG TABLET PO SCH (09:01)
[2019-04-13] MEDS: ASPIRIN 81MG TABLET PO SCH (09:01)
[2019-04-13] MEDS: QUETIAPINE FUMARATE 25MG TABLET PO SCH ×2 (09:01→22:27)
[2019-04-13] MEDS: ENOXAPARIN 30MG/0.3ML SYR SUBCUT SCH ×2 (09:03→20:51)
[2019-04-13] MEDS: INSULIN GLARGINE UD 100 UNITS/ML SYR SUBCUT SCH ×2 (09:53→22:28)
[2019-04-13] MEDS: AMLODIPINE 10MG TABLET PO SCH (09:54)
[2019-04-13] MEDS ORDERED: METHYLPREDNISOLONE SOD SUCC 40 MG/ML VIAL IV SCH (11:00)
[2019-04-13] MEDS: LEVOFLOXACIN 500MG TABLET PO SCH (12:09)
[2019-04-13] MEDS: GUAIFENESIN 600MG ER TABLET PO SCH ×2 (12:38→20:50)
[2019-04-13] MEDS: DIPHENHYDRAMINE 50MG/ML VIAL IV PRN ×2 (12:39→20:50)
[2019-04-13] MEDS: PREDNISONE 20MG TABLET PO SCH (13:39)
[2019-04-13] MEDS ORDERED: LIDOCAINE HCL 1% 20ML VIAL (Pyxis) INJ ONE (14:34)
[2019-04-13] MEDS: HYDROCODONE/ACETAMINOPHEN 5/325MG TABLET PO PRN (15:24)
[2019-04-14] VITALS (10 sets, daily range): BP systolic 137–164; BP diastolic 76–113
[2019-04-14] MEDS: IPRATROPIUM/ALBUTEROL 0.5-3(2.5)MG/3ML NEB HHN SCH ×6 (00:11→20:08)
[2019-04-14] MEDS: NYSTATIN 100,000 UNITS/ML 5ML UDC SSW SCH ×4 (00:55→17:00)
[2019-04-14] MEDS: BLOOD SUGAR DIAGNOSTIC STRIP TEST SCH ×4 (07:30→20:47)
[2019-04-14] MEDS: INSULIN LISPRO 100 UNITS/ML SUBCUT SCH ×8 (08:01→20:49)
[2019-04-14] MEDS: FAMOTIDINE 20MG/2ML VIAL IV SCH (08:18)
[2019-04-14] MEDS: ENOXAPARIN 30MG/0.3ML SYR SUBCUT SCH ×2 (08:18→20:47)
[2019-04-14] MEDS: GUAIFENESIN 600MG ER TABLET PO SCH (08:19)
[2019-04-14] MEDS: CITALOPRAM HYDROBROMIDE 10MG TABLET PO SCH (08:19)
[2019-04-14] MEDS: ASPIRIN 81MG TABLET PO SCH (08:19)
[2019-04-14] MEDS: GLIPIZIDE 5MG TABLET PO SCH ×2 (08:19→17:01)
[2019-04-14] MEDS: METFORMIN HCL 500MG TABLET PO SCH ×2 (08:20→17:00)
[2019-04-14] MEDS: AMLODIPINE 10MG TABLET PO SCH (08:20)
[2019-04-14] MEDS: PREDNISONE 20MG TABLET PO SCH (08:20)
[2019-04-14] MEDS: MORPHINE SULFATE 2 MG/ML CPJ (NOT FOR IM USE) IV PRN ×4 (08:22→21:51)
[2019-04-14] MEDS: QUETIAPINE FUMARATE 25MG TABLET PO SCH ×2 (08:36→20:45)
[2019-04-14] MEDS: DIPHENHYDRAMINE 50MG/ML VIAL IV PRN ×3 (08:36→22:09)
[2019-04-14] MEDS: LEVOFLOXACIN 500MG TABLET PO SCH (10:17)
[2019-04-14] MEDS: INSULIN GLARGINE UD 100 UNITS/ML SYR SUBCUT SCH ×2 (10:18→21:59)
[2019-04-14] MEDS: LOSARTAN POTASSIUM 50 MG TABLET PO SCH (14:38)
[2019-04-14] MEDS: LIDOCAINE 5% PATCH TOP SCH (14:41)
[2019-04-14] MEDS: ACETYLCYSTEINE 100MG/ML 10% VIAL 4ML INH SCH (16:30)
[2019-04-14] MEDS: HYDROCODONE/ACETAMINOPHEN 5/325MG TABLET PO PRN (19:39)
[2019-04-14] MEDS: BUDESONIDE 0.5MG/2ML NEB HHN SCH (20:09)
[2019-04-15] VITALS (7 sets, daily range): BP systolic 128–144; BP diastolic 77–99
[2019-04-15] MEDS: IPRATROPIUM/ALBUTEROL 0.5-3(2.5)MG/3ML NEB HHN SCH ×2 (00:06→04:00)
[2019-04-15] MEDS: ACETYLCYSTEINE 100MG/ML 10% VIAL 4ML INH SCH ×3 (00:07→18:03)
[2019-04-15] MEDS: NYSTATIN 100,000 UNITS/ML 5ML UDC SSW SCH ×5 (01:27→23:41)
[2019-04-15] MEDS: MORPHINE SULFATE 2 MG/ML CPJ (NOT FOR IM USE) IV PRN ×4 (02:22→22:39)
[2019-04-15] MEDS: DIPHENHYDRAMINE 50MG/ML VIAL IV PRN ×3 (04:57→21:30)
[2019-04-15] MEDS: INSULIN LISPRO 100 UNITS/ML SUBCUT SCH ×7 (07:30→21:32)
[2019-04-15] MEDS: BLOOD SUGAR DIAGNOSTIC STRIP TEST SCH ×4 (07:55→21:00)
[2019-04-15] MEDS: GLIPIZIDE 5MG TABLET PO SCH ×2 (08:11→17:31)
[2019-04-15] MEDS: PREDNISONE 20MG TABLET PO SCH (08:11)
[2019-04-15] MEDS: FAMOTIDINE 20MG/2ML VIAL IV SCH (08:11)
[2019-04-15] MEDS: QUETIAPINE FUMARATE 25MG TABLET PO SCH ×2 (08:11→21:30)
[2019-04-15] MEDS: ASPIRIN 81MG TABLET PO SCH (08:12)
[2019-04-15] MEDS: CITALOPRAM HYDROBROMIDE 10MG TABLET PO SCH (08:12)
[2019-04-15] MEDS: LOSARTAN POTASSIUM 50 MG TABLET PO SCH (08:12)
[2019-04-15] MEDS: AMLODIPINE 10MG TABLET PO SCH (08:12)
[2019-04-15] MEDS: METFORMIN HCL 500MG TABLET PO SCH ×2 (08:12→17:34)
[2019-04-15] MEDS: ENOXAPARIN 30MG/0.3ML SYR SUBCUT SCH ×2 (08:13→21:31)
[2019-04-15] MEDS: ALBUTEROL (0.083%) 2.5MG/3ML NEB HHN SCH ×4 (09:46→19:58)
[2019-04-15] MEDS: BUDESONIDE 0.5MG/2ML NEB HHN SCH (09:46)
[2019-04-15] MEDS: INSULIN GLARGINE UD 100 UNITS/ML SYR SUBCUT SCH ×2 (10:24→21:32)
[2019-04-15] MEDS: LEVOFLOXACIN 500MG TABLET PO SCH (10:26)
[2019-04-15] MEDS: GUAIFENESIN 600MG ER TABLET PO SCH ×2 (11:58→21:30)
[2019-04-15] MEDS: LIDOCAINE 5% PATCH TOP SCH (14:03)
[2019-04-16] VITALS: BP 129/86
[2019-04-16] MEDS: ALBUTEROL (0.083%) 2.5MG/3ML NEB HHN SCH ×6 (00:08→20:44)
[2019-04-16] MEDS: ACETYLCYSTEINE 100MG/ML 10% VIAL 4ML INH SCH ×3 (00:09→15:54)
[2019-04-16 04:00] VITALS: BP 127/75
[2019-04-16] MEDS: MORPHINE SULFATE 2 MG/ML CPJ (NOT FOR IM USE) IV PRN ×5 (04:38→21:40)
[2019-04-16] MEDS: NYSTATIN 100,000 UNITS/ML 5ML UDC SSW SCH ×4 (05:59→23:59)
[2019-04-16] MEDS: DIPHENHYDRAMINE 50MG/ML VIAL IV PRN ×3 (05:59→19:06)
[2019-04-16 08:00] VITALS: BP 140/78
[2019-04-16] MEDS: BLOOD SUGAR DIAGNOSTIC STRIP TEST SCH ×4 (08:00→21:13)
[2019-04-16] MEDS: INSULIN LISPRO 100 UNITS/ML SUBCUT SCH ×7 (08:00→21:41)
[2019-04-16] MEDS: GLIPIZIDE 5MG TABLET PO SCH ×2 (09:32→17:38)
[2019-04-16] MEDS: METFORMIN HCL 500MG TABLET PO SCH ×2 (09:33→17:38)
[2019-04-16] MEDS: GUAIFENESIN 600MG ER TABLET PO SCH ×2 (09:34→21:38)
[2019-04-16] MEDS: CITALOPRAM HYDROBROMIDE 10MG TABLET PO SCH (09:34)
[2019-04-16] MEDS: ASPIRIN 81MG TABLET PO SCH (09:34)
[2019-04-16] MEDS: LOSARTAN POTASSIUM 50 MG TABLET PO SCH (09:34)
[2019-04-16] MEDS: FAMOTIDINE 20MG/2ML VIAL IV SCH (09:34)
[2019-04-16] MEDS: AMLODIPINE 10MG TABLET PO SCH (09:35)
[2019-04-16] MEDS: QUETIAPINE FUMARATE 25MG TABLET PO SCH ×2 (09:36→21:38)
[2019-04-16] MEDS: ENOXAPARIN 30MG/0.3ML SYR SUBCUT SCH ×2 (09:36→21:39)
[2019-04-16] MEDS: PREDNISONE 20MG TABLET PO SCH (09:36)
[2019-04-16] MEDS: LIDOCAINE 5% PATCH TOP SCH (09:38)
[2019-04-16] MEDS: LEVOFLOXACIN 500MG TABLET PO SCH (11:56)
[2019-04-16 12:00] VITALS: BP 132/90
[2019-04-16] MEDS: INSULIN GLARGINE UD 100 UNITS/ML SYR SUBCUT SCH ×2 (12:32→21:41)
[2019-04-16 20:00] VITALS: BP 140/87
[2019-04-17] VITALS: BP 134/83
[2019-04-17] MEDS: ACETYLCYSTEINE 100MG/ML 10% VIAL 4ML INH SCH ×3 (00:52→15:38)
[2019-04-17] MEDS: ALBUTEROL (0.083%) 2.5MG/3ML NEB HHN SCH ×6 (00:52→20:40)
[2019-04-17 04:00] VITALS: BP 144/88
[2019-04-17] MEDS: NYSTATIN 100,000 UNITS/ML 5ML UDC SSW SCH ×3 (04:59→17:18)
[2019-04-17] MEDS: DIPHENHYDRAMINE 50MG/ML VIAL IV PRN ×3 (04:59→18:32)
[2019-04-17] MEDS: HYDROCODONE/ACETAMINOPHEN 5/325MG TABLET PO PRN (05:01)
[2019-04-17] MEDS: INSULIN LISPRO 100 UNITS/ML SUBCUT SCH ×7 (07:30→20:57)
[2019-04-17] MEDS: BLOOD SUGAR DIAGNOSTIC STRIP TEST SCH ×4 (07:30→20:57)
[2019-04-17] MEDS ORDERED: NA PHOS,M-B/NA PHOS,DI-BA ENEMA 118ML PR SCH (07:30)
[2019-04-17 08:00] VITALS: BP 133/81
[2019-04-17] MEDS: QUETIAPINE FUMARATE 25MG TABLET PO SCH ×2 (09:34→20:56)
[2019-04-17] MEDS: ASPIRIN 81MG TABLET PO SCH (09:34)
[2019-04-17] MEDS: AMLODIPINE 10MG TABLET PO SCH (09:34)
[2019-04-17] MEDS: CITALOPRAM HYDROBROMIDE 10MG TABLET PO SCH (09:34)
[2019-04-17] MEDS: LOSARTAN POTASSIUM 50 MG TABLET PO SCH (09:34)
[2019-04-17] MEDS: METFORMIN HCL 500MG TABLET PO SCH ×2 (09:35→17:19)
[2019-04-17] MEDS: ENOXAPARIN 30MG/0.3ML SYR SUBCUT SCH ×2 (09:35→20:50)
[2019-04-17] MEDS: PREDNISONE 20MG TABLET PO SCH (09:35)
[2019-04-17] MEDS: FAMOTIDINE 20MG/2ML VIAL IV SCH (09:35)
[2019-04-17] MEDS: GLIPIZIDE 5MG TABLET PO SCH ×2 (09:35→17:18)
[2019-04-17] MEDS: LIDOCAINE 5% PATCH TOP SCH (09:37)
[2019-04-17] MEDS: MORPHINE SULFATE 2 MG/ML CPJ (NOT FOR IM USE) IV PRN ×3 (09:37→21:01)
[2019-04-17] MEDS: DEXTROSE 50% WATER 50ML SYRINGE IV PRN (09:38)
[2019-04-17] MEDS: INSULIN GLARGINE UD 100 UNITS/ML SYR SUBCUT SCH ×2 (10:29→21:18)
[2019-04-17] MEDS: LEVOFLOXACIN 500MG TABLET PO SCH (11:00)
[2019-04-17 12:00] VITALS: BP 135/82
[2019-04-17] MEDS: GUAIFENESIN 600MG ER TABLET PO SCH ×2 (14:03→20:50)
[2019-04-17 22:00] VITALS: BP 143/92
[2019-04-18] MEDS: DIPHENHYDRAMINE 50MG/ML VIAL IV PRN ×4 (00:32→22:08)
[2019-04-18] MEDS: NYSTATIN 100,000 UNITS/ML 5ML UDC SSW SCH ×5 (00:32→23:41)
[2019-04-18] MEDS: ACETYLCYSTEINE 100MG/ML 10% VIAL 4ML INH SCH ×3 (01:05→17:19)
[2019-04-18] MEDS: ALBUTEROL (0.083%) 2.5MG/3ML NEB HHN SCH ×6 (01:07→20:21)
[2019-04-18] MEDS: MORPHINE SULFATE 2 MG/ML CPJ (NOT FOR IM USE) IV PRN ×5 (01:43→23:31)
[2019-04-18 04:00] VITALS: BP 139/94
[2019-04-18] MEDS: BLOOD SUGAR DIAGNOSTIC STRIP TEST SCH ×4 (07:30→21:00)
[2019-04-18] MEDS: INSULIN LISPRO 100 UNITS/ML SUBCUT SCH ×4 (08:00→21:57)
[2019-04-18 08:02] VITALS: BP 137/84
[2019-04-18] MEDS: METFORMIN HCL 500MG TABLET PO SCH ×2 (08:13→17:13)
[2019-04-18] MEDS: GLIPIZIDE 5MG TABLET PO SCH ×2 (08:13→16:09)
[2019-04-18] MEDS: DEXTROSE 50% WATER 50ML SYRINGE IV PRN (08:24)
[2019-04-18] MEDS: LIDOCAINE 5% PATCH TOP SCH (09:33)
[2019-04-18] MEDS: FAMOTIDINE 20MG/2ML VIAL IV SCH (09:33)
[2019-04-18] MEDS: LOSARTAN POTASSIUM 50 MG TABLET PO SCH (09:33)
[2019-04-18] MEDS: GUAIFENESIN 600MG ER TABLET PO SCH ×2 (09:33→21:50)
[2019-04-18] MEDS: QUETIAPINE FUMARATE 25MG TABLET PO SCH ×2 (09:33→21:50)
[2019-04-18] MEDS: PREDNISONE 20MG TABLET PO SCH (09:33)
[2019-04-18] MEDS: AMLODIPINE 10MG TABLET PO SCH (09:35)
[2019-04-18] MEDS: ASPIRIN 81MG TABLET PO SCH (09:35)
[2019-04-18] MEDS: CITALOPRAM HYDROBROMIDE 10MG TABLET PO SCH (09:35)
[2019-04-18] MEDS: LEVOFLOXACIN 500MG TABLET PO SCH (09:35)
[2019-04-18] MEDS: ENOXAPARIN 30MG/0.3ML SYR SUBCUT SCH (09:36)
[2019-04-18] MEDS: INSULIN GLARGINE UD 100 UNITS/ML SYR SUBCUT SCH ×2 (09:37→21:58)
[2019-04-18 12:00] VITALS: BP 159/75
[2019-04-18 16:00] VITALS: BP 132/76
[2019-04-18] MEDS ORDERED: DOCUSATE SODIUM 100MG CAPSULE PO SCH (17:00)
[2019-04-18 20:00] VITALS: BP 129/80
[2019-04-18] MEDS ORDERED: FLUTICASONE PROPIONATE 50MCG/SPRAY BOTTLE BOTHNSTRLS SCH (21:00)
[2019-04-18] MEDS: ENOXAPARIN 40MG/0.4ML SYR SUBCUT SCH ×2 (21:49→22:09)
[2019-04-19] VITALS: BP 144/83
[2019-04-19] MEDS: ALBUTEROL (0.083%) 2.5MG/3ML NEB HHN SCH ×3 (00:26→10:03)
[2019-04-19] MEDS: ACETYLCYSTEINE 100MG/ML 10% VIAL 4ML INH SCH ×2 (00:27→10:02)
[2019-04-19] MEDS: MORPHINE SULFATE 2 MG/ML CPJ (NOT FOR IM USE) IV PRN ×3 (03:31→11:13)
[2019-04-19] MEDS: BLOOD SUGAR DIAGNOSTIC STRIP TEST SCH (06:39)
[2019-04-19] MEDS: INSULIN LISPRO 100 UNITS/ML SUBCUT SCH (06:39)
[2019-04-19] MEDS: GLIPIZIDE 5MG TABLET PO SCH ×2 (06:39→10:26)
[2019-04-19] MEDS: NYSTATIN 100,000 UNITS/ML 5ML UDC SSW SCH ×2 (06:57→10:27)
[2019-04-19] MEDS ORDERED: LIDO700A30 TP (10:19)
[2019-04-19] MEDS ORDERED: GUAI5SYR3 MT (10:19)
[2019-04-19] MEDS: FAMOTIDINE 20MG/2ML VIAL IV SCH (10:23)
[2019-04-19] MEDS: DIPHENHYDRAMINE 50MG/ML VIAL IV PRN (10:23)
[2019-04-19] MEDS: AMLODIPINE 10MG TABLET PO SCH (10:24)
[2019-04-19] MEDS: LOSARTAN POTASSIUM 50 MG TABLET PO SCH (10:25)
[2019-04-19] MEDS: CITALOPRAM HYDROBROMIDE 10MG TABLET PO SCH (10:25)
[2019-04-19] MEDS: METFORMIN HCL 500MG TABLET PO SCH (10:25)
[2019-04-19] MEDS: QUETIAPINE FUMARATE 25MG TABLET PO SCH (10:26)
[2019-04-19] MEDS ORDERED: GLIP10TA10 MT (11:13)
[2019-04-19] MEDS ORDERED: FLUCONAZOLE 150MG TABLET PO SCH (13:00)
[2019-04-19 13:34] VITALS: BP 148/81
== END 2019-04-19 14:50 | disposition home or self-care (01) | DRG 140 ==
LOC: ER 16:10 → 5EST 18:08 → EDBEDREQTM 18:09 → EDBEDREQ 18:09 → EDBEDREQSVC 18:09 → ENRESERV 20:03 → 8WST 04-18 13:08
PROVIDERS: ADMIT Internal Medicine; ATTEND Internal Medicine
PROC: 5A09357 Assistance with Respiratory Ventilation, Less than 24 Consecutive Hours, Continuous Positive Airway Pressure (ICD-10-PCS; 2019-04-11)
PROC: 5A09357 Assistance with Respiratory Ventilation, Less than 24 Consecutive Hours, Continuous Positive Airway Pressure (ICD-10-PCS; 2019-04-12)
PROC: 05HY33Z Insertion of Infusion Device into Upper Vein, Percutaneous Approach (ICD-10-PCS; principal; 2019-04-13)
PROC: B54MZZA Ultrasonography of Right Upper Extremity Veins, Guidance (ICD-10-PCS; 2019-04-13)
PROC: 5A09357 Assistance with Respiratory Ventilation, Less than 24 Consecutive Hours, Continuous Positive Airway Pressure (ICD-10-PCS; 2019-04-13)
PROC: 5A09357 Assistance with Respiratory Ventilation, Less than 24 Consecutive Hours, Continuous Positive Airway Pressure (ICD-10-PCS; 2019-04-14)
PROC: 5A09357 Assistance with Respiratory Ventilation, Less than 24 Consecutive Hours, Continuous Positive Airway Pressure (ICD-10-PCS; 2019-04-15)
PROC: 5A09357 Assistance with Respiratory Ventilation, Less than 24 Consecutive Hours, Continuous Positive Airway Pressure (ICD-10-PCS; 2019-04-16)
PROC: 5A09357 Assistance with Respiratory Ventilation, Less than 24 Consecutive Hours, Continuous Positive Airway Pressure (ICD-10-PCS; 2019-04-17)
PROC: 5A09357 Assistance with Respiratory Ventilation, Less than 24 Consecutive Hours, Continuous Positive Airway Pressure (ICD-10-PCS; 2019-04-18)
PROC: 5A09357 Assistance with Respiratory Ventilation, Less than 24 Consecutive Hours, Continuous Positive Airway Pressure (ICD-10-PCS; 2019-04-19)
DX: J44.1 Chronic obstructive pulmonary disease with (acute) exacerbation (principal); J96.20 Acute and chronic respiratory failure, unspecified whether with hypoxia or hypercapnia; I50.33 Acute on chronic diastolic (congestive) heart failure; E44.0 Moderate protein-calorie malnutrition; Z68.44 Body mass index [BMI] 60.0-69.9, adult; E66.2 Morbid (severe) obesity with alveolar hypoventilation; E11.65 Type 2 diabetes mellitus with hyperglycemia; J98.11 Atelectasis; I11.0 Hypertensive heart disease with heart failure; D64.9 Anemia, unspecified; F41.0 Panic disorder [episodic paroxysmal anxiety]; J00 Acute nasopharyngitis [common cold]; J98.4 Other disorders of lung; M19.90 Unspecified osteoarthritis, unspecified site; K59.00 Constipation, unspecified; K76.0 Fatty (change of) liver, not elsewhere classified; Z76.5 Malingerer [conscious simulation]; Z99.81 Dependence on supplemental oxygen; Z88.1 Allergy status to other antibiotic agents; Z91.013 Allergy to seafood; Z91.09 Other allergy status, other than to drugs and biological substances; Z90.49 Acquired absence of other specified parts of digestive tract; Z98.891 History of uterine scar from previous surgery; Z71.3 Dietary counseling and surveillance
CPT/HCPCS: 36415; 36600; 71045; 73560; 76856; 76937; 80048; 82375; 82805; 82962; 83036; 83880; 84484; 93005; 94640; 94660; 97162; 99285; C1725; J1200; J1650; J1815; J1940; J2270; J2920; J2930; J3490; J7512; J7608; J7611; J7620; J7626; Q0163

== ENCOUNTER 2020-03-24 01:29 | Emergency (ER) | payer MEDICAID ==
[~2020-03-24] VITALS: Ht 157.5 cm; Wt 182.0 kg
[~2020-03-24 01:29] MED LIST changes: -ASPI-1393 PO; +ASPI-1497 PO; +GLIP10TA10 MT; +GUAI5SYR3 MT; +LIDO700A30 TP
[2020-03-24] MEDS ORDERED: SODIUM CHLORIDE 0.9% 1,000 ML IV ONE (02:31)
[2020-03-24 02:57] LABS: BASOPHILS % 0.5 % (0.0-2.0); EOSINOPHILS % 2.6 % (0.0-5.0); HEMATOCRIT. 38.6 % (36.0-48.0); HEMOGLOBIN. 12.3 g/dL (12.0-16.0); LYMPHOCYTES % 34.5 % (20.0-50.0); MEAN CORPUSCULAR HEMOGLOBIN 26.3 pg (28.0-32.0); MEAN CORPUSCULAR VOLUME 82.7 fL (81.0-99.0); MEAN PLATELET VOLUME 7.5 fl (7.4-10.4); MONOCYTES % 3.5 % (2.0-8.0); NEUTROPHILS % 58.9 % (40.0-76.0); PLATELET 408 x1000/uL (130-400); RED BLOOD CELL COUNT 4.66 mill/uL (4.2-5.4); RED CELL DISTRIBUTION WIDTH 18.3 % (11.6-14.6)
[2020-03-24 03:02] LABS: CHLORIDE 99 mEq/L (98-107)
[2020-03-24 03:07] LABS: ETHANOL BLOOD 162 mg/dL; INR 1.1; PROTHROMBIN TIME 11.4 sec (9.6-11.0)
[2020-03-25 04:37] VITALS: BP 130/76
== END 2020-03-25 06:00 | disposition home or self-care (01) ==
LOC: ER 01:29
DX: R19.7 Diarrhea, unspecified (principal); R10.9 Unspecified abdominal pain; F10.129 Alcohol abuse with intoxication, unspecified; J44.9 Chronic obstructive pulmonary disease, unspecified; E11.9 Type 2 diabetes mellitus without complications; I10 Essential (primary) hypertension; E66.01 Morbid (severe) obesity due to excess calories; Z90.49 Acquired absence of other specified parts of digestive tract; Y90.6 Blood alcohol level of 120-199 mg/100 ml; Z79.4 Long term (current) use of insulin; Z79.82 Long term (current) use of aspirin; Z79.899 Other long term (current) drug therapy; Z88.1 Allergy status to other antibiotic agents; Z68.45 Body mass index [BMI] 70 or greater, adult
CPT/HCPCS: 36415; 71045; 74176; 80053; 80320; 83605; 83690; 83880; 84484; 85025; 85379; 85610; 93005; 96360; 99285; J7030; G0480

== ENCOUNTER 2020-11-15 01:30 | Inpatient (IN) | payer MEDICAID ==
[~2020-11-15] VITALS: Ht 165.1 cm; Wt 168.7 kg
[~2020-11-15 01:30] MED LIST changes: -GABA-531 PO; +GABA-532 PO; -PANT40TA4 PO; +PANT40TA51 PO
[2020-11-15] MEDS ORDERED: MAGNESIUM 2 G PREMIX 50 ML IV STA (01:42)
[2020-11-15] MEDS ORDERED: IPRATROPIUM BROMIDE (0.02%) 0.5MG/2.5ML NEB HHN STA (01:42)
[2020-11-15] MEDS ORDERED: METHYLPREDNISOLONE SOD SUCC 125 MG/2 ML VIAL IV STA (01:42)
[2020-11-15] MEDS ORDERED: ALBUTEROL (0.083%) 2.5MG/3ML NEB HHN STA (01:42)
[2020-11-15] MEDS ORDERED: FUROSEMIDE 40MG/4ML VIAL IVP ONE (02:30)
[2020-11-15 03:13] LABS: HEMATOCRIT 36.6 % (36.0-48.0); HEMOGLOBIN 11.4 g/dL (12.0-16.0); MEAN CORPUSCULAR HEMOGLOBIN 24.6 pg (28.0-32.0); MEAN CORPUSCULAR VOLUME 78.9 fL (81.0-99.0); PLATELET 405 x1000/uL (130-400); RED BLOOD CELL COUNT 4.63 mill/uL (4.2-5.4); RED CELL DISTRIBUTION WIDTH 18.6 % (11.6-14.6)
[2020-11-15] MEDS ORDERED: ACETAMINOPHEN 500MG TABLET PO ONE (03:30)
[2020-11-15 03:35] LABS: CHLORIDE 104 mEq/L (98-107)
[2020-11-15] MEDS ORDERED: ONDANSETRON HCL 4MG/2ML INJ IV PRN (09:00)
[2020-11-15] MEDS ORDERED: IPRATROPIUM/ALBUTEROL 0.5-3(2.5)MG/3ML NEB HHN PRN (09:00)
[2020-11-15] MEDS: METHYLPREDNISOLONE SOD SUCC 40 MG/ML VIAL IV SCH ×3 (10:18→22:33)
[2020-11-15] MEDS: ACETAMINOPHEN 325MG TABLET PO PRN (11:04)
[2020-11-15] MEDS: ENOXAPARIN 40MG/0.4ML SYR SUBCUT SCH ×3 (11:06→20:54)
[2020-11-15] MEDS ORDERED: MORPHINE SULFATE 2 MG/ML CPJ (NOT FOR IM USE) IV NR (12:30)
[2020-11-15] MEDS: BLOOD SUGAR DIAGNOSTIC STRIP TEST SCH ×3 (15:00→20:46)
[2020-11-15] MEDS ORDERED: DEXTROSE 50% WATER 50ML SYRINGE IV PRN (15:15)
[2020-11-15] MEDS: INSULIN LISPRO (MEDIUM DOSE) 100 UNITS/ML SUBCUT SCH ×3 (15:30→20:46)
[2020-11-15] MEDS ORDERED: INSULIN GLARGINE UD 100 UNITS/ML SYR SUBCUT NR (17:00)
[2020-11-15] MEDS: HYDROCODONE/ACETAMINOPHEN 5/325MG TABLET PO PRN ×2 (18:17→23:42)
[2020-11-15 18:45] VITALS: BP 109/97
[2020-11-15 20:00] VITALS: BP 125/71
[2020-11-15] MEDS: LORAZEPAM 0.5MG TABLET PO PRN (20:01)
[2020-11-15] MEDS: GABAPENTIN 300MG CAPSULE PO SCH (20:01)
[2020-11-15] MEDS: INSULIN GLARGINE UD 100 UNITS/ML SYR SUBCUT SCH (21:44)
[2020-11-16] VITALS: BP 143/85
[2020-11-16 04:00] VITALS: BP 131/80
[2020-11-16] MEDS: IPRATROPIUM/ALBUTEROL 0.5-3(2.5)MG/3ML NEB HHN SCH ×4 (04:10→20:52)
[2020-11-16] MEDS: METHYLPREDNISOLONE SOD SUCC 40 MG/ML VIAL IV SCH ×3 (05:36→21:00)
[2020-11-16] MEDS: BLOOD SUGAR DIAGNOSTIC STRIP TEST SCH ×4 (06:18→21:02)
[2020-11-16] MEDS: INSULIN LISPRO (MEDIUM DOSE) 100 UNITS/ML SUBCUT SCH ×4 (06:18→21:02)
[2020-11-16 08:00] VITALS: BP 151/94
[2020-11-16] MEDS: GABAPENTIN 300MG CAPSULE PO SCH ×3 (09:20→16:35)
[2020-11-16] MEDS: ENOXAPARIN 40MG/0.4ML SYR SUBCUT SCH ×2 (09:20→21:00)
[2020-11-16] MEDS: INSULIN GLARGINE UD 100 UNITS/ML SYR SUBCUT SCH ×2 (09:22→23:54)
[2020-11-16] MEDS ORDERED: P20 MT (11:04)
[2020-11-16] MEDS ORDERED: TUSSL MT (11:04)
[2020-11-16 12:00] VITALS: BP 144/95
[2020-11-16] MEDS: HYDROCODONE/ACETAMINOPHEN 5/325MG TABLET PO PRN ×2 (13:50→20:07)
[2020-11-16 16:00] VITALS: BP 142/89
[2020-11-16] MEDS: LORAZEPAM 0.5MG TABLET PO PRN (16:35)
[2020-11-16 20:00] VITALS: BP 167/80
[2020-11-16] MEDS: ACETAMINOPHEN 325MG TABLET PO PRN (21:51)
[2020-11-17] VITALS: BP 135/77
[2020-11-17] MEDS: LORAZEPAM 0.5MG TABLET PO PRN ×2 (00:21→16:43)
[2020-11-17] MEDS: HYDROCODONE/ACETAMINOPHEN 5/325MG TABLET PO PRN ×3 (00:21→17:08)
[2020-11-17] MEDS: IPRATROPIUM/ALBUTEROL 0.5-3(2.5)MG/3ML NEB HHN SCH ×6 (00:39→21:36)
[2020-11-17 04:00] VITALS: BP 129/71
[2020-11-17] MEDS: BLOOD SUGAR DIAGNOSTIC STRIP TEST SCH ×4 (06:20→21:19)
[2020-11-17] MEDS: METHYLPREDNISOLONE SOD SUCC 40 MG/ML VIAL IV SCH ×3 (06:23→21:17)
[2020-11-17] MEDS: INSULIN LISPRO (MEDIUM DOSE) 100 UNITS/ML SUBCUT SCH ×4 (06:29→21:18)
[2020-11-17] MEDS: GABAPENTIN 300MG CAPSULE PO SCH ×3 (08:31→16:18)
[2020-11-17] MEDS: ENOXAPARIN 40MG/0.4ML SYR SUBCUT SCH ×2 (08:31→21:17)
[2020-11-17 08:52] VITALS: BP 152/94
[2020-11-17 12:00] VITALS: BP 176/98
[2020-11-17] MEDS: IBUPROFEN 600MG TABLET PO PRN ×2 (12:35→22:25)
[2020-11-17] MEDS: INSULIN GLARGINE UD 100 UNITS/ML SYR SUBCUT SCH ×2 (12:42→21:19)
[2020-11-17 16:00] VITALS: BP_SYST 150; BP_SYST 183; BP_DIAS 108; BP_DIAS 74
[2020-11-17 20:00] VITALS: BP 147/97
[2020-11-18] VITALS (7 sets, daily range): BP systolic 119–198; BP diastolic 75–105
[2020-11-18] MEDS: LORAZEPAM 0.5MG TABLET PO PRN ×2 (00:52→13:18)
[2020-11-18] MEDS: IPRATROPIUM/ALBUTEROL 0.5-3(2.5)MG/3ML NEB HHN SCH ×7 (01:24→19:58)
[2020-11-18] MEDS: BLOOD SUGAR DIAGNOSTIC STRIP TEST SCH ×4 (06:43→21:17)
[2020-11-18] MEDS: INSULIN LISPRO (MEDIUM DOSE) 100 UNITS/ML SUBCUT SCH ×4 (06:48→21:17)
[2020-11-18] MEDS: METHYLPREDNISOLONE SOD SUCC 40 MG/ML VIAL IV SCH ×2 (06:48→13:18)
[2020-11-18] MEDS ORDERED: CLONIDINE 0.1MG TABLET PO PRN (08:45)
[2020-11-18] MEDS ORDERED: DIPHENHYDRAMINE 50MG CAPSULE PO PRN (08:45)
[2020-11-18] MEDS: ENOXAPARIN 40MG/0.4ML SYR SUBCUT SCH ×2 (08:56→21:16)
[2020-11-18] MEDS: INSULIN GLARGINE UD 100 UNITS/ML SYR SUBCUT SCH (08:56)
[2020-11-18] MEDS: GABAPENTIN 300MG CAPSULE PO SCH ×3 (08:57→17:17)
[2020-11-18] MEDS ORDERED: AMLODIPINE 10MG TABLET PO SCH (09:00)
[2020-11-18] MEDS: IBUPROFEN 600MG TABLET PO PRN (09:09)
[2020-11-18] MEDS: HYDRALAZINE HCL 100MG TABLET PO SCH ×2 (13:18→21:16)
[2020-11-18] MEDS: HYDROCODONE/ACETAMINOPHEN 5/325MG TABLET PO PRN (16:04)
[2020-11-18] MEDS ORDERED: PREDNISONE 20MG TABLET PO SCH (17:00)
[2020-11-18] MEDS ORDERED: INSULIN GLARGINE UD 100 UNITS/ML SYR SUBCUT SCH (22:00)
[2020-11-19] MEDS: IPRATROPIUM/ALBUTEROL 0.5-3(2.5)MG/3ML NEB HHN SCH (00:37)
== END 2020-11-19 01:00 | DRG 140 ==
LOC: ER 01:30 → 5WST 04:37 → ENRESERV 15:16
PROVIDERS: ADMIT Internal Medicine; ATTEND Internal Medicine
DX: J44.1 Chronic obstructive pulmonary disease with (acute) exacerbation (principal); J96.00 Acute respiratory failure, unspecified whether with hypoxia or hypercapnia; E66.2 Morbid (severe) obesity with alveolar hypoventilation; E11.9 Type 2 diabetes mellitus without complications; F31.9 Bipolar disorder, unspecified; Z20.822 Contact with and (suspected) exposure to COVID-19; I10 Essential (primary) hypertension; Z68.44 Body mass index [BMI] 60.0-69.9, adult; Z88.8 Allergy status to other drugs, medicaments and biological substances; Z88.1 Allergy status to other antibiotic agents; Z91.013 Allergy to seafood; Z79.899 Other long term (current) drug therapy; Z79.84 Long term (current) use of oral hypoglycemic drugs; Z87.891 Personal history of nicotine dependence
CPT/HCPCS: 36415; 71045; 80053; 82962; 85027; 87426; 93005; 94640; 97162; 99291; J1650; J1815; J1940; J2270; J2920; J2930; J3475; J7040; J7512; Q0163

== ENCOUNTER 2021-01-26 18:42 | Inpatient (IN) | payer MEDICAID ==
[~2021-01-26] VITALS: Ht 165.1 cm; Wt 172.8 kg
[~2021-01-26 18:42] MED LIST changes: +P20 MT; +TUSSL MT
[2021-01-26] MEDS ORDERED: IPRATROPIUM BROMIDE (0.02%) 0.5MG/2.5ML NEB HHN ONE (19:00)
[2021-01-26] MEDS ORDERED: ALBUTEROL (0.083%) 2.5MG/3ML NEB HHN ONE (19:00)
[2021-01-26] MEDS ORDERED: METHYLPREDNISOLONE SOD SUCC 125 MG/2 ML VIAL IV ONE (19:00)
[2021-01-26 19:21] LABS: BASOPHILS % 1.1 % (0.0-2.0); EOSINOPHILS % 4.4 % (0.0-5.0); HEMATOCRIT. 37.6 % (36.0-48.0); HEMOGLOBIN. 12.3 g/dL (12.0-16.0); LYMPHOCYTES % 51.9 % (20.0-50.0); MEAN CORPUSCULAR VOLUME 76.6 fL (81.0-99.0); MEAN PLATELET VOLUME 7.9 fl (7.4-10.4); MONOCYTES % 5.6 % (2.0-8.0); PLATELET 480 x1000/uL (130-400); RED BLOOD CELL COUNT 4.91 mill/uL (4.2-5.4); RED CELL DISTRIBUTION WIDTH 20.1 % (11.6-14.6)
[2021-01-26] MEDS ORDERED: ASPIRIN 325MG EC TABLET PO ONE (19:30)
[2021-01-26 19:35] LABS: CHLORIDE 97 mEq/L (98-107)
[2021-01-26] MEDS ORDERED: CEFTRIAXONE 1 G PREMIX 50 ML IV ONE (19:45)
[2021-01-26] MEDS ORDERED: NITROGLYCERIN 0.4MG TABLET SL SL ONE (20:15)
[2021-01-26 21:32] LABS: BG DEOXYHEMOGLOBIN 0.9 % (0.0-5.0); BG FRACTION INSPIRED OXYGEN 100; BG HCO3 ACT 23.5 mmol/L (22.0-26.0); BG METHEMOGLOBIN 0.5 % (0.0-1.5); BG OXYGEN SATURATION 99.1 % (92.0-98.5); BG OXYHEMOGLOBIN 97.6 % (94.0-97.0); BG PCO2 58.5 mmHg (35.0-45.0); BG PH 7.221 (7.350-7.450); BG PO2 179.5 mmHg (75.0-100.0); BG SAMPLE SITE RIGHT RADIAL; BG TOTAL HEMOGLOBIN 13.1 g/dL (12.0-18.0); BG VENT MODE MASK - BIPAP
[2021-01-27] VITALS (14 sets, daily range): BP systolic 103–144; BP diastolic 37–97
[2021-01-27] MEDS ORDERED: MORPHINE SULFATE 2 MG/ML CPJ (NOT FOR IM USE) IV PRN (02:15)
[2021-01-27] MEDS ORDERED: NALOXONE HCL 0.4MG/ML VIAL IV PRN ×2 (02:15→10:00)
[2021-01-27] MEDS: ONDANSETRON HCL 4MG/2ML INJ IV PRN (03:06)
[2021-01-27] MEDS ORDERED: DEXTROSE 50% WATER 50ML SYRINGE IV PRN (10:00)
[2021-01-27] MEDS ORDERED: INSU100I24 SQ (11:00)
[2021-01-27] MEDS: METHYLPREDNISOLONE SOD SUCC 40 MG/ML VIAL IV SCH ×2 (11:00→17:12)
[2021-01-27] MEDS: DIPHENHYDRAMINE 25MG CAPSULE PO PRN ×2 (11:00→17:12)
[2021-01-27] MEDS: HYDROCODONE/ACETAMINOPHEN 5/325MG TABLET PO PRN ×2 (11:13→17:13)
[2021-01-27] MEDS ORDERED: INSULIN GLARGINE UD 100 UNITS/ML SYR SUBCUT NR (11:30)
[2021-01-27] MEDS ORDERED: MORPHINE SULFATE 2 MG/ML CPJ (NOT FOR IM USE) IV NR (12:00)
[2021-01-27] MEDS: BLOOD SUGAR DIAGNOSTIC STRIP TEST SCH ×3 (12:10→20:53)
[2021-01-27] MEDS: IPRATROPIUM/ALBUTEROL 0.5-3(2.5)MG/3ML NEB HHN SCH ×3 (12:22→20:13)
[2021-01-27] MEDS: INSULIN LISPRO 100 UNITS/ML SUBCUT SCH ×3 (13:17→21:06)
[2021-01-27] MEDS: GABAPENTIN 300MG CAPSULE PO SCH ×2 (14:29→22:33)
[2021-01-27] MEDS: FAMOTIDINE 20MG TABLET PO SCH (21:02)
[2021-01-28] VITALS (15 sets, daily range): BP systolic 124–161; BP diastolic 68–103
[2021-01-28] MEDS: IPRATROPIUM/ALBUTEROL 0.5-3(2.5)MG/3ML NEB HHN SCH ×6 (00:01→21:02)
[2021-01-28] MEDS: METHYLPREDNISOLONE SOD SUCC 40 MG/ML VIAL IV SCH ×3 (02:19→17:19)
[2021-01-28] MEDS: BLOOD SUGAR DIAGNOSTIC STRIP TEST SCH ×4 (06:50→20:44)
[2021-01-28] MEDS: INSULIN LISPRO 100 UNITS/ML SUBCUT SCH ×4 (07:03→21:32)
[2021-01-28] MEDS: GABAPENTIN 300MG CAPSULE PO SCH ×3 (07:33→20:39)
[2021-01-28] MEDS: HYDROCODONE/ACETAMINOPHEN 5/325MG TABLET PO PRN (07:52)
[2021-01-28] MEDS: FAMOTIDINE 20MG TABLET PO SCH ×2 (08:39→20:39)
[2021-01-28] MEDS: ENOXAPARIN 40MG/0.4ML SYR SUBCUT SCH ×2 (09:15→20:38)
[2021-01-28 10:20] LABS: BASOPHILS % 0.1 % (0.0-2.0); EOSINOPHILS % 0.1 % (0.0-5.0); HEMATOCRIT. 33.5 % (36.0-48.0); HEMOGLOBIN. 10.8 g/dL (12.0-16.0); LYMPHOCYTES % 17.5 % (20.0-50.0); MEAN CORPUSCULAR VOLUME 77.2 fL (81.0-99.0); MONOCYTES % 2.7 % (2.0-8.0); NEUTROPHILS % 79.6 % (40.0-76.0); PLATELET 382 x1000/uL (130-400); RED BLOOD CELL COUNT 4.33 mill/uL (4.2-5.4); RED CELL DISTRIBUTION WIDTH 20.2 % (11.6-14.6)
[2021-01-28 10:45] LABS: CHLORIDE 98 mEq/L (98-107)
[2021-01-28] MEDS: HYDROCODONE/ACETAMINOPHEN 10/325MG TABLET PO PRN (12:12)
[2021-01-28] MEDS: MORPHINE SULFATE 2 MG/ML CPJ (NOT FOR IM USE) IV PRN (17:22)
[2021-01-28] MEDS: DIPHENHYDRAMINE 25MG CAPSULE PO PRN (20:39)
[2021-01-29] VITALS (10 sets, daily range): BP systolic 119–168; BP diastolic 48–107
[2021-01-29] MEDS: IPRATROPIUM/ALBUTEROL 0.5-3(2.5)MG/3ML NEB HHN SCH ×6 (00:27→20:48)
[2021-01-29] MEDS: METHYLPREDNISOLONE SOD SUCC 40 MG/ML VIAL IV SCH ×3 (00:56→18:40)
[2021-01-29 03:15] LABS: CLARITY URINE CLEAR (CLEAR); COLOR URINE YELLOW (YELLOW); KETONES URINE NEGATIVE (NEGATIVE); LEUKOCYTE ESTERASE URINE NEGATIVE (NEGATIVE); NITRITE URINE NEGATIVE (NEGATIVE); OCCULT BLOOD URINE NEGATIVE (NEGATIVE); PH URINE 7.5 (4.5-8.0); PROTEIN URINE NEGATIVE (NEGATIVE); SPECIFIC GRAVITY URINE 1.027 (1.005-1.030); UROBILINOGEN URINE 0.2 E.U./dL (0.2-1.0)
[2021-01-29] MEDS: MORPHINE SULFATE 2 MG/ML CPJ (NOT FOR IM USE) IV PRN ×3 (04:57→21:15)
[2021-01-29] MEDS: ONDANSETRON HCL 4MG/2ML INJ IV PRN (05:06)
[2021-01-29] MEDS: GUAIFENESIN-DM 200MG-20MG/10ML UDC PO PRN (06:18)
[2021-01-29] MEDS: GABAPENTIN 300MG CAPSULE PO SCH ×3 (06:18→21:14)
[2021-01-29] MEDS: BLOOD SUGAR DIAGNOSTIC STRIP TEST SCH ×4 (07:30→21:00)
[2021-01-29] MEDS: INSULIN LISPRO 100 UNITS/ML SUBCUT SCH ×4 (08:00→21:17)
[2021-01-29] MEDS: ENOXAPARIN 40MG/0.4ML SYR SUBCUT SCH ×2 (09:14→21:14)
[2021-01-29] MEDS: FAMOTIDINE 20MG TABLET PO SCH ×2 (09:14→21:14)
[2021-01-29] MEDS ORDERED: MED4 MT (14:02)
[2021-01-29 16:11] LABS: BG BASE EXCESS 6.6 mmol/L (-2.0-2.0); BG CARBOXYHEMOGLOBIN 0.4 % (0.5-1.5); BG DEOXYHEMOGLOBIN 4.7 % (0.0-5.0); BG FRACTION INSPIRED OXYGEN 36; BG HCO3 ACT 32.8 mmol/L (22.0-26.0); BG METHEMOGLOBIN 0.4 % (0.0-1.5); BG OXYGEN SATURATION 95.3 % (92.0-98.5); BG OXYHEMOGLOBIN 94.5 % (94.0-97.0); BG PH 7.394 (7.350-7.450); BG PO2 75.7 mmHg (75.0-100.0); BG SAMPLE SITE LEFT RADIAL; BG TOTAL HEMOGLOBIN 11.9 g/dL (12.0-18.0); BG VENT MODE NASAL CANNULA
[2021-01-29] MEDS: DIPHENHYDRAMINE 25MG CAPSULE PO PRN (19:41)
[2021-01-29] MEDS ORDERED: INSULIN GLARGINE UD 100 UNITS/ML SYR SUBCUT SCH (22:00)
[2021-01-30] VITALS: BP 150/98
[2021-01-30] MEDS: ACETYLCYSTEINE 100MG/ML 10% VIAL 4ML INH SCH ×2 (00:18→10:45)
[2021-01-30] MEDS: IPRATROPIUM/ALBUTEROL 0.5-3(2.5)MG/3ML NEB HHN SCH ×3 (00:18→10:45)
[2021-01-30] MEDS: METHYLPREDNISOLONE SOD SUCC 40 MG/ML VIAL IV SCH ×2 (02:02→09:26)
[2021-01-30] MEDS: MORPHINE SULFATE 2 MG/ML CPJ (NOT FOR IM USE) IV PRN (02:11)
[2021-01-30 04:00] VITALS: BP 144/89
[2021-01-30] MEDS: GABAPENTIN 300MG CAPSULE PO SCH (05:01)
[2021-01-30] MEDS: BLOOD SUGAR DIAGNOSTIC STRIP TEST SCH ×2 (07:30→13:09)
[2021-01-30 08:00] VITALS: BP 170/87
[2021-01-30] MEDS: INSULIN LISPRO 100 UNITS/ML SUBCUT SCH ×2 (08:00→13:23)
[2021-01-30] MEDS: ENOXAPARIN 40MG/0.4ML SYR SUBCUT SCH (09:00)
[2021-01-30] MEDS: FAMOTIDINE 20MG TABLET PO SCH (09:17)
[2021-01-30] MEDS: HYDROCODONE/ACETAMINOPHEN 10/325MG TABLET PO PRN (09:25)
[2021-01-30 10:00] VITALS: BP 149/80
[2021-01-30] MEDS ORDERED: BENZ-16 MT (10:01)
[2021-01-30 12:00] VITALS: BP 173/99
[2021-01-30] MEDS: GUAIFENESIN-DM 200MG-20MG/10ML UDC PO PRN (13:26)
[2021-01-30] MEDS: DIPHENHYDRAMINE 25MG CAPSULE PO PRN (13:26)
[2021-01-30] MEDS ORDERED: GUAIFENESIN/CODEINE 100-10MG/5ML UDC PO NR (13:30)
[2021-01-30] MEDS ORDERED: GUAIFENESIN/CODEINE 200-20MG/10ML UDC PO NR (13:30)
[2021-01-30 13:33] VITALS: BP 149/80
== END 2021-01-30 14:09 | disposition home or self-care (01) | DRG 140 ==
LOC: ER 18:42 → MICUSO 20:26 → 5EST 01-27 07:36
PROVIDERS: ADMIT Internal Medicine; ATTEND Internal Medicine
PROC: 5A09357 Assistance with Respiratory Ventilation, Less than 24 Consecutive Hours, Continuous Positive Airway Pressure (ICD-10-PCS; principal; 2021-01-26)
PROC: 5A09357 Assistance with Respiratory Ventilation, Less than 24 Consecutive Hours, Continuous Positive Airway Pressure (ICD-10-PCS; 2021-01-29)
DX: J44.1 Chronic obstructive pulmonary disease with (acute) exacerbation (principal); J96.01 Acute respiratory failure with hypoxia; I50.9 Heart failure, unspecified; I11.0 Hypertensive heart disease with heart failure; E11.40 Type 2 diabetes mellitus with diabetic neuropathy, unspecified; E87.8 Other disorders of electrolyte and fluid balance, not elsewhere classified; E66.9 Obesity, unspecified; E87.1 Hypo-osmolality and hyponatremia; F31.9 Bipolar disorder, unspecified; G47.33 Obstructive sleep apnea (adult) (pediatric); E87.2 Acidosis; D72.829 Elevated white blood cell count, unspecified; Z99.81 Dependence on supplemental oxygen; Z88.1 Allergy status to other antibiotic agents; Z91.013 Allergy to seafood; Z79.899 Other long term (current) drug therapy; Z79.84 Long term (current) use of oral hypoglycemic drugs; Z68.44 Body mass index [BMI] 60.0-69.9, adult
CPT/HCPCS: 36415; 36600; 71045; 80053; 81003; 82375; 82805; 82962; 83605; 83880; 84484; 85025; 93005; 94640; 94660; 99291; A6261; J0696; J1650; J1815; J2270; J2405; J2920; J2930; J7608; Q0163; A4315